=== PATIENT | female | born 1965 | race Caucasian/White ===

== ENCOUNTER → 2016-12-21 | Outpatient (CLI) | payer BC ==
[~2016-12-21] MED LIST: ACTE80IN IV; ALEV220C2 PO; APIDINJ SC; ARAV20TA PO; AZEL0.055; CAMRTAB PO; CENTTAB47 PO; CITR1CHW PO; ESTR25TA PO; IBUP600T26 PO; LEXA1TAB2 PO; LISI-538 PO; LORT5TAB PO; METF500T PO; MONT10TA2 PO; PRED10TA PO; SIMV20TA2 PO; SYNT150T PO; VALT500T PO; VERA27.5; [UNRECOGNIZED DRUG - OTHER] SQ
[2016-12-21 16:43] LABS: BASO # 0.1 K/mm3 (0.0-0.2); BASO % 1.5 % (0.0-1.0); EOS # 0.5 K/mm3 (0.0-0.50); EOS % 11.6 % (0.0-3.0); LARGE UNSTAINED CELL # 0.1 K/mm3 (0.0-0.4); LYMPH # 1.5 K/mm3 (1.5-4.5); LYMPH % 32.9 % (24.0-44.0); MEAN CORPUSCULAR HEMOGLOBIN 33.6 pg (27.0-33.0); MEAN CORPUSCULAR HGB CONC 32.5 g/dl (32.0-36.5); MEAN CORPUSCULAR VOLUME 103.5 fl (80.0-96.0); MONO # 0.4 K/mm3 (0.0-0.8); MONO % 8.2 % (0.0-5.0); NEUTROPHILS # 1.9 K/mm3 (1.8-7.7); NEUTROPHILS % 43.8 % (36.0-66.0); PLATELET COUNT, AUTOMATED 144 k/mm3 (150-450); RED CELL DISTRIBUTION WIDTH 13.1 % (11.5-14.5); WHITE BLOOD COUNT 4.3 K/mm3 (4.0-10.0)
[2016-12-21 17:01] LABS: ALBUMIN 3.4 GM/DL (3.2-5.2); CREATININE FOR GFR 1.17 MG/DL (0.55-1.02); GLOMERULAR FILTRATION RATE 52.1 (>51)
== END ==
LOC: M WUC 13:56
PROVIDERS: ATTEND Internal Medicine Rheumatology
DX: M05.79 Rheumatoid arthritis with rheumatoid factor of multiple sites without organ or systems involvement (principal); Z79.899 Other long term (current) drug therapy

== ENCOUNTER → 2017-01-18 | Outpatient (CLI) | payer BC ==
[2017-01-18 15:11] LABS: BASO % 0.9 % (0.0-1.0); EOS # 0.5 K/mm3 (0.0-0.50); EOS % 11.4 % (0.0-3.0); LARGE UNSTAINED CELL # 0.1 K/mm3 (0.0-0.4); LARGE UNSTAINED CELL % 1.8 % (0.0-4.0); LYMPH # 1.7 K/mm3 (1.5-4.5); MEAN CORPUSCULAR HEMOGLOBIN 34.5 pg (27.0-33.0); MEAN CORPUSCULAR HGB CONC 33.3 g/dl (32.0-36.5); MEAN CORPUSCULAR VOLUME 103.6 fl (80.0-96.0); MONO # 0.3 K/mm3 (0.0-0.8); MONO % 7.3 % (0.0-5.0); NEUTROPHILS # 1.9 K/mm3 (1.8-7.7); NEUTROPHILS % 42.7 % (36.0-66.0); PLATELET COUNT, AUTOMATED 187 k/mm3 (150-450); RED CELL DISTRIBUTION WIDTH 11.9 % (11.5-14.5); WHITE BLOOD COUNT 4.4 K/mm3 (4.0-10.0)
[2017-01-18 15:43] LABS: ALBUMIN 3.5 GM/DL (3.2-5.2); CREATININE FOR GFR 1.25 MG/DL (0.55-1.02); GLOMERULAR FILTRATION RATE 48.3 (>51)
== END ==
LOC: M WUC 13:37
PROVIDERS: ATTEND Internal Medicine Rheumatology
DX: M05.79 Rheumatoid arthritis with rheumatoid factor of multiple sites without organ or systems involvement (principal); Z79.899 Other long term (current) drug therapy

== ENCOUNTER → 2017-02-16 | Outpatient (CLI) | payer BC ==
[2017-02-16 16:37] LABS: BASO % 0.6 % (0.0-1.0); EOS # 0.3 K/mm3 (0.0-0.50); EOS % 5.1 % (0.0-3.0); LARGE UNSTAINED CELL # 0.1 K/mm3 (0.0-0.4); LARGE UNSTAINED CELL % 1.1 % (0.0-4.0); LYMPH # 1.4 K/mm3 (1.5-4.5); LYMPH % 24.7 % (24.0-44.0); MEAN CORPUSCULAR HEMOGLOBIN 33.2 pg (27.0-33.0); MEAN CORPUSCULAR HGB CONC 32.2 g/dl (32.0-36.5); MEAN CORPUSCULAR VOLUME 103.3 fl (80.0-96.0); MONO # 0.4 K/mm3 (0.0-0.8); MONO % 7.2 % (0.0-5.0); NEUTROPHILS # 3.3 K/mm3 (1.8-7.7); NEUTROPHILS % 61.3 % (36.0-66.0); PLATELET COUNT, AUTOMATED 209 k/mm3 (150-450); WHITE BLOOD COUNT 5.4 K/mm3 (4.0-10.0)
[2017-02-16 18:13] LABS: ALBUMIN 3.6 GM/DL (3.2-5.2); CREATININE FOR GFR 1.13 MG/DL (0.55-1.02); GLOMERULAR FILTRATION RATE 54.3 (>51)
== END ==
LOC: M WUC 15:04
PROVIDERS: ATTEND Internal Medicine Rheumatology
DX: M05.79 Rheumatoid arthritis with rheumatoid factor of multiple sites without organ or systems involvement (principal); Z79.899 Other long term (current) drug therapy

== ENCOUNTER → 2017-02-16 | Outpatient (CLI) | payer BC ==
[2017-02-16 18:54] LABS: FREE T4 0.96 NG/DL (0.76-1.46)
== END ==
LOC: M WUC 15:09
PROVIDERS: ATTEND Internal Medicine Endocrinology, Diabetes & Metabolism
DX: E03.9 Hypothyroidism, unspecified (principal)

== ENCOUNTER → 2017-03-18 | Outpatient (CLI) | payer BC ==
[2017-03-18 18:10] LABS: ALBUMIN 3.3 GM/DL (3.2-5.2); ALBUMIN/GLOBULIN RATIO 1.14 (1.00-1.93); ALKALINE PHOSPHATASE 112 U/L (45-117); ALT/SGPT 29 U/L (12-78); ANION GAP 6 MEQ/L (8-16); AST/SGOT 17 U/L (15-37); BILIRUBIN,TOTAL 0.2 MG/DL (0.2-1.0); BLOOD UREA NITROGEN 13 MG/DL (7-18); CALCIUM LEVEL 8.3 MG/DL (8.5-10.1); CARBON DIOXIDE LEVEL 30 MEQ/L (21-32); CHLORIDE LEVEL 99 MEQ/L (98-107); CHOLESTEROL LEVEL 218 MG/DL (<200); CREATININE FOR GFR 1.03 MG/DL (0.55-1.02); GLOMERULAR FILTRATION RATE > 60.0 (>51); GLUCOSE, FASTING 271 MG/DL (70-105); POTASSIUM SERUM 4.3 MEQ/L (3.5-5.1); SODIUM LEVEL 135 MEQ/L (136-145); TOTAL PROTEIN 6.2 GM/DL (6.4-8.2); TRIGLYCERIDES LEVEL 117 MG/DL (<150)
== END ==
LOC: M WUC 15:10
PROVIDERS: ATTEND Family Medicine
DX: E78.2 Mixed hyperlipidemia (principal)

== ENCOUNTER → 2017-03-18 | Outpatient (CLI) | payer BC ==
[2017-03-18 17:16] LABS: BASO % 0.5 % (0.0-1.0); EOS # 0.6 K/mm3 (0.0-0.50); EOS % 13.6 % (0.0-3.0); LARGE UNSTAINED CELL # 0.1 K/mm3 (0.0-0.4); LARGE UNSTAINED CELL % 2.4 % (0.0-4.0); LYMPH # 1.5 K/mm3 (1.5-4.5); MEAN CORPUSCULAR HEMOGLOBIN 33.8 pg (27.0-33.0); MEAN CORPUSCULAR HGB CONC 32.9 g/dl (32.0-36.5); MEAN CORPUSCULAR VOLUME 102.8 fl (80.0-96.0); MONO # 0.3 K/mm3 (0.0-0.8); MONO % 6.2 % (0.0-5.0); NEUTROPHILS % 43.3 % (36.0-66.0); PLATELET COUNT, AUTOMATED 156 k/mm3 (150-450); RED CELL DISTRIBUTION WIDTH 12.2 % (11.5-14.5); WHITE BLOOD COUNT 4.5 K/mm3 (4.0-10.0)
[2017-03-18 18:07] LABS: ALBUMIN 3.3 GM/DL (3.2-5.2); ALT/SGPT 31 U/L (12-78); BLOOD UREA NITROGEN 13 MG/DL (7-18); GLOMERULAR FILTRATION RATE > 60.0 (>51)
== END ==
LOC: M WUC 15:08
PROVIDERS: ATTEND Internal Medicine Rheumatology
DX: M05.79 Rheumatoid arthritis with rheumatoid factor of multiple sites without organ or systems involvement (principal); Z79.899 Other long term (current) drug therapy

== ENCOUNTER → 2017-04-14 | Outpatient (CLI) | payer BC ==
[2017-04-14 18:11] LABS: ALBUMIN 3.6 GM/DL (3.2-5.2); ALT/SGPT 35 U/L (12-78); BLOOD UREA NITROGEN 19 MG/DL (7-18); CREATININE FOR GFR 1.11 MG/DL (0.55-1.02); GLOMERULAR FILTRATION RATE 55.4 (>51)
[2017-04-14 18:22] LABS: VITAMIN B12 LEVEL > 2000 PG/ML (247-911)
[2017-04-14 18:33] LABS: BASO % 0.7 % (0.0-1.0); EOS # 0.6 K/mm3 (0.0-0.50); EOS % 12.4 % (0.0-3.0); LARGE UNSTAINED CELL # 0.1 K/mm3 (0.0-0.4); LARGE UNSTAINED CELL % 1.3 % (0.0-4.0); LYMPH # 1.5 K/mm3 (1.5-4.5); MEAN CORPUSCULAR HEMOGLOBIN 34.9 pg (27.0-33.0); MEAN CORPUSCULAR HGB CONC 33.3 g/dl (32.0-36.5); MEAN CORPUSCULAR VOLUME 104.9 fl (80.0-96.0); MONO # 0.4 K/mm3 (0.0-0.8); MONO % 6.7 % (0.0-5.0); NEUTROPHILS # 2.6 K/mm3 (1.8-7.7); NEUTROPHILS % 49.8 % (36.0-66.0); PLATELET COUNT, AUTOMATED 203 k/mm3 (150-450); RED CELL DISTRIBUTION WIDTH 12.1 % (11.5-14.5); RETIC HEMOGLOBIN CONTENT CHr 34.9 PG (24-36); RETICULOCYTE ABSOLUTE ADVIA212 61 x10(9)/L (17-77); WHITE BLOOD COUNT 5.2 K/mm3 (4.0-10.0)
== END ==
LOC: M WUC 14:04
PROVIDERS: ATTEND Internal Medicine Rheumatology
DX: M05.79 Rheumatoid arthritis with rheumatoid factor of multiple sites without organ or systems involvement (principal); Z79.899 Other long term (current) drug therapy; N18.3 Chronic kidney disease, stage 3 (moderate); D51.0 Vitamin B12 deficiency anemia due to intrinsic factor deficiency

== ENCOUNTER → 2017-05-12 | Outpatient (CLI) | payer BC ==
[2017-05-12 18:37] LABS: ALBUMIN 3.9 GM/DL (3.2-5.2); ALT/SGPT 39 U/L (12-78); BLOOD UREA NITROGEN 14 MG/DL (7-18); CREATININE FOR GFR 1.02 MG/DL (0.55-1.02); GLOMERULAR FILTRATION RATE > 60.0 (>51)
[2017-05-12 19:52] LABS: BASO # 0.1 K/mm3 (0.0-0.2); BASO % 1.6 % (0.0-1.0); EOS % 16.1 % (0.0-3.0); LARGE UNSTAINED CELL # 0.1 K/mm3 (0.0-0.4); LARGE UNSTAINED CELL % 1.2 % (0.0-4.0); LYMPH # 1.9 K/mm3 (1.5-4.5); LYMPH % 31.5 % (24.0-44.0); MEAN CORPUSCULAR HEMOGLOBIN 34.9 pg (27.0-33.0); MEAN CORPUSCULAR HGB CONC 33.7 g/dl (32.0-36.5); MEAN CORPUSCULAR VOLUME 103.6 fl (80.0-96.0); MONO # 0.4 K/mm3 (0.0-0.8); MONO % 5.9 % (0.0-5.0); NEUTROPHILS # 2.6 K/mm3 (1.8-7.7); NEUTROPHILS % 43.7 % (36.0-66.0); PLATELET COUNT, AUTOMATED 172 k/mm3 (150-450)
== END ==
LOC: M WUC 13:09
PROVIDERS: ATTEND Internal Medicine Rheumatology
DX: M05.79 Rheumatoid arthritis with rheumatoid factor of multiple sites without organ or systems involvement (principal); Z79.899 Other long term (current) drug therapy

== ENCOUNTER → 2017-05-25 | Outpatient (CLI) | payer BC ==
[2017-05-25 17:47] LABS: MEAN CORPUSCULAR HEMOGLOBIN 34.7 pg (27.0-33.0); MEAN CORPUSCULAR HGB CONC 33.8 g/dl (32.0-36.5); MEAN CORPUSCULAR VOLUME 102.7 fl (80.0-96.0); RED CELL DISTRIBUTION WIDTH 12.1 % (11.5-14.5); WHITE BLOOD COUNT 5.1 K/mm3 (4.0-10.0)
[2017-05-25 18:24] LABS: ALBUMIN 3.8 GM/DL (3.2-5.2); ALBUMIN/GLOBULIN RATIO 1.12 (1.00-1.93); ALKALINE PHOSPHATASE 94 U/L (45-117); ALT/SGPT 41 U/L (12-78); ANION GAP 4 MEQ/L (8-16); AST/SGOT 26 U/L (15-37); BILIRUBIN,TOTAL 0.5 MG/DL (0.2-1.0); BLOOD UREA NITROGEN 16 MG/DL (7-18); CALCIUM LEVEL 9.3 MG/DL (8.5-10.1); CARBON DIOXIDE LEVEL 32 MEQ/L (21-32); CHLORIDE LEVEL 101 MEQ/L (98-107); CREATININE FOR GFR 0.96 MG/DL (0.55-1.02); GLOMERULAR FILTRATION RATE > 60.0 (>51); GLUCOSE, FASTING 69 MG/DL (70-105); IMMUNOGLOBULIN G 1000 MG/DL (681-1648); POTASSIUM SERUM 4.3 MEQ/L (3.5-5.1); SODIUM LEVEL 137 MEQ/L (136-145); TOTAL PROTEIN 7.2 GM/DL (6.4-8.2)
[2017-05-25 21:24] LABS: BASOPHILS 1 % (0-4); EOSINOPHILS 12 % (0-5)
== END ==
LOC: M WUC 13:51
PROVIDERS: ATTEND Allergy & Immunology Allergy
DX: D83.9 Common variable immunodeficiency, unspecified (principal)

== ENCOUNTER → 2017-06-09 | Outpatient (CLI) | payer BC ==
[~2017-06-09] MED LIST changes: +IBUP-1022 PO; -IBUP600T26 PO; -METF500T PO; +METF500T13 PO
[2017-06-09 11:56] LABS: BASO % 0.9 % (0.0-1.0); EOS # 0.5 K/mm3 (0.0-0.50); EOS % 9.6 % (0.0-3.0); LARGE UNSTAINED CELL # 0.1 K/mm3 (0.0-0.4); LARGE UNSTAINED CELL % 1.4 % (0.0-4.0); LYMPH # 1.4 K/mm3 (1.5-4.5); LYMPH % 26.8 % (24.0-44.0); MEAN CORPUSCULAR HEMOGLOBIN 34.3 pg (27.0-33.0); MEAN CORPUSCULAR HGB CONC 34.1 g/dl (32.0-36.5); MEAN CORPUSCULAR VOLUME 100.5 fl (80.0-96.0); MONO # 0.3 K/mm3 (0.0-0.8); MONO % 6.6 % (0.0-5.0); NEUTROPHILS # 2.7 K/mm3 (1.8-7.7); NEUTROPHILS % 54.6 % (36.0-66.0); PLATELET COUNT, AUTOMATED 184 k/mm3 (150-450); RED CELL DISTRIBUTION WIDTH 12.3 % (11.5-14.5); WHITE BLOOD COUNT 4.8 K/mm3 (4.0-10.0)
[2017-06-09 12:29] LABS: ALBUMIN 3.8 GM/DL (3.2-5.2); ALT/SGPT 24 U/L (12-78); BLOOD UREA NITROGEN 22 MG/DL (7-18); GLOMERULAR FILTRATION RATE > 60.0 (>51)
== END ==
LOC: M WUC 10:33
PROVIDERS: ATTEND Internal Medicine Rheumatology
DX: M05.79 Rheumatoid arthritis with rheumatoid factor of multiple sites without organ or systems involvement (principal); Z79.899 Other long term (current) drug therapy

== ENCOUNTER → 2017-07-19 | Outpatient (CLI) | payer BC ==
[2017-07-19 18:32] LABS: BASO % 0.6 % (0.0-1.0); EOS # 0.4 K/mm3 (0.0-0.50); EOS % 6.1 % (0.0-3.0); LARGE UNSTAINED CELL # 0.1 K/mm3 (0.0-0.4); LARGE UNSTAINED CELL % 1.5 % (0.0-4.0); LYMPH # 1.8 K/mm3 (1.5-4.5); LYMPH % 27.4 % (24.0-44.0); MEAN CORPUSCULAR HEMOGLOBIN 34.6 pg (27.0-33.0); MEAN CORPUSCULAR HGB CONC 34.4 g/dl (32.0-36.5); MEAN CORPUSCULAR VOLUME 100.4 fl (80.0-96.0); MONO # 0.6 K/mm3 (0.0-0.8); MONO % 8.7 % (0.0-5.0); NEUTROPHILS # 3.7 K/mm3 (1.8-7.7); NEUTROPHILS % 55.7 % (36.0-66.0); PLATELET COUNT, AUTOMATED 245 k/mm3 (150-450); RED CELL DISTRIBUTION WIDTH 12.1 % (11.5-14.5); WHITE BLOOD COUNT 6.7 K/mm3 (4.0-10.0)
[2017-07-19 20:10] LABS: ALBUMIN 3.6 GM/DL (3.2-5.2); ALT/SGPT 19 U/L (12-78); BLOOD UREA NITROGEN 13 MG/DL (7-18); CREATININE FOR GFR 0.93 MG/DL (0.55-1.02); GLOMERULAR FILTRATION RATE > 60.0 (>51)
== END ==
LOC: M WUC 12:29
PROVIDERS: ATTEND Internal Medicine Rheumatology
DX: M05.79 Rheumatoid arthritis with rheumatoid factor of multiple sites without organ or systems involvement (principal); Z79.899 Other long term (current) drug therapy

== ENCOUNTER → 2017-07-19 | Outpatient (CLI) | payer BC ==
--- NOTE | 2017-07-19 15:13 | REP ---
LEFT RIB SERIES: Five views including PA chest. HISTORY: Contusion. Comparison chest x-ray January 17, 2014. FINDINGS: PA chest radiograph demonstrates a zone of plate-like atelectasis in the left lower lobe. No visible pneumothorax. Minimal plate-like atelectasis is seen in the right base. Mediastinum is not widened. Multiple views of the left rib cage demonstrate minimally displaced left 7th and 8th rib fractures and nondisplaced left 6th rib fracture posterolaterally. IMPRESSION: Fractures of the left 6th, 7th, and 8th ribs. Bibasilar discoid atelectasis. No pneumothorax seen. Signed by Angel Caballero MD 07/19/2017 03:36 P
== END ==
LOC: M WUC 13:36
PROVIDERS: ATTEND Physician Assistant
DX: S20.222A Contusion of left back wall of thorax, initial encounter (principal); X58.XXXA Exposure to other specified factors, initial encounter; Y92.89 Other specified places as the place of occurrence of the external cause; Y99.9 Unspecified external cause status

== ENCOUNTER → 2017-08-12 | Outpatient (CLI) | payer BC ==
[2017-08-12 19:34] LABS: BASO % 0.6 % (0.0-1.0); EOS # 0.3 K/mm3 (0.0-0.50); LARGE UNSTAINED CELL # 0.1 K/mm3 (0.0-0.4); LARGE UNSTAINED CELL % 2.1 % (0.0-4.0); LYMPH # 1.7 K/mm3 (1.5-4.5); LYMPH % 35.8 % (24.0-44.0); MEAN CORPUSCULAR HEMOGLOBIN 34.4 pg (27.0-33.0); MEAN CORPUSCULAR HGB CONC 33.8 g/dl (32.0-36.5); MEAN CORPUSCULAR VOLUME 101.8 fl (80.0-96.0); MONO # 0.4 K/mm3 (0.0-0.8); MONO % 8.8 % (0.0-5.0); NEUTROPHILS # 2.2 K/mm3 (1.8-7.7); NEUTROPHILS % 46.8 % (36.0-66.0); PLATELET COUNT, AUTOMATED 212 k/mm3 (150-450); WHITE BLOOD COUNT 4.6 K/mm3 (4.0-10.0)
[2017-08-12 19:50] LABS: ALBUMIN 3.5 GM/DL (3.2-5.2); CREATININE FOR GFR 1.04 MG/DL (0.55-1.02); GLOMERULAR FILTRATION RATE 59.7 (>51)
== END ==
LOC: M WUC 14:07
PROVIDERS: ATTEND Internal Medicine Rheumatology
DX: M05.79 Rheumatoid arthritis with rheumatoid factor of multiple sites without organ or systems involvement (principal); Z79.899 Other long term (current) drug therapy

== ENCOUNTER → 2017-09-08 | Outpatient (CLI) | payer BC ==
[2017-09-08 19:56] LABS: BASO % 0.6 % (0.0-1.0); EOS # 0.3 10^3/uL (0.0-0.50); IMMATURE GRANULOCYTE % 0.2 % (0-0); LYMPH # 1.9 10^3/uL (1.5-4.5); LYMPH % 36.8 % (24.0-44.0); MEAN CORPUSCULAR HEMOGLOBIN 34.1 pg (27.0-33.0); MEAN CORPUSCULAR HGB CONC 33.9 g/dl (32.0-36.5); MEAN CORPUSCULAR VOLUME 100.5 fl (80.0-96.0); MONO # 0.6 10^3/uL (0.0-0.8); MONO % 10.7 % (0.0-5.0); NEUTROPHILS # 2.4 10^3/uL (1.8-7.7); NEUTROPHILS % 46.7 % (36.0-66.0); PLATELET COUNT, AUTOMATED 211 10^3/uL (150-450); RED CELL DISTRIBUTION WIDTH 11.9 % (11.5-14.5); WHITE BLOOD COUNT 5.2 10^3/uL (4.0-10.0)
[2017-09-08 19:58] LABS: ALBUMIN 3.7 GM/DL (3.2-5.2); CREATININE FOR GFR 1.1 MG/DL (0.55-1.02)
== END ==
LOC: M WUC 14:21
PROVIDERS: ATTEND Internal Medicine Rheumatology
DX: M05.79 Rheumatoid arthritis with rheumatoid factor of multiple sites without organ or systems involvement (principal); Z79.899 Other long term (current) drug therapy

== ENCOUNTER → 2017-10-27 | Outpatient (CLI) | payer BC ==
[2017-10-27 19:21] LABS: VITAMIN B12 LEVEL > 2000 PG/ML (247-911)
[2017-10-27 19:33] LABS: BASO # 0.1 10^3/uL (0.0-0.2); BASO % 1.1 % (0.0-1.0); EOS # 0.3 10^3/uL (0.0-0.50); EOS % 5.9 % (0.0-3.0); IMMATURE GRANULOCYTE % 0.2 % (0-0); LYMPH # 1.7 10^3/uL (1.5-4.5); LYMPH % 32.8 % (24.0-44.0); MEAN CORPUSCULAR HEMOGLOBIN 34.7 pg (27.0-33.0); MONO # 0.5 10^3/uL (0.0-0.8); NEUTROPHILS # 2.7 10^3/uL (1.8-7.7); PLATELET COUNT, AUTOMATED 211 10^3/uL (150-450); RED CELL DISTRIBUTION WIDTH 11.7 % (11.5-14.5); WHITE BLOOD COUNT 5.3 10^3/uL (4.0-10.0)
[2017-10-27 20:03] LABS: ALBUMIN 3.7 GM/DL (3.2-5.2); ALBUMIN/GLOBULIN RATIO 1.12 (1.00-1.93); ALKALINE PHOSPHATASE 99 U/L (45-117); ALT/SGPT 28 U/L (12-78); ANION GAP 5 MEQ/L (8-16); AST/SGOT 15 U/L (7-37); BILIRUBIN,TOTAL 0.4 MG/DL (0.2-1.0); BLOOD UREA NITROGEN 19 MG/DL (7-18); CALCIUM LEVEL 9.1 MG/DL (8.5-10.1); CARBON DIOXIDE LEVEL 33 MEQ/L (21-32); CHLORIDE LEVEL 103 MEQ/L (98-107); CHOLESTEROL LEVEL 256 MG/DL (<200); CREATININE FOR GFR 1.01 MG/DL (0.55-1.02); FREE T4 0.94 NG/DL (0.76-1.46); GLOMERULAR FILTRATION RATE > 60.0 (>51); GLUCOSE, FASTING 228 MG/DL (70-105); POTASSIUM SERUM 4.2 MEQ/L (3.5-5.1); SODIUM LEVEL 141 MEQ/L (136-145); TRIGLYCERIDES LEVEL 150 MG/DL (<150)
== END ==
LOC: M WUC 11:57
PROVIDERS: ATTEND Internal Medicine Endocrinology, Diabetes & Metabolism
DX: E10.65 Type 1 diabetes mellitus with hyperglycemia (principal)

== ENCOUNTER → 2017-10-27 | Outpatient (CLI) | payer BC ==
[2017-10-27 19:33] LABS: BASO # 0.1 10^3/uL (0.0-0.2); BASO % 1.1 % (0.0-1.0); EOS # 0.3 10^3/uL (0.0-0.50); EOS % 5.9 % (0.0-3.0); IMMATURE GRANULOCYTE % 0.2 % (0-0); LYMPH # 1.9 10^3/uL (1.5-4.5); LYMPH % 34.2 % (24.0-44.0); MEAN CORPUSCULAR HEMOGLOBIN 33.7 pg (27.0-33.0); MEAN CORPUSCULAR HGB CONC 34.4 g/dl (32.0-36.5); MEAN CORPUSCULAR VOLUME 98.1 fl (80.0-96.0); MONO # 0.5 10^3/uL (0.0-0.8); MONO % 8.6 % (0.0-5.0); NEUTROPHILS # 2.7 10^3/uL (1.8-7.7); PLATELET COUNT, AUTOMATED 208 10^3/uL (150-450); RED CELL DISTRIBUTION WIDTH 11.7 % (11.5-14.5); WHITE BLOOD COUNT 5.5 10^3/uL (4.0-10.0)
[2017-10-27 20:01] LABS: ALBUMIN 3.7 GM/DL (3.2-5.2); ALT/SGPT 33 U/L (12-78); BLOOD UREA NITROGEN 18 MG/DL (7-18); CREATININE FOR GFR 0.98 MG/DL (0.55-1.02); GLOMERULAR FILTRATION RATE > 60.0 (>51)
== END ==
LOC: M WUC 11:52
PROVIDERS: ATTEND Internal Medicine Rheumatology
DX: M05.79 Rheumatoid arthritis with rheumatoid factor of multiple sites without organ or systems involvement (principal); Z79.899 Other long term (current) drug therapy

== ENCOUNTER → 2017-11-30 | Outpatient (CLI) | payer BC ==
[2017-11-30 16:43] LABS: BASO % 0.5 % (0.0-1.0); EOS # 0.3 10^3/uL (0.0-0.50); EOS % 3.5 % (0.0-3.0); HEMATOCRIT 39.2 % (36.0-47.0); HEMOGLOBIN 13.4 g/dl (12.0-16.0); IMMATURE GRANULOCYTE % 0.3 % (0-0); LYMPH # 1.4 10^3/uL (1.5-4.5); LYMPH % 18.7 % (24.0-44.0); MEAN CORPUSCULAR HEMOGLOBIN 33.8 pg (27.0-33.0); MEAN CORPUSCULAR HGB CONC 34.2 g/dl (32.0-36.5); MEAN CORPUSCULAR VOLUME 98.7 fl (80.0-96.0); MONO # 0.6 10^3/uL (0.0-0.8); MONO % 8.2 % (0.0-5.0); NEUTROPHILS # 5.2 10^3/uL (1.8-7.7); NEUTROPHILS % 68.8 % (36.0-66.0); PLATELET COUNT, AUTOMATED 215 10^3/uL (150-450); RED BLOOD COUNT 3.97 10^6/uL (4.00-5.40); RED CELL DISTRIBUTION WIDTH 11.8 % (11.5-14.5); WHITE BLOOD COUNT 7.5 10^3/uL (4.0-10.0)
[2017-11-30 17:18] LABS: BLOOD UREA NITROGEN 13 MG/DL (7-18)
[2017-11-30 17:18] LABS: ALBUMIN 3.8 GM/DL (3.2-5.2); ALT/SGPT 30 U/L (12-78); CREATININE FOR GFR 1.23 MG/DL (0.55-1.02)
== END ==
LOC: M WUC 13:30
DX: M05.79 Rheumatoid arthritis with rheumatoid factor of multiple sites without organ or systems involvement (principal); Z51.81 Encounter for therapeutic drug level monitoring; Z79.899 Other long term (current) drug therapy
CPT/HCPCS: 85025

== ENCOUNTER → 2017-11-30 | Outpatient (CLI) | payer BC ==
[2017-11-30 16:42] LABS: BASO # 0.1 10^3/uL (0.0-0.2); BASO % 0.7 % (0.0-1.0); EOS # 0.2 10^3/uL (0.0-0.50); EOS % 3.2 % (0.0-3.0); HEMATOCRIT 39.8 % (36.0-47.0); HEMOGLOBIN 13.4 g/dl (12.0-16.0); IMMATURE GRANULOCYTE % 0.3 % (0-0); LYMPH # 1.5 10^3/uL (1.5-4.5); LYMPH % 19.5 % (24.0-44.0); MEAN CORPUSCULAR HEMOGLOBIN 33.1 pg (27.0-33.0); MEAN CORPUSCULAR HGB CONC 33.7 g/dl (32.0-36.5); MEAN CORPUSCULAR VOLUME 98.3 fl (80.0-96.0); MONO # 0.6 10^3/uL (0.0-0.8); MONO % 8.4 % (0.0-5.0); NEUTROPHILS # 5.2 10^3/uL (1.8-7.7); NEUTROPHILS % 67.9 % (36.0-66.0); PLATELET COUNT, AUTOMATED 217 10^3/uL (150-450); RED BLOOD COUNT 4.05 10^6/uL (4.00-5.40); RED CELL DISTRIBUTION WIDTH 11.8 % (11.5-14.5); WHITE BLOOD COUNT 7.6 10^3/uL (4.0-10.0)
[2017-11-30 17:21] LABS: ALBUMIN 3.7 GM/DL (3.2-5.2); ALBUMIN/GLOBULIN RATIO 1.23 (1.00-1.93); ALKALINE PHOSPHATASE 104 U/L (45-117); ALT/SGPT 31 U/L (12-78); ANION GAP 9 MEQ/L (8-16); AST/SGOT 23 U/L (7-37); BILIRUBIN,TOTAL 0.4 MG/DL (0.2-1.0); BLOOD UREA NITROGEN 13 MG/DL (7-18); CALCIUM LEVEL 8.6 MG/DL (8.5-10.1); CARBON DIOXIDE LEVEL 30 MEQ/L (21-32); CHLORIDE LEVEL 95 MEQ/L (98-107); CREATININE FOR GFR 1.18 MG/DL (0.55-1.02); GLOMERULAR FILTRATION RATE 51.4 (>51); GLUCOSE, FASTING 393 MG/DL (70-105); IMMUNOGLOBULIN G 941 MG/DL (681-1648); POTASSIUM SERUM 4.4 MEQ/L (3.5-5.1); SODIUM LEVEL 134 MEQ/L (136-145); TOTAL PROTEIN 6.7 GM/DL (6.4-8.2)
== END ==
LOC: M WUC 13:36
DX: D83.9 Common variable immunodeficiency, unspecified (principal)
CPT/HCPCS: 80053

== ENCOUNTER → 2017-12-30 | Outpatient (CLI) | payer BC ==
[2017-12-30 17:39] LABS: BASO % 0.6 % (0.0-1.0); EOS # 0.5 10^3/uL (0.0-0.50); EOS % 8.5 % (0.0-3.0); HEMATOCRIT 38.8 % (36.0-47.0); IMMATURE GRANULOCYTE % 0.2 % (0-0); LYMPH # 1.6 10^3/uL (1.5-4.5); LYMPH % 29.3 % (24.0-44.0); MEAN CORPUSCULAR HEMOGLOBIN 33.2 pg (27.0-33.0); MEAN CORPUSCULAR HGB CONC 33.5 g/dl (32.0-36.5); MONO # 0.5 10^3/uL (0.0-0.8); MONO % 9.6 % (0.0-5.0); NEUTROPHILS # 2.7 10^3/uL (1.8-7.7); NEUTROPHILS % 51.8 % (36.0-66.0); PLATELET COUNT, AUTOMATED 192 10^3/uL (150-450); RED BLOOD COUNT 3.92 10^6/uL (4.00-5.40); RED CELL DISTRIBUTION WIDTH 11.7 % (11.5-14.5); WHITE BLOOD COUNT 5.3 10^3/uL (4.0-10.0)
[2017-12-30 17:46] LABS: ALBUMIN 3.5 GM/DL (3.2-5.2); ALT/SGPT 28 U/L (12-78); CREATININE FOR GFR 1.05 MG/DL (0.55-1.30); GLOMERULAR FILTRATION RATE 58.8 (>51)
== END ==
LOC: M WUC 14:04
DX: M05.79 Rheumatoid arthritis with rheumatoid factor of multiple sites without organ or systems involvement (principal); Z79.899 Other long term (current) drug therapy
CPT/HCPCS: 84460

== ENCOUNTER → 2018-04-13 | Outpatient (CLI) | payer BC | LOC: M WHC 08:25 | DX: Z12.31 Encounter for screening mammogram for malignant neoplasm of breast (principal); Z78.0 Asymptomatic menopausal state | CPT/HCPCS: 77067 ==

== ENCOUNTER → 2018-05-24 | Outpatient (CLI) | payer BC ==
[2018-05-24 18:25] LABS: BASO % 0.9 % (0.0-1.0); EOS # 0.3 10^3/uL (0.0-0.50); EOS % 5.8 % (0.0-3.0); HEMATOCRIT 39.7 % (36.0-47.0); HEMOGLOBIN 13.6 g/dl (12.0-15.5); IMMATURE GRANULOCYTE % 0.2 % (0-3.0); LYMPH # 1.8 10^3/uL (1.5-4.5); LYMPH % 39.6 % (24.0-44.0); MEAN CORPUSCULAR HEMOGLOBIN 33.9 pg (27.0-33.0); MEAN CORPUSCULAR HGB CONC 34.3 g/dl (32.0-36.5); MONO # 0.5 10^3/uL (0.0-0.8); MONO % 11.5 % (0.0-5.0); NEUTROPHILS # 1.9 10^3/uL (1.8-7.7); PLATELET COUNT, AUTOMATED 220 10^3/uL (150-450); RED BLOOD COUNT 4.01 10^6/uL (4.00-5.40); RED CELL DISTRIBUTION WIDTH 12.4 % (11.5-14.5); WHITE BLOOD COUNT 4.5 10^3/uL (4.0-10.0)
[2018-05-24 18:54] LABS: ALBUMIN 3.6 GM/DL (3.2-5.2); ALBUMIN/GLOBULIN RATIO 1.09 (1.00-1.93); ALKALINE PHOSPHATASE 100 U/L (45-117); ALT/SGPT 35 U/L (12-78); ANION GAP 8 MEQ/L (8-16); AST/SGOT 21 U/L (7-37); BILIRUBIN,TOTAL 0.3 MG/DL (0.2-1.0); BLOOD UREA NITROGEN 16 MG/DL (7-18); CALCIUM LEVEL 8.5 MG/DL (8.5-10.1); CARBON DIOXIDE LEVEL 30 MEQ/L (21-32); CHLORIDE LEVEL 103 MEQ/L (98-107); GLOMERULAR FILTRATION RATE > 60.0 (>51); GLUCOSE, FASTING 110 MG/DL (70-100); IMMUNOGLOBULIN G 912 MG/DL (681-1648); POTASSIUM SERUM 4.3 MEQ/L (3.5-5.1); SODIUM LEVEL 141 MEQ/L (136-145); TOTAL PROTEIN 6.9 GM/DL (6.4-8.2)
== END ==
LOC: M WUC 13:57
DX: D83.9 Common variable immunodeficiency, unspecified (principal)
CPT/HCPCS: 80053

== ENCOUNTER → 2018-12-05 | Outpatient (CLI) | payer BC ==
--- NOTE | 2018-12-06 02:57 | REP ---
Clinical: Arthritis. Technique: AP, lateral, bilateral oblique views of the right and left hand. Findings: Symmetric age-related changes are appreciated and findings include very minimal subchondral sclerosis and joint space narrowing involving the interphalangeal joints as well as the bilateral first metacarpophalangeal joints and radiocarpal joints. No periarticular erosive changes, osteophytes, or significant swelling noted. Impression: Mild age-related changes noted bilaterally.
== END ==
LOC: M CLY 14:53
PROVIDERS: ATTEND Internal Medicine Rheumatology
DX: M19.90 Unspecified osteoarthritis, unspecified site (principal)

== ENCOUNTER → 2018-12-05 | Outpatient (REF) | payer BC | LOC: M SFHCCLAY 14:42 | PROVIDERS: ATTEND Nurse Practitioner Family | DX: Z53.9 Procedure and treatment not carried out, unspecified reason (principal); M06.9 Rheumatoid arthritis, unspecified; E78.2 Mixed hyperlipidemia ==

== ENCOUNTER → 2018-12-07 | Outpatient (REF) | payer BC ==
[2018-12-07 15:50] LABS: BASO % 0.6 % (0.0-1.0); EOS # 0.5 10^3/uL (0.0-0.50); EOS % 7.3 % (0.0-3.0); HEMOGLOBIN 13.5 g/dl (12.0-15.5); LYMPH # 1.5 10^3/uL (1.5-4.5); LYMPH % 24.5 % (24.0-44.0); MEAN CORPUSCULAR HEMOGLOBIN 33.2 pg (27.0-33.0); MEAN CORPUSCULAR HGB CONC 33.8 g/dl (32.0-36.5); MEAN CORPUSCULAR VOLUME 98.3 fl (80.0-96.0); MONO # 0.6 10^3/uL (0.0-0.8); MONO % 10.3 % (0.0-5.0); NEUTROPHILS # 3.5 10^3/uL (1.8-7.7); NEUTROPHILS % 57.1 % (36.0-66.0); PLATELET COUNT, AUTOMATED 201 10^3/uL (150-450); RED BLOOD COUNT 4.07 10^6/uL (4.00-5.40); WHITE BLOOD COUNT 6.2 10^3/uL (4.0-10.0)
[2018-12-07 15:58] LABS: ALBUMIN 3.7 GM/DL (3.2-5.2); ALT/SGPT 21 U/L (12-78); BILIRUBIN,TOTAL 0.3 MG/DL (0.2-1.0); BLOOD UREA NITROGEN 20 MG/DL (7-18); CALCIUM LEVEL 9.3 MG/DL (8.5-10.1); CARBON DIOXIDE LEVEL 32 MEQ/L (21-32); CHLORIDE LEVEL 104 MEQ/L (98-107); CREATININE FOR GFR 1.08 MG/DL (0.55-1.30); GLOMERULAR FILTRATION RATE 56.7 (>51); GLUCOSE, FASTING 72 MG/DL (70-100); POTASSIUM SERUM 4.6 MEQ/L (3.5-5.1); SODIUM LEVEL 141 MEQ/L (136-145)
[2018-12-07 16:05] LABS: HEPATITIS B SURFACE ANTIBODY POSITIVE (POSITIVE)
[2018-12-07 16:16] LABS: HEPATITIS B SURFACE ANTIGEN NEGATIVE (NEGATIVE)
[2018-12-07 16:44] LABS: HEPATITIS C VIRUS ABY INDEX 0.1 INDEX (<0.8)
== END ==
LOC: M LABDRAWP 13:44
PROVIDERS: ATTEND Internal Medicine Rheumatology
DX: M06.9 Rheumatoid arthritis, unspecified (principal)

== ENCOUNTER → 2018-12-23 | Outpatient (REF) | payer BC ==
[2018-12-26 00:06] LABS: HBV HBV DNA not detected IU/mL (.); HEPATITIS A IgG TOTAL Positive (Negative); HEPATITIS B CORE ANTIBODY IGG Positive (Negative); HEPATITIS BE ANTIBODY Negative (Negative); HEPATITIS BE ANTIGEN Negative (Negative)
== END ==
LOC: M SFHCPLAZ 09:43
PROVIDERS: ATTEND Internal Medicine Rheumatology
DX: R76.8 Other specified abnormal immunological findings in serum (principal)

== ENCOUNTER → 2018-12-29 | Outpatient (RCR) | payer BC | LOC: M OT 12-13 08:15 | PROVIDERS: ATTEND Physician Assistant Surgical | DX: Z51.89 Encounter for other specified aftercare (principal); S62.102D Fracture of unspecified carpal bone, left wrist, subsequent encounter for fracture with routine healing ==

== ENCOUNTER 2019-01-05 11:34 | Outpatient (CLI) | payer BC ==
[~2019-01-05] VITALS: Ht 165.7 cm; Wt 90.0 kg
[2019-01-05] MEDS ORDERED: ACETAMINOPHEN TAB 650MG DOSE (2X325MG) PO ONE (11:45)
[2019-01-05 11:50] VITALS: BP 135/73
[2019-01-05] MEDS ORDERED: TOCILIZUMAB IV ONE (12:00)
[2019-01-05] MEDS ORDERED: NS IV ONE (12:00)
[2019-01-05] MEDS ORDERED: [UNRECOGNIZED DRUG - CODE] SC (12:29)
[2019-01-05 13:06] VITALS: BP 106/61
[2019-01-05 13:56] VITALS: BP 105/69
== END 2019-01-05 14:30 | disposition home or self-care (01) ==
LOC: M INFU 11:34
PROVIDERS: ATTEND Internal Medicine Rheumatology
DX: M06.9 Rheumatoid arthritis, unspecified (principal)
CPT/HCPCS: 96365; J3262

== ENCOUNTER → 2019-01-26 | Outpatient (RCR) | payer BC ==
[~2019-01-26] MED LIST changes: +[UNRECOGNIZED DRUG - CODE] SC
== END ==
LOC: M OT 01-04 08:00
PROVIDERS: ATTEND Physician Assistant Surgical
DX: Z51.89 Encounter for other specified aftercare (principal); S62.102D Fracture of unspecified carpal bone, left wrist, subsequent encounter for fracture with routine healing

== ENCOUNTER 2019-02-02 07:44 | Outpatient (CLI) | payer BC ==
[~2019-02-02] VITALS: Ht 165.7 cm; Wt 90.0 kg
[2019-02-02 08:00] VITALS: BP 152/77
[2019-02-02] MEDS ORDERED: NS 1,000 ML IV SCH (08:15)
[2019-02-02] MEDS ORDERED: EPINEPHrine INJ 1 MG/ML 1ML AMP IM PRN (08:30)
[2019-02-02] MEDS ORDERED: methylPREDNISolone INJ 125 MG/2 ML VIAL (J2930) IV PRN (08:30)
[2019-02-02] MEDS ORDERED: ACETAMINOPHEN TAB 650MG DOSE (2X325MG) PO ONE (08:30)
[2019-02-02] MEDS ORDERED: diphenhydrAMINE INJ 50MG/ML VIAL (J1200) IV PRN (08:30)
[2019-02-02] MEDS ORDERED: ALBUTEROL SULFATE 2.5 MG/0.5 ML INH NEB SOLN INH PRN (08:30)
[2019-02-02] MEDS ORDERED: NS IV ONE (09:00)
[2019-02-02] MEDS ORDERED: TOCILIZUMAB IV ONE (09:00)
[2019-02-02 09:50] VITALS: BP 123/78
== END 2019-02-02 09:50 ==
LOC: M INFU 07:44
PROVIDERS: ATTEND Internal Medicine Rheumatology
DX: M06.9 Rheumatoid arthritis, unspecified (principal)
CPT/HCPCS: 96365; J3262

== ENCOUNTER → 2019-02-15 | Outpatient (CLI) | payer BC ==
[2019-02-15 17:30] LABS: ALBUMIN 3.5 GM/DL (3.2-5.2); ALT/SGPT 27 U/L (12-78); BILIRUBIN,TOTAL 0.3 MG/DL (0.2-1.0); BLOOD UREA NITROGEN 14 MG/DL (7-18); C REACTIVE PROTEIN QUANTITATIV < 0.30 MG/DL (0.00-0.30); CARBON DIOXIDE LEVEL 31 MEQ/L (21-32); CHLORIDE LEVEL 99 MEQ/L (98-107); CREATININE FOR GFR 0.88 MG/DL (0.55-1.30); GLOMERULAR FILTRATION RATE > 60.0 (>51); GLUCOSE, FASTING 304 MG/DL (70-100); POTASSIUM SERUM 4.4 MEQ/L (3.5-5.1); SODIUM LEVEL 136 MEQ/L (136-145); TOTAL PROTEIN 6.3 GM/DL (6.4-8.2)
[2019-02-15 17:36] LABS: BASO # 0.1 10^3/uL (0.0-0.2); BASO % 1.2 % (0.0-1.0); EOS # 0.3 10^3/uL (0.0-0.50); EOS % 8.1 % (0.0-3.0); HEMATOCRIT 39.7 % (36.0-47.0); HEMOGLOBIN 13.2 g/dl (12.0-15.5); LYMPH # 1.5 10^3/uL (1.5-4.5); LYMPH % 35.1 % (24.0-44.0); MEAN CORPUSCULAR HEMOGLOBIN 33.4 pg (27.0-33.0); MEAN CORPUSCULAR HGB CONC 33.2 g/dl (32.0-36.5); MEAN CORPUSCULAR VOLUME 100.5 fl (80.0-96.0); MONO # 0.5 10^3/uL (0.0-0.8); MONO % 12.9 % (0.0-5.0); NEUTROPHILS # 1.8 10^3/uL (1.8-7.7); NEUTROPHILS % 42.5 % (36.0-66.0); PLATELET COUNT, AUTOMATED 198 10^3/uL (150-450); RED BLOOD COUNT 3.95 10^6/uL (4.00-5.40); WHITE BLOOD COUNT 4.2 10^3/uL (4.0-10.0)
[2019-02-15 18:07] LABS: ERYTHROCYTE SEDIMENTATION RATE 4 mm/hr (0-30)
== END ==
LOC: M WUC 13:34
PROVIDERS: ATTEND Internal Medicine Rheumatology
DX: M06.9 Rheumatoid arthritis, unspecified (principal)

== ENCOUNTER 2019-02-16 07:54 | Outpatient (RCR) | payer BC | END 2019-02-26 | LOC: M OT 07:54 | PROVIDERS: ATTEND Physician Assistant Surgical | DX: Z51.89 Encounter for other specified aftercare (principal); S62.102D Fracture of unspecified carpal bone, left wrist, subsequent encounter for fracture with routine healing ==

== ENCOUNTER → 2019-02-21 | Outpatient (REF) | payer BC ==
[2019-02-21 12:22] LABS: CRYSTALS, BODY FLUID NONE SEEN (NONE SEEN); SOURCE, BODY FLUID CRYSTALS LFT KNEE
[2019-02-21 12:27] LABS: SOURCE, BODY FLUID LFT KNEE; SYNOVIAL FLUID COLOR PINK (YELLOW)
== END ==
LOC: M SFHCPLAZ 11:41
PROVIDERS: ATTEND Internal Medicine Rheumatology
DX: M25.462 Effusion, left knee (principal)

== ENCOUNTER 2019-03-02 07:48 | Outpatient (CLI) | payer BC ==
[~2019-03-02] VITALS: Ht 162.6 cm; Wt 90.0 kg
[~2019-03-02 07:48] MED LIST changes: +PRED-351 PO; -PRED10TA PO
[2019-03-02 07:55] VITALS: BP 154/73
[2019-03-02] MEDS ORDERED: methylPREDNISolone INJ 125 MG/2 ML VIAL (J2930) IV PRN (08:00)
[2019-03-02] MEDS ORDERED: diphenhydrAMINE INJ 50MG/ML VIAL (J1200) IV PRN (08:00)
[2019-03-02] MEDS ORDERED: EPINEPHrine INJ 1 MG/ML 1ML AMP IM PRN (08:00)
[2019-03-02] MEDS ORDERED: ALBUTEROL SULFATE 2.5 MG/0.5 ML INH NEB SOLN INH PRN (08:00)
[2019-03-02] MEDS ORDERED: ACETAMINOPHEN TAB 650MG DOSE (2X325MG) PO ONE (08:00)
[2019-03-02] MEDS ORDERED: NS 1,000 ML IV SCH (08:00)
[2019-03-02] MEDS ORDERED: [UNRECOGNIZED DRUG - OTHER] IV ONE (09:00)
[2019-03-02 10:00] VITALS: BP 121/73
== END 2019-03-02 10:15 | disposition home or self-care (01) ==
LOC: M INFU 07:48
PROVIDERS: ATTEND Internal Medicine Rheumatology
DX: M06.9 Rheumatoid arthritis, unspecified (principal)
CPT/HCPCS: 96365; J3262

== ENCOUNTER 2019-03-30 07:53 | Outpatient (CLI) | payer BC ==
[~2019-03-30] VITALS: Ht 165.1 cm; Wt 90.0 kg
[2019-03-30 08:00] VITALS: BP 148/70
[2019-03-30] MEDS ORDERED: methylPREDNISolone INJ 125 MG/2 ML VIAL (J2930) IV PRN (08:15)
[2019-03-30] MEDS ORDERED: ALBUTEROL SULFATE 2.5 MG/0.5 ML INH NEB SOLN INH PRN (08:15)
[2019-03-30] MEDS ORDERED: diphenhydrAMINE INJ 50MG/ML VIAL (J1200) IV PRN (08:15)
[2019-03-30] MEDS ORDERED: EPINEPHrine INJ 1 MG/ML 1ML AMP IM PRN (08:15)
[2019-03-30] MEDS ORDERED: NS 1,000 ML IV SCH (08:15)
[2019-03-30] MEDS ORDERED: ACETAMINOPHEN TAB 650MG DOSE (2X325MG) PO ONE (08:15)
[2019-03-30] MEDS ORDERED: [UNRECOGNIZED DRUG - OTHER] IV ONE (08:15)
[2019-03-30 09:55] VITALS: BP 111/73
[2019-03-30 10:30] VITALS: BP 138/69
== END 2019-03-30 10:05 | disposition home or self-care (01) ==
LOC: M INFU 07:53
PROVIDERS: ATTEND Internal Medicine Rheumatology
DX: M06.9 Rheumatoid arthritis, unspecified (principal)
CPT/HCPCS: 96365; J3262

== ENCOUNTER → 2019-04-14 | Outpatient (CLI) | payer BC ==
--- NOTE | 2019-04-14 14:24 | REPMRS ---
Patient History The patient states she had a clinical breast exam in 03/2019. No known family history of cancer. Took hormonal contraceptives for 7 years. Digital Woman Screen Mammo: April 14, 2019 - Exam #: [id number] Bilateral CC and MLO view(s) were taken. Technologist: Jessi Odell, Technologist Prior study comparison: April 13, 2018, digital woman screen mammo performed at [facility]. June 12, 2015, digital mammo diagnostic bilateral, performed at [facility]. December 21, 2013, digital woman screen mammo performed at [facility]. FINDINGS: The breast tissue is heterogeneously dense. This may lower the sensitivity of mammography. There is a moderate amount of heterogeneously dense fibroglandular tissue which is fairly symmetric. There is no interval development of dominant mass, architectural distortion, or clustered microcalcification typical of malignancy. There has been no change in the appearance of the mammogram from the prior studies. 3-D tomosynthesis shows no additional findings. Assessment: BI-RADS/ACR category 1 mammogram. Negative Mammogram. Recommendation Routine screening mammogram of both breasts in 1 year (for women over age 40). This patient's Lifetime Breast Cancer RIsk is estimated at 12.1 %. This mammogram was interpreted with the aid of an FDA-approved computer-aided dectection system. Electronically Signed By: Mario Caballero MD 04/14/19 [id number]
== END ==
LOC: M WHC 08:22
PROVIDERS: ATTEND Nurse Practitioner Women's Health
DX: Z12.31 Encounter for screening mammogram for malignant neoplasm of breast (principal); Z92.0 Personal history of contraception

== ENCOUNTER 2019-04-27 08:02 | Outpatient (CLI) | payer BC ==
[~2019-04-27] VITALS: Ht 165.1 cm; Wt 90.0 kg
[2019-04-27 08:12] VITALS: BP 138/82
[2019-04-27] MEDS ORDERED: diphenhydrAMINE INJ 50MG/ML VIAL (J1200) IV PRN (08:15)
[2019-04-27] MEDS ORDERED: ACETAMINOPHEN TAB 650MG DOSE (2X325MG) PO ONE (09:00)
[2019-04-27] MEDS ORDERED: NS IV ONE (09:00)
[2019-04-27] MEDS ORDERED: ALBUTEROL SULFATE 2.5 MG/0.5 ML INH NEB SOLN INH PRN (09:00)
[2019-04-27] MEDS ORDERED: EPINEPHrine INJ 1 MG/ML 1ML AMP IM PRN (09:00)
[2019-04-27] MEDS ORDERED: TOCILIZUMAB IV ONE (09:00)
[2019-04-27] MEDS ORDERED: NS 1,000 ML IV SCH (09:00)
[2019-04-27] MEDS ORDERED: methylPREDNISolone INJ 125 MG/2 ML VIAL (J2930) IV PRN (09:00)
[2019-04-27 09:45] VITALS: BP 124/68
== END 2019-04-27 10:00 | disposition home or self-care (01) ==
LOC: M INFU 08:02
PROVIDERS: ATTEND Internal Medicine Rheumatology
DX: M06.9 Rheumatoid arthritis, unspecified (principal)
CPT/HCPCS: 96365; J3262

== ENCOUNTER → 2019-05-12 | Outpatient (CLI) | payer BC ==
[2019-05-12 17:15] LABS: ALBUMIN 3.7 GM/DL (3.2-5.2); ALT/SGPT 30 U/L (12-78); BILIRUBIN,DIRECT 0.1 MG/DL (0.0-0.2); BILIRUBIN,TOTAL 0.3 MG/DL (0.2-1.0); TOTAL PROTEIN 6.5 GM/DL (6.4-8.2)
[2019-05-15 08:35] LABS: HEPATITIS B SURFACE ANTIBODY POSITIVE (POSITIVE)
[2019-05-15 08:46] LABS: HEPATITIS B SURFACE ANTIGEN NEGATIVE (NEGATIVE)
[2019-05-16 00:06] LABS: HBV HBV DNA not detected IU/mL (.); HEPATITIS B CORE ANTIBODY IGG Negative (Negative); HEPATITIS BE ANTIBODY Negative (Negative); HEPATITIS BE ANTIGEN Negative (Negative)
== END ==
LOC: M WUC 13:52
PROVIDERS: ATTEND Internal Medicine Gastroenterology
DX: B19.10 Unspecified viral hepatitis B without hepatic coma (principal)

== ENCOUNTER → 2019-05-12 | Outpatient (CLI) | payer BC ==
[2019-05-12 17:10] LABS: BASO % 0.9 % (0.0-1.0); EOS # 0.6 10^3/uL (0.0-0.50); EOS % 14.1 % (0.0-3.0); HEMOGLOBIN 12.8 g/dl (12.0-15.5); LYMPH # 1.4 10^3/uL (1.5-4.5); LYMPH % 32.2 % (24.0-44.0); MEAN CORPUSCULAR HEMOGLOBIN 33.3 pg (27.0-33.0); MEAN CORPUSCULAR HGB CONC 33.7 g/dl (32.0-36.5); MONO # 0.5 10^3/uL (0.0-0.8); MONO % 11.1 % (0.0-5.0); NEUTROPHILS # 1.8 10^3/uL (1.8-7.7); NEUTROPHILS % 41.5 % (36.0-66.0); PLATELET COUNT, AUTOMATED 183 10^3/uL (150-450); RED BLOOD COUNT 3.84 10^6/uL (4.00-5.40); WHITE BLOOD COUNT 4.4 10^3/uL (4.0-10.0)
[2019-05-12 17:16] LABS: ALBUMIN 3.4 GM/DL (3.2-5.2); BILIRUBIN,TOTAL 0.3 MG/DL (0.2-1.0); C REACTIVE PROTEIN QUANTITATIV 0.3 MG/DL (0.00-0.30); CALCIUM LEVEL 8.8 MG/DL (8.5-10.1); CREATININE FOR GFR 1.03 MG/DL (0.55-1.30); GLOMERULAR FILTRATION RATE 59.9 (>51); POTASSIUM SERUM 4.2 MEQ/L (3.5-5.1); TOTAL PROTEIN 6.4 GM/DL (6.4-8.2); URIC ACID 2.2 MG/DL (2.6-6.0)
[2019-05-12 18:56] LABS: ERYTHROCYTE SEDIMENTATION RATE 9 mm/hr (0-30)
== END ==
LOC: M WUC 13:55
PROVIDERS: ATTEND Internal Medicine Rheumatology
DX: M25.462 Effusion, left knee (principal); M06.9 Rheumatoid arthritis, unspecified

== ENCOUNTER 2019-05-25 07:57 | Outpatient (CLI) | payer BC ==
[~2019-05-25] VITALS: Ht 165.1 cm; Wt 90.0 kg
[~2019-05-25 07:57] MED LIST changes: -SIMV20TA2 PO; +SIMV20TA22 PO
[2019-05-25 08:08] VITALS: BP 162/72
[2019-05-25] MEDS ORDERED: ACETAMINOPHEN TAB 650MG DOSE (2X325MG) PO ONE (08:30)
[2019-05-25] MEDS ORDERED: NS 1,000 ML IV SCH (08:30)
[2019-05-25] MEDS ORDERED: ALBUTEROL SULFATE 2.5 MG/0.5 ML INH NEB SOLN INH PRN (08:30)
[2019-05-25] MEDS ORDERED: methylPREDNISolone INJ 125 MG/2 ML VIAL (J2930) IV PRN (08:30)
[2019-05-25] MEDS ORDERED: EPINEPHrine INJ 1 MG/ML 1ML VIAL IM PRN (08:30)
[2019-05-25] MEDS ORDERED: diphenhydrAMINE INJ 50MG/ML VIAL (J1200) IV PRN (08:30)
[2019-05-25] MEDS ORDERED: TOCILIZUMAB IV ONE (09:00)
[2019-05-25] MEDS ORDERED: NS IV ONE (09:00)
[2019-05-25 10:19] VITALS: BP 140/67
== END 2019-05-25 10:20 | disposition home or self-care (01) ==
LOC: M INFU 07:57
PROVIDERS: ATTEND Internal Medicine Rheumatology
DX: M06.9 Rheumatoid arthritis, unspecified (principal)
CPT/HCPCS: 96365; J3262

== ENCOUNTER 2019-06-22 07:56 | Outpatient (CLI) | payer BC ==
[~2019-06-22] VITALS: Ht 165.1 cm; Wt 93.0 kg
[~2019-06-22 07:56] MED LIST changes: +SIMV20TA2 PO; -SIMV20TA22 PO
[2019-06-22 08:00] VITALS: BP 153/68
[2019-06-22] MEDS ORDERED: ALBUTEROL SULFATE 2.5 MG/0.5 ML INH NEB SOLN INH PRN (09:00)
[2019-06-22] MEDS ORDERED: ACETAMINOPHEN 650MG ER TAB (TYLENOL ARTHRITIS) PO ONE (09:00)
[2019-06-22] MEDS ORDERED: methylPREDNISolone INJ 125 MG/2 ML VIAL (J2930) IV PRN (09:00)
[2019-06-22] MEDS ORDERED: TOCILIZUMAB IV ONE (09:00)
[2019-06-22] MEDS ORDERED: EPINEPHrine INJ 1 MG/ML 1ML AMP IM PRN (09:00)
[2019-06-22] MEDS ORDERED: NS IV ONE (09:00)
[2019-06-22] MEDS ORDERED: diphenhydrAMINE INJ 50MG/ML VIAL (J1200) IV PRN (09:00)
[2019-06-22] MEDS ORDERED: NS 1,000 ML IV SCH (09:00)
[2019-06-22 10:00] VITALS: BP 114/71
== END 2019-06-22 10:00 | disposition home or self-care (01) ==
LOC: M INFU 07:56
PROVIDERS: ATTEND Internal Medicine Rheumatology
DX: M06.9 Rheumatoid arthritis, unspecified (principal); Z88.0 Allergy status to penicillin; Z88.8 Allergy status to other drugs, medicaments and biological substances
CPT/HCPCS: 96365; J3262

== ENCOUNTER 2019-07-20 09:52 | Outpatient (CLI) | payer BC ==
[~2019-07-20] VITALS: Ht 165.1 cm; Wt 93.0 kg
[2019-07-20 09:55] VITALS: BP 143/81
[2019-07-20] MEDS ORDERED: ACETAMINOPHEN 650MG ER TAB (TYLENOL ARTHRITIS) PO ONE (10:30)
[2019-07-20] MEDS ORDERED: NS 1,000 ML IV SCH (10:30)
[2019-07-20] MEDS ORDERED: EPINEPHrine INJ 1 MG/ML 1ML AMP IM PRN (10:45)
[2019-07-20] MEDS ORDERED: diphenhydrAMINE INJ 50MG/ML VIAL (J1200) IV PRN (10:45)
[2019-07-20] MEDS ORDERED: methylPREDNISolone INJ 125 MG/2 ML VIAL (J2930) IV PRN (10:45)
[2019-07-20] MEDS ORDERED: NS IV ONE (11:00)
[2019-07-20] MEDS ORDERED: TOCILIZUMAB IV ONE (11:00)
[2019-07-20] MEDS ORDERED: ALBUTEROL SULFATE 2.5 MG/0.5 ML INH NEB SOLN INH PRN (11:10)
[2019-07-20 12:10] VITALS: BP 142/76
== END 2019-07-20 12:15 | disposition home or self-care (01) ==
LOC: M INFU 09:52
PROVIDERS: ATTEND Internal Medicine Rheumatology
DX: M06.9 Rheumatoid arthritis, unspecified (principal); Z88.0 Allergy status to penicillin; Z88.8 Allergy status to other drugs, medicaments and biological substances
CPT/HCPCS: 96365; J3262

== ENCOUNTER 2019-08-17 07:55 | Outpatient (CLI) | payer BC ==
[~2019-08-17] VITALS: Ht 165.1 cm; Wt 93.0 kg
[~2019-08-17 07:55] MED LIST changes: -SIMV20TA2 PO; +SIMV20TA22 PO
[2019-08-17 08:00] VITALS: BP 167/83
[2019-08-17] MEDS ORDERED: ALBUTEROL SULFATE 2.5 MG/0.5 ML INH NEB SOLN INH PRN (09:00)
[2019-08-17] MEDS ORDERED: [UNRECOGNIZED DRUG - OTHER] IV ONE (09:00)
[2019-08-17] MEDS ORDERED: diphenhydrAMINE INJ 50MG/ML VIAL (J1200) IV PRN (09:00)
[2019-08-17] MEDS ORDERED: methylPREDNISolone INJ 125 MG/2 ML VIAL (J2930) IV PRN (09:00)
[2019-08-17] MEDS ORDERED: EPINEPHrine INJ 1 MG/ML 1ML VIAL IM PRN (09:00)
[2019-08-17] MEDS ORDERED: ACETAMINOPHEN 650MG ER TAB (TYLENOL ARTHRITIS) PO ONE (09:00)
[2019-08-17] MEDS ORDERED: NS 1,000 ML IV SCH (09:00)
[2019-08-17 10:10] VITALS: BP 123/59
== END 2019-08-17 10:10 | disposition home or self-care (01) ==
LOC: M INFU 07:55
PROVIDERS: ATTEND Internal Medicine Rheumatology
DX: M06.9 Rheumatoid arthritis, unspecified (principal)
CPT/HCPCS: 96365; J3262

== ENCOUNTER → 2019-08-23 | Outpatient (CLI) | payer BC ==
[~2019-08-23] MED LIST changes: +SIMV20TA2 PO; -SIMV20TA22 PO
[2019-08-23 09:46] LABS: BASO # 0.1 10^3/uL (0.0-0.2); BASO % 1.5 % (0.0-1.0); EOS # 0.7 10^3/uL (0.0-0.5); EOS % 17.1 % (0.0-3.0); HEMATOCRIT 40.3 % (36.0-47.0); HEMOGLOBIN 13.3 g/dl (12.0-15.5); LYMPH # 1.3 10^3/uL (1.5-5.0); LYMPH % 31.9 % (24.0-44.0); MEAN CORPUSCULAR VOLUME 103.1 fl (80.0-96.0); MONO # 0.5 10^3/uL (0.0-0.8); MONO % 11.5 % (0.0-5.0); NEUTROPHILS # 1.5 10^3/uL (1.5-8.5); NEUTROPHILS % 37.7 % (36.0-66.0); PLATELET COUNT, AUTOMATED 191 10^3/uL (150-450); RED BLOOD COUNT 3.91 10^6/uL (4.00-5.40); WHITE BLOOD COUNT 3.9 10^3/uL (4.0-10.0)
[2019-08-23 10:08] LABS: ERYTHROCYTE SEDIMENTATION RATE 5 mm/hr (0-30)
[2019-08-23 10:19] LABS: ALBUMIN 3.5 GM/DL (3.2-5.2); ALT/SGPT 27 U/L (12-78); BILIRUBIN,TOTAL 0.3 MG/DL (0.2-1.0); BLOOD UREA NITROGEN 22 MG/DL (7-18); C REACTIVE PROTEIN QUANTITATIV < 0.30 MG/DL (0.00-0.30); CALCIUM LEVEL 9.2 MG/DL (8.5-10.1); CARBON DIOXIDE LEVEL 31 MEQ/L (21-32); CHLORIDE LEVEL 101 MEQ/L (98-107); CREATININE FOR GFR 0.97 MG/DL (0.55-1.30); GLOMERULAR FILTRATION RATE > 60.0 (>51); GLUCOSE, FASTING 101 MG/DL (70-100); POTASSIUM SERUM 4.7 MEQ/L (3.5-5.1); SODIUM LEVEL 138 MEQ/L (136-145); TOTAL PROTEIN 6.6 GM/DL (6.4-8.2)
== END ==
LOC: M LAB 08:37
PROVIDERS: ATTEND Internal Medicine Rheumatology
DX: M06.9 Rheumatoid arthritis, unspecified (principal)

== ENCOUNTER → 2019-09-05 | Outpatient (CLI) | payer BC ==
[2019-09-05 20:59] LABS: BASO # 0.1 10^3/uL (0.0-0.2); BASO % 0.9 % (0.0-1.0); EOS % 17.1 % (0.0-3.0); HEMATOCRIT 39.7 % (36.0-47.0); HEMOGLOBIN 13.3 g/dl (12.0-15.5); LYMPH # 1.9 10^3/uL (1.5-5.0); LYMPH % 34.7 % (24.0-44.0); MEAN CORPUSCULAR HEMOGLOBIN 34.3 pg (27.0-33.0); MEAN CORPUSCULAR HGB CONC 33.5 g/dl (32.0-36.5); MEAN CORPUSCULAR VOLUME 102.3 fl (80.0-96.0); MONO # 0.6 10^3/uL (0.0-0.8); MONO % 11.3 % (0.0-5.0); NEUTROPHILS % 35.8 % (36.0-66.0); PLATELET COUNT, AUTOMATED 198 10^3/uL (150-450); RED BLOOD COUNT 3.88 10^6/uL (4.00-5.40); WHITE BLOOD COUNT 5.6 10^3/uL (4.0-10.0)
[2019-09-05 21:49] LABS: ALBUMIN 3.6 GM/DL (3.2-5.2); BILIRUBIN,TOTAL 0.4 MG/DL (0.2-1.0); CALCIUM LEVEL 9.5 MG/DL (8.5-10.1); CREATININE FOR GFR 1.1 MG/DL (0.55-1.30); GLOMERULAR FILTRATION RATE 55.5 (>51); POTASSIUM SERUM 3.7 MEQ/L (3.5-5.1); TOTAL PROTEIN 6.6 GM/DL (6.4-8.2)
== END ==
LOC: M WUC 15:28
PROVIDERS: ATTEND Nurse Practitioner Family
DX: D83.9 Common variable immunodeficiency, unspecified (principal)

== ENCOUNTER 2019-09-14 07:47 | Outpatient (CLI) | payer BC ==
[~2019-09-14] VITALS: Ht 165.1 cm; Wt 93.0 kg
[2019-09-14 08:06] VITALS: BP 146/80
[2019-09-14] MEDS ORDERED: diphenhydrAMINE INJ 50MG/ML VIAL (J1200) IV PRN (08:15)
[2019-09-14] MEDS ORDERED: ALBUTEROL SULFATE 2.5 MG/0.5 ML INH NEB SOLN INH PRN (08:15)
[2019-09-14] MEDS ORDERED: NS 1,000 ML IV SCH (08:15)
[2019-09-14] MEDS ORDERED: methylPREDNISolone INJ 125 MG/2 ML VIAL (J2930) IV PRN (08:15)
[2019-09-14] MEDS ORDERED: EPINEPHrine INJ 1 MG/ML 1ML AMP IM PRN (08:15)
[2019-09-14] MEDS ORDERED: ACETAMINOPHEN 650MG ER TAB (TYLENOL ARTHRITIS) PO ONE (08:30)
[2019-09-14] MEDS ORDERED: NS IV ONE (09:00)
[2019-09-14] MEDS ORDERED: TOCILIZUMAB IV ONE (09:00)
[2019-09-14 10:30] VITALS: BP 122/63
== END 2019-09-14 10:30 | disposition home or self-care (01) ==
LOC: M INFU 07:47
PROVIDERS: ATTEND Internal Medicine Rheumatology
DX: M06.9 Rheumatoid arthritis, unspecified (principal); E11.9 Type 2 diabetes mellitus without complications; E03.9 Hypothyroidism, unspecified; E87.5 Hyperkalemia; Z88.0 Allergy status to penicillin; Z88.8 Allergy status to other drugs, medicaments and biological substances
CPT/HCPCS: 96365; J3262

== ENCOUNTER 2019-10-12 08:24 | Outpatient (CLI) | payer BC ==
[~2019-10-12] VITALS: Ht 167.6 cm; Wt 93.0 kg
[2019-10-12 08:38] VITALS: BP 119/69
[2019-10-12] MEDS ORDERED: diphenhydrAMINE INJ 50MG/ML VIAL (J1200) IV PRN (08:45)
[2019-10-12] MEDS ORDERED: NS 1,000 ML IV SCH (08:45)
[2019-10-12] MEDS ORDERED: ALBUTEROL SULFATE 2.5 MG/0.5 ML INH NEB SOLN INH PRN (08:45)
[2019-10-12] MEDS ORDERED: methylPREDNISolone INJ 125 MG/2 ML VIAL (J2930) IV PRN (08:45)
[2019-10-12] MEDS ORDERED: EPINEPHrine INJ 1 MG/ML 1ML AMP IM PRN (08:45)
[2019-10-12] MEDS ORDERED: ACETAMINOPHEN 650MG ER TAB (TYLENOL ARTHRITIS) PO ONE (08:45)
[2019-10-12] MEDS ORDERED: NS IV ONE (09:00)
[2019-10-12] MEDS ORDERED: TOCILIZUMAB IV ONE (09:00)
[2019-10-12 10:15] VITALS: BP 109/60
== END 2019-10-12 10:15 | disposition home or self-care (01) ==
LOC: M INFU 08:24
PROVIDERS: ATTEND Internal Medicine Rheumatology
DX: M06.9 Rheumatoid arthritis, unspecified (principal); Z88.0 Allergy status to penicillin; Z88.8 Allergy status to other drugs, medicaments and biological substances
CPT/HCPCS: 96365; J3262

== ENCOUNTER 2019-11-09 08:16 | Outpatient (CLI) | payer BC ==
[~2019-11-09] VITALS: Ht 165.1 cm; Wt 93.0 kg
[~2019-11-09 08:16] MED LIST changes: -SIMV20TA2 PO; +SIMV20TA22 PO
[2019-11-09 08:20] VITALS: BP 129/76
[2019-11-09] MEDS ORDERED: NS 1,000 ML IV SCH (09:00)
[2019-11-09] MEDS ORDERED: ALBUTEROL SULFATE 2.5 MG/0.5 ML INH NEB SOLN INH PRN (09:00)
[2019-11-09] MEDS ORDERED: EPINEPHrine INJ 1 MG/ML 1ML VIAL IM PRN (09:00)
[2019-11-09] MEDS ORDERED: NS IV ONE (09:00)
[2019-11-09] MEDS ORDERED: diphenhydrAMINE INJ 50MG/ML VIAL (J1200) IV PRN (09:00)
[2019-11-09] MEDS ORDERED: TOCILIZUMAB IV ONE (09:00)
[2019-11-09] MEDS ORDERED: ACETAMINOPHEN 650MG ER TAB (TYLENOL ARTHRITIS) PO ONE (09:00)
[2019-11-09] MEDS ORDERED: methylPREDNISolone INJ 125 MG/2 ML VIAL (J2930) IV PRN (09:00)
[2019-11-09 10:00] VITALS: BP 130/68
== END 2019-11-09 10:00 | disposition home or self-care (01) ==
LOC: M INFU 08:16
PROVIDERS: ATTEND Internal Medicine Rheumatology
DX: M06.9 Rheumatoid arthritis, unspecified (principal); E10.9 Type 1 diabetes mellitus without complications; F41.9 Anxiety disorder, unspecified; Z88.0 Allergy status to penicillin; Z88.3 Allergy status to other anti-infective agents

== ENCOUNTER 2019-12-07 08:24 | Outpatient (CLI) | payer BC ==
[~2019-12-07] VITALS: Ht 165.1 cm; Wt 93.0 kg
[2019-12-07 08:25] VITALS: BP 148/73
[2019-12-07] MEDS ORDERED: diphenhydrAMINE INJ 50MG/ML VIAL (J1200) IV PRN (09:00)
[2019-12-07] MEDS ORDERED: ALBUTEROL SULFATE 2.5 MG/0.5 ML INH NEB SOLN INH PRN (09:00)
[2019-12-07] MEDS ORDERED: NS 1,000 ML IV SCH (09:00)
[2019-12-07] MEDS ORDERED: EPINEPHrine INJ 1 MG/ML 1ML VIAL IM PRN (09:00)
[2019-12-07] MEDS ORDERED: methylPREDNISolone INJ 125 MG/2 ML VIAL (J2930) IV PRN (09:00)
[2019-12-07] MEDS ORDERED: ACETAMINOPHEN 650MG ER TAB (TYLENOL ARTHRITIS) PO ONE (09:30)
[2019-12-07] MEDS ORDERED: TOCILIZUMAB IV ONE (10:00)
[2019-12-07] MEDS ORDERED: NS IV ONE (10:00)
[2019-12-07 11:25] VITALS: BP 106/66
== END 2019-12-07 11:25 | disposition home or self-care (01) ==
LOC: M INFU 08:24
PROVIDERS: ATTEND Internal Medicine Rheumatology
DX: R06.9 Unspecified abnormalities of breathing (principal); Z88.0 Allergy status to penicillin; Z88.8 Allergy status to other drugs, medicaments and biological substances

== ENCOUNTER → 2019-12-08 | Outpatient (REF) | payer BC ==
[2019-12-08 13:55] LABS: BASO # 0.1 10^3/uL (0.0-0.2); BASO % 1.2 % (0.0-1.0); EOS # 0.3 10^3/uL (0.0-0.5); EOS % 6.8 % (0.0-3.0); HEMATOCRIT 39.1 % (36.0-47.0); HEMOGLOBIN 13.3 g/dl (12.0-15.5); LYMPH # 0.9 10^3/uL (1.5-5.0); LYMPH % 21.8 % (24.0-44.0); MEAN CORPUSCULAR HEMOGLOBIN 33.3 pg (27.0-33.0); MONO # 0.5 10^3/uL (0.0-0.8); MONO % 12.8 % (0.0-5.0); NEUTROPHILS # 2.4 10^3/uL (1.5-8.5); NEUTROPHILS % 57.2 % (36.0-66.0); PLATELET COUNT, AUTOMATED 170 10^3/uL (150-450); RED BLOOD COUNT 3.99 10^6/uL (4.00-5.40); WHITE BLOOD COUNT 4.1 10^3/uL (4.0-10.0)
[2019-12-08 14:11] LABS: ALBUMIN 3.8 GM/DL (3.2-5.2); ALT/SGPT 24 U/L (12-78); BILIRUBIN,TOTAL 0.3 MG/DL (0.2-1.0); BLOOD UREA NITROGEN 18 MG/DL (7-18); CALCIUM LEVEL 9.3 MG/DL (8.5-10.1); CARBON DIOXIDE LEVEL 23 MEQ/L (21-32); CHLORIDE LEVEL 101 MEQ/L (98-107); CREATININE FOR GFR 1.04 MG/DL (0.55-1.30); GLUCOSE, FASTING 371 MG/DL (70-100); POTASSIUM SERUM 4.5 MEQ/L (3.5-5.1); RHEUMATOID FACTOR QUANT < 10.0 IU/ML (<15.0); SODIUM LEVEL 135 MEQ/L (136-145)
[2019-12-08 14:19] LABS: ERYTHROCYTE SEDIMENTATION RATE 8 mm/hr (0-30)
[2019-12-11 14:07] LABS: CYCLIC CITRULLINATED PEPTIDE 57 units (0-19); HBV HBV DNA not detected IU/mL (.)
== END ==
LOC: M SFHCRHEU 09:10
PROVIDERS: ATTEND Internal Medicine
DX: M06.09 Rheumatoid arthritis without rheumatoid factor, multiple sites (principal); Z79.899 Other long term (current) drug therapy; R76.8 Other specified abnormal immunological findings in serum

== ENCOUNTER 2020-01-04 08:18 | Outpatient (CLI) | payer BC ==
[~2020-01-04] VITALS: Ht 165.1 cm; Wt 91.1 kg
[~2020-01-04 08:18] MED LIST changes: -MONT10TA2 PO; +MONT10TA4 PO
[2020-01-04 08:20] VITALS: BP 168/82
[2020-01-04] MEDS ORDERED: SULF500T2 PO (08:39)
[2020-01-04] MEDS ORDERED: diphenhydrAMINE INJ 50MG/ML VIAL (J1200) IV PRN (09:00)
[2020-01-04] MEDS ORDERED: methylPREDNISolone INJ 125 MG/2 ML VIAL (J2930) IV PRN (09:00)
[2020-01-04] MEDS ORDERED: ALBUTEROL SULFATE 2.5 MG/0.5 ML INH NEB SOLN INH PRN (09:00)
[2020-01-04] MEDS ORDERED: EPINEPHrine INJ 1 MG/ML 1ML VIAL IM PRN (09:00)
[2020-01-04] MEDS ORDERED: NS 1,000 ML IV SCH (09:00)
[2020-01-04] MEDS ORDERED: ACETAMINOPHEN 650MG ER TAB (TYLENOL ARTHRITIS) PO ONE (09:00)
[2020-01-04] MEDS ORDERED: TOCILIZUMAB IV ONE (09:30)
[2020-01-04] MEDS ORDERED: NS IV ONE (09:30)
[2020-01-04 10:50] VITALS: BP 113/55
== END 2020-01-04 10:50 | disposition home or self-care (01) ==
LOC: M INFU 08:18
PROVIDERS: ATTEND Internal Medicine
DX: M06.9 Rheumatoid arthritis, unspecified (principal); Z88.0 Allergy status to penicillin

== ENCOUNTER → 2020-01-23 | Outpatient (CLI) | payer BC ==
[~2020-01-23] MED LIST changes: +SULF500T2 PO
[2020-01-23 17:10] LABS: BASO # 0.1 10^3/uL (0.0-0.2); BASO % 1.6 % (0.0-1.0); EOS # 0.6 10^3/uL (0.0-0.5); EOS % 13.2 % (0.0-3.0); HEMATOCRIT 37.5 % (36.0-47.0); HEMOGLOBIN 12.4 g/dl (12.0-15.5); LYMPH # 1.5 10^3/uL (1.5-5.0); LYMPH % 32.6 % (24.0-44.0); MEAN CORPUSCULAR HEMOGLOBIN 34.6 pg (27.0-33.0); MEAN CORPUSCULAR HGB CONC 33.1 g/dl (32.0-36.5); MEAN CORPUSCULAR VOLUME 104.7 fl (80.0-96.0); MONO # 0.6 10^3/uL (0.0-0.8); MONO % 13.2 % (0.0-5.0); NEUTROPHILS # 1.8 10^3/uL (1.5-8.5); NEUTROPHILS % 39.2 % (36.0-66.0); PLATELET COUNT, AUTOMATED 174 10^3/uL (150-450); RED BLOOD COUNT 3.58 10^6/uL (4.00-5.40); WHITE BLOOD COUNT 4.5 10^3/uL (4.0-10.0)
[2020-01-23 17:18] LABS: ALBUMIN 3.5 GM/DL (3.2-5.2); ALT/SGPT 33 U/L (12-78); BILIRUBIN,TOTAL 0.3 MG/DL (0.2-1.0); BLOOD UREA NITROGEN 14 MG/DL (7-18); CALCIUM LEVEL 8.4 MG/DL (8.5-10.1); CARBON DIOXIDE LEVEL 30 MEQ/L (21-32); CHLORIDE LEVEL 101 MEQ/L (98-107); CREATININE FOR GFR 0.86 MG/DL (0.55-1.30); GLOMERULAR FILTRATION RATE > 60.0 (>51); GLUCOSE, FASTING 321 MG/DL (70-100); POTASSIUM SERUM 4.4 MEQ/L (3.5-5.1); SODIUM LEVEL 136 MEQ/L (136-145); TOTAL PROTEIN 6.5 GM/DL (6.4-8.2)
== END ==
LOC: M WUC 14:06
PROVIDERS: ATTEND Internal Medicine
DX: M06.09 Rheumatoid arthritis without rheumatoid factor, multiple sites (principal); Z79.899 Other long term (current) drug therapy

== ENCOUNTER → 2020-01-23 | Outpatient (CLI) | payer BC ==
[2020-01-23 17:15] LABS: APPEARANCE, URINE CLEAR (CLEAR); BACTERIA, URINE AUTO NEGATIVE (NEGATIVE); BILIRUBIN, URINE AUTO NEGATIVE (NEGATIVE); BLOOD, URINE BLOOD NEGATIVE (NEGATIVE); COLOR, URINE YELLOW (YELLOW); GLUCOSE, URINE (UA) AUTO 3+ mg/dL (NEGATIVE); KETONE, URINE AUTO NEGATIVE (NEGATIVE); LEUKOCYTE ESTERASE, URINE AUTO NEGATIVE (NEGATIVE); NITRITE, URINE AUTO NEGATIVE (NEGATIVE); PROTEIN, URINE AUTO NEGATIVE (NEGATIVE); RBC, URINE AUTO 0 /HPF (0-3); SPECIFIC GRAVITY URINE AUTO 1.024 (1.002-1.035); SQUAMOUS EPITHELIAL CELL UR AU 0 /HPF (0-6); UROBILINOGEN, URINE AUTO 0.2 mg/dL (0.0-2.0); WBC, URINE AUTO 0 /HPF (0-3)
[2020-01-23 17:32] LABS: CHOLESTEROL RISK RATIO 2.211 (<5); FREE T4 1.4 NG/DL (0.76-1.46); THYROID STIMULATING HORMONE 0.93 uIU/ML (0.358-3.740)
== END ==
LOC: M WUC 14:10
PROVIDERS: ATTEND Internal Medicine Endocrinology, Diabetes & Metabolism
DX: M85.851 Other specified disorders of bone density and structure, right thigh (principal); E10.65 Type 1 diabetes mellitus with hyperglycemia; E03.8 Other specified hypothyroidism; E06.3 Autoimmune thyroiditis; E78.5 Hyperlipidemia, unspecified; Z96.41 Presence of insulin pump (external) (internal); Z79.4 Long term (current) use of insulin

== ENCOUNTER → 2020-01-23 | Outpatient (CLI) | payer BC | LOC: M WUC 14:01 | PROVIDERS: ATTEND Nurse Practitioner Family | DX: D83.9 Common variable immunodeficiency, unspecified (principal) ==

== ENCOUNTER 2020-02-01 07:49 | Outpatient (CLI) | payer BC ==
[~2020-02-01] VITALS: Ht 165.1 cm; Wt 91.1 kg
[2020-02-01] MEDS ORDERED: ALBUTEROL SULFATE 2.5 MG/0.5 ML INH NEB SOLN INH PRN (08:00)
[2020-02-01] MEDS ORDERED: diphenhydrAMINE INJ 50MG/ML VIAL (J1200) IV PRN (08:00)
[2020-02-01] MEDS ORDERED: ACETAMINOPHEN TAB 650MG DOSE (2X325MG) PO ONE (08:00)
[2020-02-01] MEDS ORDERED: methylPREDNISolone INJ 125 MG/2 ML VIAL (J2930) IV PRN (08:00)
[2020-02-01] MEDS ORDERED: NS 1,000 ML IV SCH (08:00)
[2020-02-01] MEDS ORDERED: EPINEPHrine INJ 1 MG/ML 1ML VIAL IM PRN (08:00)
[2020-02-01] MEDS ORDERED: TOCILIZUMAB IV ONE (08:30)
[2020-02-01] MEDS ORDERED: NS IV ONE (08:30)
[2020-02-01 08:35] VITALS: BP 115/69
[2020-02-01 09:45] VITALS: BP 105/56
== END 2020-02-05 09:45 | disposition home or self-care (01) ==
LOC: M INFU 07:49
PROVIDERS: ATTEND Internal Medicine
DX: M06.9 Rheumatoid arthritis, unspecified (principal); Z88.0 Allergy status to penicillin; Z88.8 Allergy status to other drugs, medicaments and biological substances

== ENCOUNTER → 2020-02-12 | Outpatient (CLI) | payer BC ==
[2020-02-12 16:20] LABS: BASO # 0.1 10^3/uL (0.0-0.2); BASO % 1.5 % (0.0-1.0); EOS # 0.7 10^3/uL (0.0-0.5); HEMATOCRIT 37.9 % (36.0-47.0); HEMOGLOBIN 12.8 g/dl (12.0-15.5); LYMPH # 1.6 10^3/uL (1.5-5.0); LYMPH % 40.3 % (24.0-44.0); MEAN CORPUSCULAR HEMOGLOBIN 35.4 pg (27.0-33.0); MEAN CORPUSCULAR HGB CONC 33.8 g/dl (32.0-36.5); MEAN CORPUSCULAR VOLUME 104.7 fl (80.0-96.0); MONO # 0.5 10^3/uL (0.0-0.8); MONO % 13.3 % (0.0-5.0); NEUTROPHILS # 1.1 10^3/uL (1.5-8.5); NEUTROPHILS % 27.9 % (36.0-66.0); PLATELET COUNT, AUTOMATED 203 10^3/uL (150-450); RED BLOOD COUNT 3.62 10^6/uL (4.00-5.40); WHITE BLOOD COUNT 4.1 10^3/uL (4.0-10.0)
[2020-02-12 16:30] LABS: ALBUMIN 3.7 GM/DL (3.2-5.2); ALT/SGPT 23 U/L (12-78); BILIRUBIN,TOTAL 0.3 MG/DL (0.2-1.0); BLOOD UREA NITROGEN 19 MG/DL (7-18); C REACTIVE PROTEIN QUANTITATIV < 0.30 MG/DL (0.00-0.30); CALCIUM LEVEL 9.3 MG/DL (8.5-10.1); CARBON DIOXIDE LEVEL 31 MEQ/L (21-32); CHLORIDE LEVEL 103 MEQ/L (98-107); CREATININE FOR GFR 0.95 MG/DL (0.55-1.30); GLOMERULAR FILTRATION RATE > 60.0 (>51); GLUCOSE, FASTING 60 MG/DL (70-100); POTASSIUM SERUM 4.1 MEQ/L (3.5-5.1); SODIUM LEVEL 139 MEQ/L (136-145); TOTAL PROTEIN 6.9 GM/DL (6.4-8.2)
[2020-02-12 16:56] LABS: ERYTHROCYTE SEDIMENTATION RATE 5 mm/hr (0-30)
== END ==
LOC: M WUC 14:40
PROVIDERS: ATTEND Internal Medicine
DX: M06.09 Rheumatoid arthritis without rheumatoid factor, multiple sites (principal); Z79.899 Other long term (current) drug therapy

== ENCOUNTER 2020-02-29 07:47 | Outpatient (CLI) | payer BC ==
[~2020-02-29] VITALS: Ht 165.1 cm; Wt 91.1 kg
[2020-02-29] MEDS ORDERED: ACETAMINOPHEN 650MG ER TAB (TYLENOL ARTHRITIS) PO ONE (08:00)
[2020-02-29 08:08] VITALS: BP 144/64
[2020-02-29] MEDS ORDERED: [UNRECOGNIZED DRUG - OTHER] IV ONE (09:00)
[2020-02-29] MEDS ORDERED: NS 1,000 ML IV SCH (09:00)
[2020-02-29] MEDS ORDERED: diphenhydrAMINE INJ 50MG/ML VIAL (J1200) IV PRN (09:00)
[2020-02-29] MEDS ORDERED: ALBUTEROL SULFATE 2.5 MG/0.5 ML INH NEB SOLN INH PRN (09:00)
[2020-02-29] MEDS ORDERED: EPINEPHrine INJ 1 MG/ML 1ML VIAL IM PRN (09:00)
[2020-02-29] MEDS ORDERED: methylPREDNISolone INJ 125 MG/2 ML VIAL (J2930) IV PRN (09:00)
[2020-02-29 09:30] VITALS: BP 109/69
== END 2020-02-29 11:50 | disposition home or self-care (01) ==
LOC: M INFU 07:47
PROVIDERS: ATTEND Internal Medicine
DX: M06.9 Rheumatoid arthritis, unspecified (principal); Z88.0 Allergy status to penicillin

== ENCOUNTER 2020-03-28 07:55 | Outpatient (CLI) | payer BC ==
[~2020-03-28] VITALS: Ht 165.7 cm; Wt 91.1 kg
[2020-03-28 08:00] VITALS: BP 144/73
[2020-03-28] MEDS ORDERED: ACETAMINOPHEN 650MG ER TAB (TYLENOL ARTHRITIS) PO ONE (08:15)
[2020-03-28] MEDS ORDERED: NS 1,000 ML IV SCH (08:30)
[2020-03-28] MEDS ORDERED: methylPREDNISolone INJ 125 MG/2 ML VIAL (J2930) IV PRN (08:30)
[2020-03-28] MEDS ORDERED: diphenhydrAMINE 50MG/ML VIAL (J1200) IV PRN (08:30)
[2020-03-28] MEDS ORDERED: TOCILIZUMAB IV ONE (08:30)
[2020-03-28] MEDS ORDERED: EPINEPHrine INJ 1 MG/ML 1ML AMP IM PRN (08:30)
[2020-03-28] MEDS ORDERED: NS IV ONE (08:30)
[2020-03-28] MEDS ORDERED: ALBUTEROL SULFATE 2.5 MG/0.5 ML INH NEB SOLN INH PRN (08:30)
[2020-03-28 09:30] VITALS: BP_SYST 123; BP_SYST 144; BP_DIAS 61; BP_DIAS 73
== END 2020-03-28 09:30 | disposition home or self-care (01) ==
LOC: M INFU 07:55
PROVIDERS: ATTEND Internal Medicine
DX: M06.9 Rheumatoid arthritis, unspecified (principal); Z88.0 Allergy status to penicillin

== ENCOUNTER → 2020-04-16 | Outpatient (CLI) | payer BC ==
--- NOTE | 2020-04-16 10:41 | REPMRS ---
Patient History The patient states she had a clinical breast exam in March 2020. No known family history of cancer. Took hormonal contraceptives for 7 years. Digital Woman Screen Mammo: April 16, 2020 - Exam #: [id number] Bilateral CC and MLO view(s) were taken. Technologist: Nicolasa Pierson, Technologist Prior study comparison: April 14, 2019, bilateral digital woman screen mammo performed at [facility]. April 13, 2018, digital woman screen mammo performed at [facility]. June 12, 2015, digital mammo diagnostic bilateral, performed at [facility]. FINDINGS: The breast tissue is heterogeneously dense. This may lower the sensitivity of mammography. The Volpara volumetric breast density category is: C. There is a moderate amount of heterogeneously dense fibroglandular tissue which is fairly symmetric. There is no interval development of dominant mass, architectural distortion, or grouped microcalcification typical of malignancy. There has been no change in the appearance of the mammogram from the prior studies. 3-D tomosynthesis shows no additional findings. Assessment: BI-RADS/ACR category 1 mammogram. Negative Mammogram. Recommendation Routine screening mammogram of both breasts in 1 year (for women over age 40). This patient's Lifetime Breast Cancer RIsk is estimated at 11.8 %. This mammogram was interpreted with the aid of an FDA-approved computer-aided dectection system. Electronically Signed By: Mario Caballero MD 04/16/20 [id number]
== END ==
LOC: M WHC 08:13
PROVIDERS: ATTEND Nurse Practitioner Women's Health
DX: Z12.31 Encounter for screening mammogram for malignant neoplasm of breast (principal); Z92.0 Personal history of contraception

== ENCOUNTER 2020-04-25 07:55 | Outpatient (CLI) | payer BC ==
[~2020-04-25] VITALS: Ht 157.5 cm; Wt 91.1 kg
[2020-04-25 08:00] VITALS: BP 134/76
[2020-04-25] MEDS ORDERED: NS 1,000 ML IV SCH (08:15)
[2020-04-25] MEDS ORDERED: EPINEPHrine INJ 1 MG/ML 1ML AMP IM PRN (08:15)
[2020-04-25] MEDS ORDERED: ALBUTEROL SULFATE 2.5 MG/0.5 ML INH NEB SOLN INH PRN (08:15)
[2020-04-25] MEDS ORDERED: ACETAMINOPHEN 650MG ER TAB (TYLENOL ARTHRITIS) PO ONE (08:15)
[2020-04-25] MEDS ORDERED: diphenhydrAMINE 50MG/ML VIAL (J1200) IV PRN (08:15)
[2020-04-25] MEDS ORDERED: methylPREDNISolone INJ 125 MG/2 ML VIAL (J2930) IV PRN (08:15)
[2020-04-25] MEDS ORDERED: TOCILIZUMAB IV ONE (08:30)
[2020-04-25] MEDS ORDERED: NS IV ONE (08:30)
[2020-04-25 09:24] VITALS: BP 115/72
== END 2020-04-25 09:20 | disposition home or self-care (01) ==
LOC: M INFU 07:55
PROVIDERS: ATTEND Internal Medicine
DX: M06.9 Rheumatoid arthritis, unspecified (principal); Z88.0 Allergy status to penicillin; Z88.8 Allergy status to other drugs, medicaments and biological substances

== ENCOUNTER → 2020-05-17 | Outpatient (CLI) | payer BC ==
[2020-05-17 16:23] LABS: BASO # 0.1 10^3/uL (0.0-0.2); BASO % 1.1 % (0.0-1.0); EOS # 0.6 10^3/uL (0.0-0.5); EOS % 10.6 % (0.0-3.0); HEMATOCRIT 37.8 % (36.0-47.0); HEMOGLOBIN 12.7 g/dl (12.0-15.5); LYMPH # 1.8 10^3/uL (1.5-5.0); LYMPH % 33.6 % (24.0-44.0); MEAN CORPUSCULAR HEMOGLOBIN 35.1 pg (27.0-33.0); MEAN CORPUSCULAR HGB CONC 33.6 g/dl (32.0-36.5); MEAN CORPUSCULAR VOLUME 104.4 fl (80.0-96.0); MONO # 0.7 10^3/uL (0.0-0.8); MONO % 12.2 % (0.0-5.0); NEUTROPHILS # 2.3 10^3/uL (1.5-8.5); NEUTROPHILS % 42.3 % (36.0-66.0); PLATELET COUNT, AUTOMATED 195 10^3/uL (150-450); RED BLOOD COUNT 3.62 10^6/uL (4.00-5.40); WHITE BLOOD COUNT 5.5 10^3/uL (4.0-10.0)
[2020-05-17 16:24] LABS: ALBUMIN 3.6 GM/DL (3.2-5.2); ALT/SGPT 25 U/L (12-78); BILIRUBIN,TOTAL 0.6 MG/DL (0.2-1.0); BLOOD UREA NITROGEN 18 MG/DL (7-18); C REACTIVE PROTEIN QUANTITATIV < 0.30 MG/DL (0.00-0.30); CALCIUM LEVEL 9.1 MG/DL (8.5-10.1); CARBON DIOXIDE LEVEL 30 MEQ/L (21-32); CHLORIDE LEVEL 103 MEQ/L (98-107); CREATININE FOR GFR 1.11 MG/DL (0.55-1.30); GLOMERULAR FILTRATION RATE 54.7 (>51); GLUCOSE, FASTING 189 MG/DL (70-100); POTASSIUM SERUM 4.2 MEQ/L (3.5-5.1); SODIUM LEVEL 140 MEQ/L (136-145); TOTAL PROTEIN 6.7 GM/DL (6.4-8.2)
[2020-05-17 18:01] LABS: ERYTHROCYTE SEDIMENTATION RATE 4 mm/hr (0-30)
[2020-05-17 18:27] LABS: FOLATE > 24.0 NG/ML; VITAMIN B12 LEVEL 1220 PG/ML
[2020-05-21 10:08] LABS: ALBUMIN % 63.1 % (55.8-66.1); ALPHA-1-GLOBULIN % 3.9 % (2.9-4.9)
[2020-05-21 10:09] LABS: ALBUMIN 4.23 GM/DL (3.29-5.55); ALPHA-1-GLOBULINS 0.26 GM/DL (0.17-0.41); BETA-1-GLOBULINS 0.36 GM/DL (0.28-0.60); BETA-1-GLOBULINS % 5.4 % (4.7-7.2); BETA-2-GLOBULINS 0.24 GM/DL (0.19-0.55); BETA-2-GLOBULINS % 3.6 % (3.2-6.5); GAMMA GLOBULINS 1.01 GM/DL (0.65-1.58)
== END ==
LOC: M WUC 14:36
PROVIDERS: ATTEND Internal Medicine
DX: M06.09 Rheumatoid arthritis without rheumatoid factor, multiple sites (principal); R71.8 Other abnormality of red blood cells

== ENCOUNTER 2020-05-23 07:58 | Outpatient (CLI) | payer BC ==
[~2020-05-23] VITALS: Ht 165.7 cm; Wt 91.1 kg
[2020-05-23 08:06] VITALS: BP 162/72
[2020-05-23] MEDS ORDERED: NS 1,000 ML IV SCH (08:15)
[2020-05-23] MEDS ORDERED: diphenhydrAMINE 50MG/ML VIAL (J1200) IV PRN (08:15)
[2020-05-23] MEDS ORDERED: TOCILIZUMAB IV ONE ×2 (08:15→08:30)
[2020-05-23] MEDS ORDERED: ALBUTEROL SULFATE 2.5 MG/0.5 ML INH NEB SOLN INH PRN (08:15)
[2020-05-23] MEDS ORDERED: ACETAMINOPHEN 650MG ER TAB (TYLENOL ARTHRITIS) PO ONE (08:15)
[2020-05-23] MEDS ORDERED: NS IV ONE ×2 (08:15→08:30)
[2020-05-23] MEDS ORDERED: methylPREDNISolone 125MG 2ML VIAL IV PRN (08:15)
[2020-05-23] MEDS ORDERED: EPINEPHrine INJ 1 MG/ML 1ML AMP IM PRN (08:15)
[2020-05-23 09:47] VITALS: BP 115/68
== END 2020-05-23 09:45 | disposition home or self-care (01) ==
LOC: M INFU 07:58
PROVIDERS: ATTEND Internal Medicine
DX: M06.9 Rheumatoid arthritis, unspecified (principal); Z88.0 Allergy status to penicillin; Z88.7 Allergy status to serum and vaccine

== ENCOUNTER → 2020-06-20 | Outpatient (CLI) | payer BC ==
[~2020-06-20] MED LIST changes: +ACETAMINOPHEN TAB 650MG DOSE (2X325MG) PO ONE; +ALBUTEROL SULFATE 2.5 MG/0.5 ML INH NEB SOLN INH PRN; +EPINEPHrine INJ 1 MG/ML 1ML AMP IM PRN; +NS 1,000 ML IV SCH; +[UNRECOGNIZED DRUG - OTHER] IV ONE; +diphenhydrAMINE 50MG/ML VIAL (J1200) IV PRN; +methylPREDNISolone 125MG 2ML VIAL IV PRN
[2020-06-20 08:10] VITALS: BP 170/70
== END ==
LOC: M INFU 08:02
PROVIDERS: ATTEND Internal Medicine
DX: M06.9 Rheumatoid arthritis, unspecified (principal)

== ENCOUNTER 2020-07-18 08:06 | Outpatient (CLI) | payer BC ==
[~2020-07-18] VITALS: Ht 165.1 cm; Wt 83.2 kg
[~2020-07-18 08:06] MED LIST changes: -ACETAMINOPHEN TAB 650MG DOSE (2X325MG) PO ONE; -ALBUTEROL SULFATE 2.5 MG/0.5 ML INH NEB SOLN INH PRN; -EPINEPHrine INJ 1 MG/ML 1ML AMP IM PRN; -NS 1,000 ML IV SCH; -[UNRECOGNIZED DRUG - OTHER] IV ONE; -diphenhydrAMINE 50MG/ML VIAL (J1200) IV PRN; -methylPREDNISolone 125MG 2ML VIAL IV PRN
[2020-07-18 08:15] VITALS: BP 175/79
[2020-07-18] MEDS ORDERED: EPINEPHrine INJ 1 MG/ML 1ML AMP IM PRN (08:30)
[2020-07-18] MEDS ORDERED: TOCILIZUMAB IV ONE (08:30)
[2020-07-18] MEDS ORDERED: diphenhydrAMINE 50MG/ML VIAL (J1200) IV PRN (08:30)
[2020-07-18] MEDS ORDERED: ALBUTEROL SULFATE 2.5 MG/0.5 ML INH NEB SOLN INH PRN (08:30)
[2020-07-18] MEDS ORDERED: ACETAMINOPHEN 650MG ER TAB (TYLENOL ARTHRITIS) PO ONE (08:30)
[2020-07-18] MEDS ORDERED: methylPREDNISolone 125MG 2ML VIAL IV PRN (08:30)
[2020-07-18] MEDS ORDERED: NS IV ONE (08:30)
[2020-07-18] MEDS ORDERED: NS 1,000 ML IV SCH (08:30)
[2020-07-18] MEDS ORDERED: ACETAMINOPHEN TAB 650MG DOSE (2X325MG) As Ordered ONE (08:34)
[2020-07-18 10:10] VITALS: BP 126/70
== END 2020-07-18 10:15 | disposition home or self-care (01) ==
LOC: M INFU 08:06
PROVIDERS: ATTEND Internal Medicine
DX: M06.9 Rheumatoid arthritis, unspecified (principal)

== ENCOUNTER 2020-08-15 13:28 | Outpatient (CLI) | payer BC ==
[~2020-08-15] VITALS: Ht 165.1 cm; Wt 88.5 kg
[2020-08-15 13:30] VITALS: BP 129/79
[2020-08-15] MEDS ORDERED: ACETAMINOPHEN 650MG ER TAB (TYLENOL ARTHRITIS) As Ordered ONE (13:52)
[2020-08-15] MEDS ORDERED: NS 1,000 ML IV SCH (14:00)
[2020-08-15] MEDS ORDERED: methylPREDNISolone 125MG 2ML VIAL IV PRN (14:00)
[2020-08-15] MEDS ORDERED: ALBUTEROL SULFATE 2.5 MG/0.5 ML INH NEB SOLN INH PRN (14:00)
[2020-08-15] MEDS ORDERED: NS IV ONE (14:00)
[2020-08-15] MEDS ORDERED: EPINEPHrine INJ 1 MG/ML 1ML AMP IM PRN (14:00)
[2020-08-15] MEDS ORDERED: ACETAMINOPHEN 650MG ER TAB (TYLENOL ARTHRITIS) PO ONE (14:00)
[2020-08-15] MEDS ORDERED: diphenhydrAMINE 50MG/ML VIAL (J1200) IV PRN (14:00)
[2020-08-15] MEDS ORDERED: TOCILIZUMAB IV ONE (14:00)
[2020-08-15 15:15] VITALS: BP 133/69
== END 2020-08-15 15:15 | disposition home or self-care (01) ==
LOC: M INFU 13:28
PROVIDERS: ATTEND Internal Medicine
DX: M06.9 Rheumatoid arthritis, unspecified (principal); Z88.3 Allergy status to other anti-infective agents; Z79.899 Other long term (current) drug therapy

== ENCOUNTER → 2020-09-03 | Outpatient (REF) | payer BC ==
[2020-09-03 16:11] LABS: BASO # 0.1 10^3/uL (0.0-0.2); BASO % 1.8 % (0.0-1.0); EOS # 0.6 10^3/uL (0.0-0.5); EOS % 16.6 % (0.0-3.0); HEMATOCRIT 37.1 % (36.0-47.0); HEMOGLOBIN 11.9 g/dl (12.0-15.5); LYMPH # 1.1 10^3/uL (1.5-5.0); LYMPH % 31.9 % (24.0-44.0); MEAN CORPUSCULAR HEMOGLOBIN 33.3 pg (27.0-33.0); MEAN CORPUSCULAR HGB CONC 32.1 g/dl (32.0-36.5); MEAN CORPUSCULAR VOLUME 103.9 fl (80.0-96.0); MONO # 0.4 10^3/uL (0.0-0.8); MONO % 10.8 % (0.0-5.0); NEUTROPHILS # 1.3 10^3/uL (1.5-8.5); NEUTROPHILS % 38.6 % (36.0-66.0); PLATELET COUNT, AUTOMATED 181 10^3/uL (150-450); RED BLOOD COUNT 3.57 10^6/uL (4.00-5.40); WHITE BLOOD COUNT 3.3 10^3/uL (4.0-10.0)
[2020-09-03 16:38] LABS: ALBUMIN 3.3 GM/DL (3.2-5.2); ALT/SGPT 23 U/L (12-78); BILIRUBIN,TOTAL 0.4 MG/DL (0.2-1.0); BLOOD UREA NITROGEN 21 MG/DL (7-18); CALCIUM LEVEL 8.7 MG/DL (8.5-10.1); CARBON DIOXIDE LEVEL 29 MEQ/L (21-32); CHLORIDE LEVEL 104 MEQ/L (98-107); GLOMERULAR FILTRATION RATE > 60.0 (>51); GLUCOSE, FASTING 195 MG/DL (70-100); IMMUNOGLOBULIN G 950 MG/DL (681-1648); POTASSIUM SERUM 4.7 MEQ/L (3.5-5.1); SODIUM LEVEL 136 MEQ/L (136-145); TOTAL PROTEIN 6.1 GM/DL (6.4-8.2)
== END ==
LOC: M LABDRAWC 15:42
PROVIDERS: ATTEND Allergy & Immunology Allergy
DX: D83.9 Common variable immunodeficiency, unspecified (principal)

== ENCOUNTER → 2020-09-03 | Outpatient (REF) | payer BC ==
[2020-09-03 16:11] LABS: APPEARANCE, URINE CLEAR (CLEAR); BACTERIA, URINE AUTO NEGATIVE (NEGATIVE); BILIRUBIN, URINE AUTO NEGATIVE (NEGATIVE); BLOOD, URINE BLOOD NEGATIVE (NEGATIVE); COLOR, URINE YELLOW (YELLOW); GLUCOSE, URINE (UA) AUTO NEGATIVE (NEGATIVE); HEMATOCRIT 38.3 % (36.0-47.0); HEMOGLOBIN 12.5 g/dl (12.0-15.5); KETONE, URINE AUTO NEGATIVE (NEGATIVE); LEUKOCYTE ESTERASE, URINE AUTO NEGATIVE (NEGATIVE); MEAN CORPUSCULAR HEMOGLOBIN 34.1 pg (27.0-33.0); MEAN CORPUSCULAR HGB CONC 32.6 g/dl (32.0-36.5); MEAN CORPUSCULAR VOLUME 104.4 fl (80.0-96.0); MUCUS, URINE SMALL (NEGATIVE); NITRITE, URINE AUTO NEGATIVE (NEGATIVE); PLATELET COUNT, AUTOMATED 181 10^3/uL (150-450); PROTEIN, URINE AUTO NEGATIVE (NEGATIVE); RBC, URINE AUTO 0 /HPF (0-3); RED BLOOD COUNT 3.67 10^6/uL (4.00-5.40); SPECIFIC GRAVITY URINE AUTO 1.012 (1.002-1.035); SQUAMOUS EPITHELIAL CELL UR AU 0 /HPF (0-6); UROBILINOGEN, URINE AUTO 0.2 mg/dL (0.0-2.0); WBC, URINE AUTO 0 /HPF (0-3); WHITE BLOOD COUNT 3.5 10^3/uL (4.0-10.0)
[2020-09-03 16:46] LABS: ALBUMIN 3.3 GM/DL (3.2-5.2); ALT/SGPT 22 U/L (12-78); BILIRUBIN,TOTAL 0.4 MG/DL (0.2-1.0); BLOOD UREA NITROGEN 20 MG/DL (7-18); CALCIUM LEVEL 8.9 MG/DL (8.5-10.1); CARBON DIOXIDE LEVEL 29 MEQ/L (21-32); CHLORIDE LEVEL 103 MEQ/L (98-107); CHOLESTEROL LEVEL 205 MG/DL (<200); CREATININE FOR GFR 1.01 MG/DL (0.55-1.30); FREE T4 0.95 NG/DL (0.76-1.46); GLOMERULAR FILTRATION RATE > 60.0 (>51); GLUCOSE, FASTING 189 MG/DL (70-100); HDL CHOLESTEROL 100 MG/DL (>40); LDL CHOLESTEROL 90 MG/DL (<100); NON-HDL-C 105 MG/DL; POTASSIUM SERUM 4.6 MEQ/L (3.5-5.1); SODIUM LEVEL 135 MEQ/L (136-145); TOTAL PROTEIN 6.2 GM/DL (6.4-8.2); TRIGLYCERIDES LEVEL 76 MG/DL (<150)
[2020-09-03 16:47] LABS: CREATININE, URINE 68.1 MG/DL; MALB URINE SIEMENS 7.6 MG/L; MAU/CREAT RATIO 11.1 MCG/MG (0.0-30.0)
[2020-09-03 17:01] LABS: VITAMIN B12 LEVEL 996 PG/ML (247-911)
== END ==
LOC: M LABDRAWC 15:46
PROVIDERS: ATTEND Internal Medicine Endocrinology, Diabetes & Metabolism
DX: E11.649 Type 2 diabetes mellitus with hypoglycemia without coma (principal); Z79.4 Long term (current) use of insulin; E06.3 Autoimmune thyroiditis; E10.65 Type 1 diabetes mellitus with hyperglycemia

== ENCOUNTER → 2020-09-03 | Outpatient (REF) | payer BC ==
[2020-09-03 16:11] LABS: BASO # 0.1 10^3/uL (0.0-0.2); BASO % 1.5 % (0.0-1.0); EOS # 0.5 10^3/uL (0.0-0.5); EOS % 15.7 % (0.0-3.0); HEMATOCRIT 37.1 % (36.0-47.0); MEAN CORPUSCULAR HEMOGLOBIN 33.6 pg (27.0-33.0); MEAN CORPUSCULAR HGB CONC 32.3 g/dl (32.0-36.5); MEAN CORPUSCULAR VOLUME 103.9 fl (80.0-96.0); MONO # 0.4 10^3/uL (0.0-0.8); MONO % 11.1 % (0.0-5.0); NEUTROPHILS # 1.4 10^3/uL (1.5-8.5); NEUTROPHILS % 40.7 % (36.0-66.0); PLATELET COUNT, AUTOMATED 181 10^3/uL (150-450); RED BLOOD COUNT 3.57 10^6/uL (4.00-5.40); WHITE BLOOD COUNT 3.3 10^3/uL (4.0-10.0)
[2020-09-03 16:38] LABS: ALBUMIN 3.3 GM/DL (3.2-5.2); ALT/SGPT 23 U/L (12-78); BILIRUBIN,TOTAL 0.4 MG/DL (0.2-1.0); BLOOD UREA NITROGEN 21 MG/DL (7-18); CALCIUM LEVEL 8.7 MG/DL (8.5-10.1); CARBON DIOXIDE LEVEL 29 MEQ/L (21-32); CHLORIDE LEVEL 104 MEQ/L (98-107); CREATININE FOR GFR 1.02 MG/DL (0.55-1.30); GLOMERULAR FILTRATION RATE > 60.0 (>51); GLUCOSE, FASTING 191 MG/DL (70-100); POTASSIUM SERUM 4.7 MEQ/L (3.5-5.1); SODIUM LEVEL 136 MEQ/L (136-145); TOTAL PROTEIN 6.2 GM/DL (6.4-8.2)
[2020-09-03 16:39] LABS: ERYTHROCYTE SEDIMENTATION RATE 5 mm/hr (0-30)
== END ==
LOC: M SFHCCLAY 07:31
PROVIDERS: ATTEND Internal Medicine
DX: M06.09 Rheumatoid arthritis without rheumatoid factor, multiple sites (principal)

== ENCOUNTER → 2020-09-10 | Outpatient (CLI) | payer BC ==
[2020-09-10 15:41] LABS: HEMATOCRIT 39.5 % (36.0-47.0); HEMOGLOBIN 12.8 g/dl (12.0-15.5); MEAN CORPUSCULAR HEMOGLOBIN 33.1 pg (27.0-33.0); MEAN CORPUSCULAR HGB CONC 32.4 g/dl (32.0-36.5); MEAN CORPUSCULAR VOLUME 102.1 fl (80.0-96.0); PLATELET COUNT, AUTOMATED 211 10^3/uL (150-450); RED BLOOD COUNT 3.87 10^6/uL (4.00-5.40); WHITE BLOOD COUNT 6.1 10^3/uL (4.0-10.0)
== END ==
LOC: M WUC 14:15
PROVIDERS: ATTEND Internal Medicine
DX: M06.9 Rheumatoid arthritis, unspecified (principal)

== ENCOUNTER 2020-09-12 07:50 | Outpatient (CLI) | payer BC ==
[~2020-09-12] VITALS: Ht 165.1 cm; Wt 88.5 kg
[2020-09-12 07:58] VITALS: BP 161/72
[2020-09-12] MEDS ORDERED: [UNRECOGNIZED DRUG - OTHER] IV ONE (08:00)
[2020-09-12] MEDS ORDERED: EPINEPHrine INJ 1 MG/ML 1ML AMP IM PRN (08:00)
[2020-09-12] MEDS ORDERED: diphenhydrAMINE 50MG/ML VIAL (J1200) IV PRN (08:00)
[2020-09-12] MEDS ORDERED: ACETAMINOPHEN TAB 650MG DOSE (2X325MG) PO ONE (08:00)
[2020-09-12] MEDS ORDERED: NS 1,000 ML IV SCH (08:00)
[2020-09-12] MEDS ORDERED: methylPREDNISolone 125MG 2ML VIAL IV PRN (08:00)
[2020-09-12] MEDS ORDERED: ALBUTEROL SULFATE 2.5 MG/0.5 ML INH NEB SOLN INH PRN (08:00)
[2020-09-12 08:26] VITALS: BP 161/72
[2020-09-12 09:10] VITALS: BP 120/65
[2020-09-12 09:40] VITALS: BP 135/69
== END 2020-09-12 09:40 | disposition home or self-care (01) ==
LOC: M INFU 07:50
PROVIDERS: ATTEND Internal Medicine
DX: M06.9 Rheumatoid arthritis, unspecified (principal)

== ENCOUNTER 2020-10-10 07:24 | Outpatient (CLI) | payer BC ==
[~2020-10-10] VITALS: Ht 165.1 cm; Wt 88.5 kg
[2020-10-10] MEDS ORDERED: ALBUTEROL SULFATE 2.5 MG/0.5 ML INH NEB SOLN INH PRN (07:30)
[2020-10-10] MEDS ORDERED: EPINEPHrine INJ 1 MG/ML 1ML AMP IM PRN (07:30)
[2020-10-10] MEDS ORDERED: NS 1,000 ML IV SCH (07:30)
[2020-10-10] MEDS ORDERED: methylPREDNISolone 125MG 2ML VIAL IV PRN (07:30)
[2020-10-10] MEDS ORDERED: [UNRECOGNIZED DRUG - OTHER] IV ONE (07:30)
[2020-10-10] MEDS ORDERED: diphenhydrAMINE 50MG/ML VIAL (J1200) IV PRN (07:30)
[2020-10-10] MEDS ORDERED: ACETAMINOPHEN 650MG ER TAB (TYLENOL ARTHRITIS) PO ONE (07:30)
[2020-10-10 07:32] VITALS: BP 156/70
[2020-10-10 07:42] VITALS: BP 156/70
[2020-10-10 08:53] VITALS: BP 116/64
== END 2020-10-10 08:55 | disposition home or self-care (01) ==
LOC: M INFU 07:24
PROVIDERS: ATTEND Internal Medicine
DX: M06.9 Rheumatoid arthritis, unspecified (principal); Z88.0 Allergy status to penicillin

== ENCOUNTER 2020-11-07 07:53 | Outpatient (CLI) | payer BC ==
[~2020-11-07] VITALS: Ht 165.1 cm; Wt 88.5 kg
[~2020-11-07 07:53] MED LIST changes: +ALBUTEROL SULFATE 2.5 MG/0.5 ML INH NEB SOLN INH PRN; +EPINEPHrine INJ 1 MG/ML 1ML AMP IM PRN; -MONT10TA4 PO; +MONT5TAB2 PO; +diphenhydrAMINE 50MG/ML VIAL (J1200) IV PRN; +methylPREDNISolone 125MG 2ML VIAL IV PRN
[2020-11-07] MEDS ORDERED: NS 1,000 ML IV SCH (08:00)
[2020-11-07] MEDS ORDERED: ACETAMINOPHEN 650MG ER TAB (TYLENOL ARTHRITIS) PO ONE (08:00)
[2020-11-07] MEDS ORDERED: [UNRECOGNIZED DRUG - OTHER] IV ONE (08:00)
[2020-11-07 08:06] VITALS: BP 131/67
[2020-11-07 09:30] VITALS: BP 120/79
== END 2020-11-07 09:30 | disposition home or self-care (01) ==
LOC: M INFU 07:53
PROVIDERS: ATTEND Internal Medicine
DX: M06.9 Rheumatoid arthritis, unspecified (principal); Z88.0 Allergy status to penicillin; Z88.8 Allergy status to other drugs, medicaments and biological substances

== ENCOUNTER 2020-12-05 08:03 | Outpatient (CLI) | payer BC ==
[~2020-12-05] VITALS: Ht 165.1 cm; Wt 86.0 kg
[~2020-12-05 08:03] MED LIST changes: +ACETAMINOPHEN 650MG ER TAB (TYLENOL ARTHRITIS) PO ONE; +NS 1,000 ML IV SCH; +NS IV ONE; +TOCILIZUMAB IV ONE
[2020-12-05 08:21] VITALS: BP 129/68
[2020-12-05 08:25] VITALS: BP 129/68
[2020-12-05 10:22] VITALS: BP 122/72
== END 2020-12-05 10:15 | disposition home or self-care (01) ==
LOC: M INFU 08:03
PROVIDERS: ATTEND Internal Medicine
DX: M06.9 Rheumatoid arthritis, unspecified (principal); Z88.0 Allergy status to penicillin

== ENCOUNTER → 2020-12-06 | Outpatient (CLI) | payer BC ==
[~2020-12-06] MED LIST changes: -ACETAMINOPHEN 650MG ER TAB (TYLENOL ARTHRITIS) PO ONE; -ALBUTEROL SULFATE 2.5 MG/0.5 ML INH NEB SOLN INH PRN; -EPINEPHrine INJ 1 MG/ML 1ML AMP IM PRN; -NS 1,000 ML IV SCH; -NS IV ONE; -TOCILIZUMAB IV ONE; -diphenhydrAMINE 50MG/ML VIAL (J1200) IV PRN; -methylPREDNISolone 125MG 2ML VIAL IV PRN
[2020-12-06 16:22] LABS: BASO # 0.1 10^3/uL (0.0-0.2); BASO % 1.1 % (0.0-1.0); EOS # 0.6 10^3/uL (0.0-0.5); EOS % 14.4 % (0.0-3.0); HEMATOCRIT 39.7 % (36.0-47.0); HEMOGLOBIN 13.1 g/dl (12.0-15.5); LYMPH # 1.7 10^3/uL (1.5-5.0); LYMPH % 38.8 % (24.0-44.0); MEAN CORPUSCULAR HEMOGLOBIN 33.7 pg (27.0-33.0); MEAN CORPUSCULAR VOLUME 102.1 fl (80.0-96.0); MONO # 0.6 10^3/uL (0.0-0.8); MONO % 12.4 % (0.0-5.0); NEUTROPHILS # 1.5 10^3/uL (1.5-8.5); NEUTROPHILS % 33.1 % (36.0-66.0); PLATELET COUNT, AUTOMATED 200 10^3/uL (150-450); RED BLOOD COUNT 3.89 10^6/uL (4.00-5.40); WHITE BLOOD COUNT 4.4 10^3/uL (4.0-10.0)
[2020-12-06 16:49] LABS: ERYTHROCYTE SEDIMENTATION RATE 5 mm/hr (0-30)
[2020-12-06 16:53] LABS: ALBUMIN 3.8 GM/DL (3.2-5.2); BILIRUBIN,TOTAL 0.5 MG/DL (0.2-1.0); C REACTIVE PROTEIN QUANTITATIV 0.3 MG/DL (0.00-0.30); CALCIUM LEVEL 9.4 MG/DL (8.5-10.1); CREATININE FOR GFR 1.18 MG/DL (0.55-1.30); GLOMERULAR FILTRATION RATE 50.8 (>51); POTASSIUM SERUM 4.3 MEQ/L (3.5-5.1); TOTAL PROTEIN 6.9 GM/DL (6.4-8.2)
== END ==
LOC: M WUC 14:06
PROVIDERS: ATTEND Internal Medicine
DX: M06.9 Rheumatoid arthritis, unspecified (principal)

== ENCOUNTER 2021-01-02 07:54 | Outpatient (CLI) | payer BC ==
[~2021-01-02] VITALS: Ht 165.1 cm; Wt 86.0 kg
[~2021-01-02 07:54] MED LIST changes: +ALBUTEROL SULFATE 2.5 MG/0.5 ML INH NEB SOLN INH PRN; +EPINEPHrine INJ 1 MG/ML 1ML AMP IM PRN; -LISI-538 PO; +LISI20TA33 PO; +MONT10TA10 PO; -MONT5TAB2 PO; +diphenhydrAMINE 50MG/ML VIAL (J1200) IV PRN; +methylPREDNISolone 125MG 2ML VIAL IV PRN
[2021-01-02] MEDS ORDERED: ACETAMINOPHEN 650MG ER TAB (TYLENOL ARTHRITIS) PO ONE (08:00)
[2021-01-02] MEDS ORDERED: TOCILIZUMAB IV ONE (08:00)
[2021-01-02] MEDS ORDERED: NS 1,000 ML IV SCH (08:00)
[2021-01-02] MEDS ORDERED: NS IV ONE (08:00)
[2021-01-02 08:10] VITALS: BP 144/92
[2021-01-02 08:17] VITALS: BP 144/92
[2021-01-02 09:42] VITALS: BP 124/71
== END 2021-01-02 09:40 | disposition home or self-care (01) ==
LOC: M INFU 07:54
PROVIDERS: ATTEND Internal Medicine
DX: M06.9 Rheumatoid arthritis, unspecified (principal); Z88.0 Allergy status to penicillin; Z88.8 Allergy status to other drugs, medicaments and biological substances

== ENCOUNTER 2021-02-06 08:49 | Outpatient (CLI) | payer BC ==
[~2021-02-06] VITALS: Ht 165.1 cm; Wt 86.0 kg
[2021-02-06] MEDS ORDERED: NS 1,000 ML IV SCH (09:00)
[2021-02-06] MEDS ORDERED: [UNRECOGNIZED DRUG - OTHER] IV ONE ×2 (09:00)
[2021-02-06] MEDS ORDERED: ACETAMINOPHEN 650MG ER TAB (TYLENOL ARTHRITIS) PO ONE (09:00)
[2021-02-06 10:00] VITALS: BP 147/72
== END 2021-02-06 10:10 | disposition home or self-care (01) ==
LOC: M INFU 08:49
PROVIDERS: ATTEND Internal Medicine
DX: M06.9 Rheumatoid arthritis, unspecified (principal); Z88.0 Allergy status to penicillin; Z88.8 Allergy status to other drugs, medicaments and biological substances

== ENCOUNTER 2021-03-06 08:21 | Outpatient (CLI) | payer BC ==
[~2021-03-06] VITALS: Ht 165.7 cm; Wt 86.1 kg
[2021-03-06] MEDS ORDERED: NS 1,000 ML IV SCH (08:30)
[2021-03-06] MEDS ORDERED: TOCILIZUMAB IV ONE (08:30)
[2021-03-06] MEDS ORDERED: NS IV ONE (08:30)
[2021-03-06] MEDS ORDERED: ACETAMINOPHEN 650MG ER TAB (TYLENOL ARTHRITIS) PO ONE (08:30)
[2021-03-06 08:34] VITALS: BP 161/84
[2021-03-06 10:20] VITALS: BP 144/85
== END 2021-03-06 10:20 | disposition home or self-care (01) ==
LOC: M INFU 08:21
PROVIDERS: ATTEND Internal Medicine
DX: M06.9 Rheumatoid arthritis, unspecified (principal); Z88.0 Allergy status to penicillin; Z88.8 Allergy status to other drugs, medicaments and biological substances

== ENCOUNTER 2021-04-03 08:22 | Outpatient (CLI) | payer BC ==
[~2021-04-03] VITALS: Ht 165.1 cm; Wt 86.0 kg
[~2021-04-03 08:22] MED LIST changes: +ACETAMINOPHEN 650MG ER TAB (TYLENOL ARTHRITIS) PO ONE
[2021-04-03] MEDS ORDERED: NS 1,000 ML IV SCH (08:30)
[2021-04-03] MEDS ORDERED: NS IV ONE (08:30)
[2021-04-03] MEDS ORDERED: TOCILIZUMAB IV ONE (08:30)
[2021-04-03 08:38] VITALS: BP 178/93
[2021-04-03 08:46] VITALS: BP 178/93
[2021-04-03 10:04] VITALS: BP 140/80
== END 2021-04-03 10:10 | disposition home or self-care (01) ==
LOC: M INFU 08:22
PROVIDERS: ATTEND Internal Medicine
DX: M06.9 Rheumatoid arthritis, unspecified (principal); Z88.0 Allergy status to penicillin

== ENCOUNTER → 2021-04-09 | Outpatient (CLI) | payer BC ==
[~2021-04-09] MED LIST changes: -ACETAMINOPHEN 650MG ER TAB (TYLENOL ARTHRITIS) PO ONE; -ALBUTEROL SULFATE 2.5 MG/0.5 ML INH NEB SOLN INH PRN; -EPINEPHrine INJ 1 MG/ML 1ML AMP IM PRN; -diphenhydrAMINE 50MG/ML VIAL (J1200) IV PRN; -methylPREDNISolone 125MG 2ML VIAL IV PRN
[2021-04-09 16:19] LABS: BASO # 0.1 10^3/uL (0.0-0.2); BASO % 1.3 % (0.0-1.0); EOS # 0.7 10^3/uL (0.0-0.5); EOS % 14.5 % (0.0-3.0); HEMATOCRIT 40.7 % (36.0-47.0); HEMOGLOBIN 13.3 g/dl (12.0-15.5); LYMPH # 1.8 10^3/uL (1.5-5.0); LYMPH % 39.9 % (24.0-44.0); MEAN CORPUSCULAR HEMOGLOBIN 33.6 pg (27.0-33.0); MEAN CORPUSCULAR HGB CONC 32.7 g/dl (32.0-36.5); MEAN CORPUSCULAR VOLUME 102.8 fl (80.0-96.0); MONO # 0.6 10^3/uL (0.0-0.8); MONO % 11.9 % (2.0-8.0); NEUTROPHILS # 1.5 10^3/uL (1.5-8.5); NEUTROPHILS % 32.2 % (36.0-66.0); PLATELET COUNT, AUTOMATED 205 10^3/uL (150-450); RED BLOOD COUNT 3.96 10^6/uL (4.00-5.40); WHITE BLOOD COUNT 4.6 10^3/uL (4.0-10.0)
[2021-04-09 16:44] LABS: ALBUMIN 3.7 GM/DL (3.2-5.2); BILIRUBIN,TOTAL 0.4 MG/DL (0.2-1.0); C REACTIVE PROTEIN QUANTITATIV 0.3 MG/DL (0.00-0.30); CALCIUM LEVEL 9.8 MG/DL (8.5-10.1); CREATININE FOR GFR 1.08 MG/DL (0.55-1.30); GLOMERULAR FILTRATION RATE 56.3 (>51); POTASSIUM SERUM 4.4 MEQ/L (3.5-5.1); TOTAL PROTEIN 6.8 GM/DL (6.4-8.2)
[2021-04-09 18:41] LABS: ERYTHROCYTE SEDIMENTATION RATE 5 mm/hr (0-30)
== END ==
LOC: M WUC 14:09
PROVIDERS: ATTEND Internal Medicine
DX: M06.09 Rheumatoid arthritis without rheumatoid factor, multiple sites (principal); Z20.5 Contact with and (suspected) exposure to viral hepatitis

== ENCOUNTER → 2021-04-18 | Outpatient (CLI) | payer BC ==
--- NOTE | 2021-04-18 14:51 | REP ---
INDICATION: RHEUMATOID ARTHRITIS COMPARISON: 12/05/2018. TECHNIQUE: Four views bilateral hands. FINDINGS: There is no evidence of acute fracture, dislocation, or intrinsic bone disease.The right hand demonstrates 2 subcentimeter subcortical cysts in the head of the 5th metacarpal and 1 in the head of the 3rd metacarpal. There is minimal joint space narrowing of the interphalangeal joints. On the left a subcentimeter cystic structure is seen in the head of the 1st metacarpal. There is minimal joint space narrowing of the interphalangeal joints. IMPRESSION: No fracture or dislocation. Minor bilateral arthritic changes. <Electronically signed by Margarito Willams > 04/18/21 0213
--- NOTE | 2021-04-18 14:57 | REP ---
INDICATION: RHEUMATOID ARTHRITIS COMPARISON: 02/23/2013. TECHNIQUE: Four views bilateral feet. FINDINGS: There is no evidence of acute fracture, dislocation, or intrinsic bone disease.The right foot demonstrates mild inferior calcaneal spurring. There is an accessory ossicle of the navicular bone. There is mild narrowing of the talonavicular joint with mild subchondral sclerosis. There is mild spurring at the medial margin of the joint between the medial cuneiform the base of 1st metatarsal, with mild joint space narrowing and subchondral sclerosis. There is mild narrowing and subchondral sclerosis at the 1st metatarsophalangeal joint with moderate hallux valgus deformity. There is mild erosion of the lateral head of 1st metatarsal. There are mild vascular calcifications in the soft tissues. The left foot demonstrates a moderate sized inferior calcaneal spur. There is a small spur at the medial aspect of the medial cuneiform bone. There is slight narrowing of the talonavicular joint. There is slight narrowing and subchondral sclerosis of the 1st metatarsophalangeal joint. There is a subcentimeter accessory ossicle of the navicular bone. Mild vascular calcifications are seen in the soft tissues. IMPRESSION: No fracture or dislocation. Arthritic changes as discussed in detail above, greater on the right than on the left. <Electronically signed by Margarito Willams > 04/18/21 [id number]
== END ==
LOC: M WUC 14:07
PROVIDERS: ATTEND Internal Medicine Rheumatology
DX: M19.041 Primary osteoarthritis, right hand (principal); M19.042 Primary osteoarthritis, left hand; M19.071 Primary osteoarthritis, right ankle and foot; M19.072 Primary osteoarthritis, left ankle and foot; M06.09 Rheumatoid arthritis without rheumatoid factor, multiple sites

== ENCOUNTER 2021-05-01 08:21 | Outpatient (CLI) | payer BC ==
[~2021-05-01] VITALS: Ht 165.1 cm; Wt 89.0 kg
[~2021-05-01 08:21] MED LIST changes: +ACETAMINOPHEN 650MG ER TAB (TYLENOL ARTHRITIS) PO ONE
[2021-05-01 08:30] VITALS: BP 187/86
[2021-05-01] MEDS ORDERED: NS 1,000 ML IV SCH (08:30)
[2021-05-01] MEDS ORDERED: EPINEPHrine INJ 1 MG/ML 1ML AMP IM PRN (08:30)
[2021-05-01] MEDS ORDERED: NS IV ONE (08:30)
[2021-05-01] MEDS ORDERED: ALBUTEROL SULFATE 2.5 MG/0.5 ML INH NEB SOLN INH PRN (08:30)
[2021-05-01] MEDS ORDERED: diphenhydrAMINE 50MG/ML VIAL (J1200) IV PRN (08:30)
[2021-05-01] MEDS ORDERED: TOCILIZUMAB IV ONE (08:30)
[2021-05-01] MEDS ORDERED: methylPREDNISolone 125MG 2ML VIAL IV PRN (08:30)
[2021-05-01 09:58] VITALS: BP 135/62
== END 2021-05-01 10:00 | disposition home or self-care (01) ==
LOC: M INFU 08:21
PROVIDERS: ATTEND Internal Medicine
DX: M06.9 Rheumatoid arthritis, unspecified (principal)

== ENCOUNTER 2021-05-29 08:10 | Outpatient (CLI) | payer BC ==
[~2021-05-29] VITALS: Ht 165.1 cm; Wt 89.0 kg
[~2021-05-29 08:10] MED LIST changes: +ALBUTEROL SULFATE 2.5 MG/0.5 ML INH NEB SOLN INH PRN; +EPINEPHrine INJ 1 MG/ML 1ML AMP IM PRN; +NS 1,000 ML IV SCH; +NS IV ONE; +TOCILIZUMAB IV ONE; +diphenhydrAMINE 50MG/ML VIAL (J1200) IV PRN; +methylPREDNISolone 125MG 2ML VIAL IV PRN
[2021-05-29 08:15] VITALS: BP 153/81
[2021-05-29 08:32] VITALS: BP 153/81
[2021-05-29 09:37] VITALS: BP 168/86
== END 2021-05-29 09:45 | disposition home or self-care (01) ==
LOC: M INFU 08:10
PROVIDERS: ATTEND Internal Medicine
DX: M06.9 Rheumatoid arthritis, unspecified (principal); Z88.0 Allergy status to penicillin

== ENCOUNTER 2021-06-26 08:08 | Outpatient (CLI) | payer BC ==
[~2021-06-26] VITALS: Ht 160 cm; Wt 86.8 kg
[2021-06-26 08:22] VITALS: BP 145/78
[2021-06-26 08:32] VITALS: BP 145/78
[2021-06-26 09:55] VITALS: BP 141/80
== END 2021-06-26 10:00 | disposition home or self-care (01) ==
LOC: M INFU 08:08
PROVIDERS: ATTEND Internal Medicine
DX: M06.9 Rheumatoid arthritis, unspecified (principal); Z88.0 Allergy status to penicillin

== ENCOUNTER → 2021-07-29 | Outpatient (REF) | payer BC ==
[~2021-07-29] MED LIST changes: -ACETAMINOPHEN 650MG ER TAB (TYLENOL ARTHRITIS) PO ONE; -ALBUTEROL SULFATE 2.5 MG/0.5 ML INH NEB SOLN INH PRN; -EPINEPHrine INJ 1 MG/ML 1ML AMP IM PRN; -NS 1,000 ML IV SCH; -NS IV ONE; -TOCILIZUMAB IV ONE; -diphenhydrAMINE 50MG/ML VIAL (J1200) IV PRN; -methylPREDNISolone 125MG 2ML VIAL IV PRN
[2021-07-29 20:58] LABS: IMMUNOGLOBULIN E 16.5 IU/ML (<100); IMMUNOGLOBULIN M 36.8 MG/DL (40-230)
== END ==
LOC: M LABDRAWC 18:29
PROVIDERS: ATTEND Allergy & Immunology Allergy
DX: D84.9 Immunodeficiency, unspecified (principal)

== ENCOUNTER → 2021-07-29 | Outpatient (CLI) | payer BC ==
--- NOTE | 2021-07-30 05:15 | REP ---
INDICATION: J18.9, PNEUMONIA OF LEFT LUNG DUE TO INFECTIOUS ORGANISM COMPARISON: 01/17/2014 TECHNIQUE: PA and lateral. FINDINGS: The mediastinum and cardiac silhouette are normal. The lung moore are clear and without acute consolidation, effusion, or pneumothorax. The skeletal structures are intact and normal. IMPRESSION: No acute cardiopulmonary process. <Electronically signed by Nathan Munoz > 07/30/21 0511
== END ==
LOC: M CLY 13:39
PROVIDERS: ATTEND Family Medicine
DX: J18.9 Pneumonia, unspecified organism (principal)

== ENCOUNTER → 2021-07-29 | Outpatient (REF) | payer BC ==
[2021-07-29 19:46] LABS: BASO # 0.1 10^3/uL (0.0-0.2); BASO % 1.4 % (0.0-1.0); EOS # 0.4 10^3/uL (0.0-0.5); EOS % 8.5 % (0.0-3.0); HEMATOCRIT 39.1 % (36.0-47.0); HEMOGLOBIN 12.7 g/dl (12.0-15.5); LYMPH # 1.7 10^3/uL (1.5-5.0); LYMPH % 33.7 % (24.0-44.0); MEAN CORPUSCULAR HEMOGLOBIN 34.3 pg (27.0-33.0); MEAN CORPUSCULAR HGB CONC 32.5 g/dl (32.0-36.5); MEAN CORPUSCULAR VOLUME 105.7 fl (80.0-96.0); MONO # 0.7 10^3/uL (0.0-0.8); MONO % 13.1 % (2.0-8.0); NEUTROPHILS # 2.1 10^3/uL (1.5-8.5); NEUTROPHILS % 42.9 % (36.0-66.0); PLATELET COUNT, AUTOMATED 209 10^3/uL (150-450)
[2021-07-29 20:13] LABS: ALBUMIN 3.6 GM/DL (3.2-5.2); ALT/SGPT 35 U/L (12-78); BILIRUBIN,TOTAL 0.4 MG/DL (0.2-1.0); BLOOD UREA NITROGEN 12 MG/DL (7-18); CALCIUM LEVEL 9.7 MG/DL (8.5-10.1); CARBON DIOXIDE LEVEL 31 MEQ/L (21-32); CHLORIDE LEVEL 102 MEQ/L (98-107); CREATININE FOR GFR 0.93 MG/DL (0.55-1.30); GLOMERULAR FILTRATION RATE > 60.0 (>51); GLUCOSE, FASTING 124 MG/DL (70-100); POTASSIUM SERUM 4.3 MEQ/L (3.5-5.1); SODIUM LEVEL 137 MEQ/L (136-145); TOTAL PROTEIN 6.8 GM/DL (6.4-8.2)
[2021-07-29 20:16] LABS: ERYTHROCYTE SEDIMENTATION RATE 7 mm/hr (0-30)
== END ==
LOC: M SFHCCLAY 13:07
PROVIDERS: ATTEND Internal Medicine Rheumatology
DX: M06.09 Rheumatoid arthritis without rheumatoid factor, multiple sites (principal)

== ENCOUNTER → 2021-08-06 | Outpatient (CLI) | payer BC ==
[~2021-08-06] VITALS: Ht 160 cm; Wt 86.8 kg
[~2021-08-06] MED LIST changes: +ACETAMINOPHEN 650MG ER TAB (TYLENOL ARTHRITIS) PO ONE; +ALBUTEROL SULFATE 2.5 MG/0.5 ML INH NEB SOLN INH PRN; +EPINEPHrine INJ 1 MG/ML 1ML AMP IM PRN; +NS 1,000 ML IV SCH; +NS IV ONE; +TOCILIZUMAB IV ONE; +diphenhydrAMINE 50MG/ML VIAL (J1200) IV PRN; +methylPREDNISolone 125MG 2ML VIAL IV PRN
[2021-08-06 11:44] VITALS: BP 144/70
== END ==
LOC: M INFU 11:31
PROVIDERS: ATTEND Internal Medicine
DX: Z53.8 Procedure and treatment not carried out for other reasons (principal)

== ENCOUNTER 2021-08-15 10:57 | Outpatient (CLI) | payer BC ==
[~2021-08-15] VITALS: Ht 165.1 cm; Wt 85.9 kg
[~2021-08-15 10:57] MED LIST changes: -MONT10TA10 PO; +MONT10TA97 PO
[2021-08-15 11:00] VITALS: BP 154/79
[2021-08-15 12:30] VITALS: BP 115/64
[2021-08-15 12:35] VITALS: BP 115/64
== END 2021-08-15 12:35 | disposition home or self-care (01) ==
LOC: M INFU 10:57
PROVIDERS: ATTEND Internal Medicine Rheumatology
DX: M06.9 Rheumatoid arthritis, unspecified (principal); Z88.0 Allergy status to penicillin

== ENCOUNTER 2021-09-11 08:10 | Outpatient (CLI) | payer BC ==
[~2021-09-11] VITALS: Ht 165.1 cm; Wt 85.9 kg
[~2021-09-11 08:10] MED LIST changes: -ACETAMINOPHEN 650MG ER TAB (TYLENOL ARTHRITIS) PO ONE; -ALBUTEROL SULFATE 2.5 MG/0.5 ML INH NEB SOLN INH PRN; -EPINEPHrine INJ 1 MG/ML 1ML AMP IM PRN; +MONT10TA10 PO; -MONT10TA97 PO; -NS 1,000 ML IV SCH; -NS IV ONE; -TOCILIZUMAB IV ONE; -diphenhydrAMINE 50MG/ML VIAL (J1200) IV PRN; -methylPREDNISolone 125MG 2ML VIAL IV PRN
[2021-09-11 08:16] VITALS: BP 127/78
[2021-09-11] MEDS ORDERED: EPINEPHrine INJ 1 MG/ML 1ML AMP IM PRN (08:30)
[2021-09-11] MEDS ORDERED: ALBUTEROL SULFATE 2.5 MG/0.5 ML INH NEB SOLN INH PRN (08:30)
[2021-09-11] MEDS ORDERED: NS IV ONE (08:30)
[2021-09-11] MEDS ORDERED: ACETAMINOPHEN 650MG ER TAB (TYLENOL ARTHRITIS) PO ONE (08:30)
[2021-09-11] MEDS ORDERED: NS 1,000 ML IV SCH (08:30)
[2021-09-11] MEDS ORDERED: methylPREDNISolone 125MG 2ML VIAL IV PRN (08:30)
[2021-09-11] MEDS ORDERED: TOCILIZUMAB IV ONE (08:30)
[2021-09-11] MEDS ORDERED: diphenhydrAMINE 50MG/ML VIAL (J1200) IV PRN (08:30)
[2021-09-11 10:12] VITALS: BP 127/72
== END 2021-09-11 10:15 | disposition home or self-care (01) ==
LOC: M INFU 08:10
PROVIDERS: ATTEND Internal Medicine
DX: M06.9 Rheumatoid arthritis, unspecified (principal); Z88.0 Allergy status to penicillin

== ENCOUNTER → 2021-09-22 | Outpatient (CLI) | payer BC ==
--- NOTE | 2021-09-22 09:40 | REP ---
INDICATION: NUMBNESS OF UPPER EXTREMITY. NO HISTORY OF TRAUMA WHATSOEVER. COMPARISON: 02/23/2013 TECHNIQUE: Seven views FINDINGS: Advanced disc space narrowing has developed at the C5-6 and C6-7 levels with heavy anterior and posterior osteophytic ridging seen particularly at C5-6. Vertebral body height and alignment is essentially unchanged. The facet joints are again seen to be well aligned bilaterally. There is a slight cervical kyphosis status quo. There is evidence of limitation of flexion and extension radiographically. There is evidence of bilateral C5-6 and C6-7 foraminal narrowing which has increased from the prior exam at C5-6 and developed at the C6-7 level since the last exam. Degenerative facet and uncovertebral joint changes are seen bilaterally at every level increased from the prior exam. IMPRESSION: Chronic changes as described above. <Electronically signed by Robel Cantu > 09/22/21 [id number]
== END ==
LOC: M CLY 08:28
PROVIDERS: ATTEND Family Medicine
DX: R20.0 Anesthesia of skin (principal)

== ENCOUNTER → 2021-09-30 | Outpatient (CLI) | payer BC ==
[2021-09-30 15:50] LABS: BASO # 0.1 10^3/uL (0.0-0.2); BASO % 1.2 % (0.0-1.0); EOS # 0.1 10^3/uL (0.0-0.5); EOS % 2.7 % (0.0-3.0); HEMATOCRIT 39.2 % (36.0-47.0); HEMOGLOBIN 12.8 g/dl (12.0-15.5); LYMPH # 1.4 10^3/uL (1.5-5.0); LYMPH % 32.7 % (24.0-44.0); MEAN CORPUSCULAR HEMOGLOBIN 34.6 pg (27.0-33.0); MEAN CORPUSCULAR HGB CONC 32.7 g/dl (32.0-36.5); MEAN CORPUSCULAR VOLUME 105.9 fl (80.0-96.0); MONO # 0.5 10^3/uL (0.0-0.8); MONO % 12.3 % (2.0-8.0); NEUTROPHILS # 2.1 10^3/uL (1.5-8.5); NEUTROPHILS % 50.6 % (36.0-66.0); PLATELET COUNT, AUTOMATED 197 10^3/uL (150-450); WHITE BLOOD COUNT 4.1 10^3/uL (4.0-10.0)
[2021-09-30 16:29] LABS: ALBUMIN 3.4 GM/DL (3.2-5.2); ALT/SGPT 26 U/L (12-78); BILIRUBIN,TOTAL 0.3 MG/DL (0.2-1.0); BLOOD UREA NITROGEN 14 MG/DL (7-18); CALCIUM LEVEL 9.5 MG/DL (8.5-10.1); CARBON DIOXIDE LEVEL 32 MEQ/L (21-32); CHLORIDE LEVEL 102 MEQ/L (98-107); CREATININE FOR GFR 0.94 MG/DL (0.55-1.30); GLOMERULAR FILTRATION RATE > 60.0 (>51); GLUCOSE, FASTING 156 MG/DL (70-100); POTASSIUM SERUM 4.3 MEQ/L (3.5-5.1); SODIUM LEVEL 136 MEQ/L (136-145); TOTAL PROTEIN 6.7 GM/DL (6.4-8.2)
[2021-09-30 16:43] LABS: ERYTHROCYTE SEDIMENTATION RATE 4 mm/hr (0-30)
== END ==
LOC: M WUC 10:49
PROVIDERS: ATTEND Internal Medicine Rheumatology
DX: M06.09 Rheumatoid arthritis without rheumatoid factor, multiple sites (principal)

== ENCOUNTER 2021-10-09 09:59 | Outpatient (CLI) | payer BC ==
[~2021-10-09] VITALS: Ht 165.7 cm; Wt 85.9 kg
[~2021-10-09 09:59] MED LIST changes: +NS IV ONE; +TOCILIZUMAB IV ONE
[2021-10-09] MEDS ORDERED: ALBUTEROL SULFATE 2.5 MG/0.5 ML INH NEB SOLN INH PRN (10:00)
[2021-10-09] MEDS ORDERED: NS 1,000 ML IV SCH (10:00)
[2021-10-09] MEDS ORDERED: TOCILIZUMAB IV ONE (10:00)
[2021-10-09] MEDS ORDERED: NS IV ONE (10:00)
[2021-10-09] MEDS ORDERED: EPINEPHrine INJ 1 MG/ML 1ML AMP IM PRN (10:00)
[2021-10-09] MEDS ORDERED: ACETAMINOPHEN 650MG ER TAB (TYLENOL ARTHRITIS) PO ONE (10:00)
[2021-10-09] MEDS ORDERED: methylPREDNISolone 125MG 2ML VIAL IV PRN (10:00)
[2021-10-09] MEDS ORDERED: diphenhydrAMINE 50MG/ML VIAL (J1200) IV PRN (10:00)
[2021-10-09 10:10] VITALS: BP 139/85
[2021-10-09 11:45] VITALS: BP 117/67
== END 2021-10-09 12:00 | disposition home or self-care (01) ==
LOC: M INFU 09:59
PROVIDERS: ATTEND Internal Medicine Rheumatology
DX: M06.9 Rheumatoid arthritis, unspecified (principal); Z88.0 Allergy status to penicillin; Z88.8 Allergy status to other drugs, medicaments and biological substances

== ENCOUNTER 2021-10-22 08:31 | Outpatient (RCR) | payer BC ==
[~2021-10-22 08:31] MED LIST changes: -MONT10TA10 PO; +MONT10TA97 PO; -NS IV ONE; -TOCILIZUMAB IV ONE
== END 2021-10-28 ==
LOC: M PT 08:31
PROVIDERS: ATTEND Family Medicine
DX: M54.2 Cervicalgia (principal); R20.0 Anesthesia of skin

== ENCOUNTER 2021-11-06 08:13 | Outpatient (CLI) | payer BC ==
[~2021-11-06] VITALS: Ht 165.1 cm; Wt 86.8 kg
[2021-11-06 08:21] VITALS: BP 133/72
[2021-11-06] MEDS ORDERED: ACETAMINOPHEN 650MG ER TAB (TYLENOL ARTHRITIS) PO ONE (08:30)
[2021-11-06] MEDS ORDERED: methylPREDNISolone 125MG 2ML VIAL IV PRN (08:30)
[2021-11-06] MEDS ORDERED: EPINEPHrine INJ 1 MG/ML 1ML AMP IM PRN (08:30)
[2021-11-06] MEDS ORDERED: diphenhydrAMINE 50MG/ML VIAL (J1200) IV PRN (08:30)
[2021-11-06] MEDS ORDERED: NS IV ONE (08:30)
[2021-11-06] MEDS ORDERED: TOCILIZUMAB IV ONE (08:30)
[2021-11-06] MEDS ORDERED: NS 1,000 ML IV SCH (08:30)
[2021-11-06] MEDS ORDERED: ALBUTEROL SULFATE 2.5 MG/0.5 ML INH NEB SOLN INH PRN (08:30)
[2021-11-06 10:12] VITALS: BP 123/72
== END 2021-11-06 10:15 | disposition home or self-care (01) ==
LOC: M INFU 08:13
PROVIDERS: ATTEND Internal Medicine Rheumatology
DX: M06.9 Rheumatoid arthritis, unspecified (principal); Z88.0 Allergy status to penicillin

== ENCOUNTER 2021-11-19 08:00 | Outpatient (RCR) | payer BC ==
[~2021-11-19 08:00] MED LIST changes: +MONT10TA10 PO; -MONT10TA97 PO
== END 2021-11-28 ==
LOC: M PT 08:00
PROVIDERS: ATTEND Family Medicine
DX: M54.2 Cervicalgia (principal); R20.0 Anesthesia of skin

== ENCOUNTER 2021-12-04 08:22 | Outpatient (CLI) | payer BC ==
[~2021-12-04] VITALS: Ht 165.1 cm; Wt 86.8 kg
[~2021-12-04 08:22] MED LIST changes: +ALBUTEROL SULFATE 2.5 MG/0.5 ML INH NEB SOLN INH PRN; +EPINEPHrine INJ 1 MG/ML 1ML AMP IM PRN; -MONT10TA10 PO; +MONT10TA97 PO; +diphenhydrAMINE 50MG/ML VIAL (J1200) IV PRN; +methylPREDNISolone 125MG 2ML VIAL IV PRN
[2021-12-04] MEDS ORDERED: NS 1,000 ML IV SCH (08:30)
[2021-12-04] MEDS ORDERED: ACETAMINOPHEN 650MG ER TAB (TYLENOL ARTHRITIS) PO ONE (08:30)
[2021-12-04] MEDS ORDERED: TOCILIZUMAB IV ONE (08:30)
[2021-12-04] MEDS ORDERED: NS IV ONE (08:30)
[2021-12-04 08:35] VITALS: BP 168/78
[2021-12-04 08:46] VITALS: BP 168/78
[2021-12-04 10:02] VITALS: BP 141/70
== END 2021-12-04 10:00 | disposition home or self-care (01) ==
LOC: M INFU 08:22
PROVIDERS: ATTEND Internal Medicine
DX: M06.9 Rheumatoid arthritis, unspecified (principal); Z88.0 Allergy status to penicillin

== ENCOUNTER 2022-01-01 08:21 | Outpatient (CLI) | payer BC ==
[~2022-01-01] VITALS: Ht 165.1 cm; Wt 85.9 kg
[2022-01-01] MEDS ORDERED: ACETAMINOPHEN 650MG ER TAB (TYLENOL ARTHRITIS) PO ONE (08:50)
[2022-01-01] MEDS ORDERED: NS 1,000 ML IV SCH (08:50)
[2022-01-01 08:52] VITALS: BP 161/78
[2022-01-01] MEDS ORDERED: TOCILIZUMAB IV ONE (09:00)
[2022-01-01] MEDS ORDERED: NS IV ONE (09:00)
[2022-01-01 10:25] VITALS: BP 128/76
== END 2022-01-01 10:35 | disposition home or self-care (01) ==
LOC: M INFU 08:21
PROVIDERS: ATTEND Internal Medicine
DX: M06.9 Rheumatoid arthritis, unspecified (principal); Z88.0 Allergy status to penicillin

== ENCOUNTER → 2022-01-19 | Outpatient (REF) | payer BC ==
[~2022-01-19] MED LIST changes: -ALBUTEROL SULFATE 2.5 MG/0.5 ML INH NEB SOLN INH PRN; -EPINEPHrine INJ 1 MG/ML 1ML AMP IM PRN; -diphenhydrAMINE 50MG/ML VIAL (J1200) IV PRN; -methylPREDNISolone 125MG 2ML VIAL IV PRN
[2022-01-19 11:38] LABS: BASO # 0.1 10^3/uL (0.0-0.2); BASO % 1.5 % (0.0-1.0); EOS # 0.6 10^3/uL (0.0-0.5); EOS % 15.5 % (0.0-3.0); HEMATOCRIT 39.7 % (36.0-47.0); HEMOGLOBIN 12.9 g/dl (12.0-15.5); LYMPH # 1.2 10^3/uL (1.5-5.0); MEAN CORPUSCULAR HEMOGLOBIN 33.7 pg (27.0-33.0); MEAN CORPUSCULAR HGB CONC 32.5 g/dl (32.0-36.5); MEAN CORPUSCULAR VOLUME 103.7 fl (80.0-96.0); MONO # 0.5 10^3/uL (0.0-0.8); MONO % 11.7 % (2.0-8.0); NEUTROPHILS # 1.6 10^3/uL (1.5-8.5); PLATELET COUNT, AUTOMATED 186 10^3/uL (150-450); RED BLOOD COUNT 3.83 10^6/uL (4.00-5.40); WHITE BLOOD COUNT 3.9 10^3/uL (4.0-10.0)
[2022-01-19 12:00] LABS: ERYTHROCYTE SEDIMENTATION RATE 5 mm/hr (0-30)
[2022-01-19 12:17] LABS: ALBUMIN 3.6 GM/DL (3.2-5.2); ALT/SGPT 30 U/L (12-78); BILIRUBIN,TOTAL 0.5 MG/DL (0.2-1.0); BLOOD UREA NITROGEN 16 MG/DL (7-18); CALCIUM LEVEL 9.2 MG/DL (8.5-10.1); CARBON DIOXIDE LEVEL 28 MEQ/L (21-32); CHLORIDE LEVEL 104 MEQ/L (98-107); CREATININE FOR GFR 0.97 MG/DL (0.55-1.30); GLOMERULAR FILTRATION RATE > 60.0 (>51); GLUCOSE, FASTING 213 MG/DL (70-100); POTASSIUM SERUM 4.3 MEQ/L (3.5-5.1); SODIUM LEVEL 139 MEQ/L (136-145); TOTAL PROTEIN 6.9 GM/DL (6.4-8.2)
== END ==
LOC: M SFHCCLAY 08:59
PROVIDERS: ATTEND Internal Medicine Rheumatology
DX: M06.09 Rheumatoid arthritis without rheumatoid factor, multiple sites (principal); Z20.5 Contact with and (suspected) exposure to viral hepatitis; Z79.899 Other long term (current) drug therapy

== ENCOUNTER 2022-01-29 08:32 | Outpatient (CLI) | payer BC ==
[~2022-01-29] VITALS: Ht 165.7 cm; Wt 85.0 kg
[2022-01-29 08:30] VITALS: BP 148/71
[~2022-01-29 08:32] MED LIST changes: +ACETAMINOPHEN 650MG ER TAB (TYLENOL ARTHRITIS) PO ONE; +ALBUTEROL SULFATE 2.5 MG/0.5 ML INH NEB SOLN INH PRN; +EPINEPHrine INJ 1 MG/ML 1ML AMP IM PRN; +NS 1,000 ML IV SCH; +NS IV ONE; +TOCILIZUMAB IV ONE; +diphenhydrAMINE 50MG/ML VIAL (J1200) IV PRN; +methylPREDNISolone 125MG 2ML VIAL IV PRN
[2022-01-29 09:59] VITALS: BP 136/74
== END 2022-01-29 10:00 | disposition home or self-care (01) ==
LOC: M INFU 08:32
PROVIDERS: ATTEND Internal Medicine Rheumatology
DX: M06.9 Rheumatoid arthritis, unspecified (principal); Z88.0 Allergy status to penicillin

== ENCOUNTER 2022-02-26 08:32 | Outpatient (CLI) | payer BC ==
[~2022-02-26] VITALS: Ht 165.1 cm; Wt 85.0 kg
[~2022-02-26 08:32] MED LIST changes: -ACETAMINOPHEN 650MG ER TAB (TYLENOL ARTHRITIS) PO ONE; +ACETAMINOPHEN TAB 650MG DOSE (2X325MG) PO ONE
[2022-02-26 08:35] VITALS: BP 116/66
[2022-02-26] MEDS ORDERED: TOCILIZUMAB IV ONE (08:59)
[2022-02-26] MEDS ORDERED: NS IV ONE (08:59)
[2022-02-26 10:17] VITALS: BP 136/70
== END 2022-02-26 10:17 | disposition home or self-care (01) ==
LOC: M INFU 08:32
PROVIDERS: ATTEND Internal Medicine Rheumatology
DX: M06.9 Rheumatoid arthritis, unspecified (principal); Z88.0 Allergy status to penicillin

== ENCOUNTER 2022-03-26 09:22 | Outpatient (CLI) | payer BC ==
[~2022-03-26] VITALS: Ht 165.1 cm; Wt 85.0 kg
[~2022-03-26 09:22] MED LIST changes: +ACETAMINOPHEN 650MG ER TAB (TYLENOL ARTHRITIS) PO ONE; -ACETAMINOPHEN TAB 650MG DOSE (2X325MG) PO ONE
[2022-03-26 09:45] VITALS: BP 121/70
[2022-03-26 10:48] VITALS: BP 126/76
== END 2022-03-26 10:50 | disposition home or self-care (01) ==
LOC: M INFU 09:22
PROVIDERS: ATTEND Internal Medicine Rheumatology
DX: M06.9 Rheumatoid arthritis, unspecified (principal); Z88.0 Allergy status to penicillin

== ENCOUNTER 2022-04-23 08:35 | Outpatient (CLI) | payer BC ==
[~2022-04-23] VITALS: Ht 165.1 cm; Wt 85.0 kg
[2022-04-23 08:45] VITALS: BP 140/76
[2022-04-23 10:23] VITALS: BP 111/63
== END 2022-04-23 10:30 | disposition home or self-care (01) ==
LOC: M INFU 08:35
PROVIDERS: ATTEND Internal Medicine Rheumatology
DX: M06.9 Rheumatoid arthritis, unspecified (principal); Z88.0 Allergy status to penicillin

== ENCOUNTER 2022-05-21 07:45 | Outpatient (CLI) | payer BC ==
[~2022-05-21] VITALS: Ht 165.1 cm; Wt 85.0 kg
[~2022-05-21 07:45] MED LIST changes: -ACETAMINOPHEN 650MG ER TAB (TYLENOL ARTHRITIS) PO ONE; -NS 1,000 ML IV SCH; -NS IV ONE; -TOCILIZUMAB IV ONE
[2022-05-21 07:52] VITALS: BP 177/85
[2022-05-21] MEDS ORDERED: NS IV ONE (08:00)
[2022-05-21] MEDS ORDERED: ACETAMINOPHEN 650MG ER TAB (TYLENOL ARTHRITIS) PO ONE (08:00)
[2022-05-21] MEDS ORDERED: NS 1,000 ML IV SCH (08:00)
[2022-05-21] MEDS ORDERED: TOCILIZUMAB IV ONE (08:00)
[2022-05-21 09:15] VITALS: BP 128/86
== END 2022-05-21 09:10 | disposition home or self-care (01) ==
LOC: M INFU 07:45
PROVIDERS: ATTEND Internal Medicine Rheumatology
DX: M06.9 Rheumatoid arthritis, unspecified (principal); Z88.0 Allergy status to penicillin; Z88.1 Allergy status to other antibiotic agents

== ENCOUNTER 2022-06-18 08:50 | Outpatient (CLI) | payer BC ==
[~2022-06-18] VITALS: Ht 165.1 cm; Wt 82.7 kg
[2022-06-18 08:00] VITALS: BP 151/85
[~2022-06-18 08:50] MED LIST changes: +ACETAMINOPHEN TAB 650MG DOSE (2X325MG) PO ONE; +NS 1,000 ML IV SCH; +NS IV ONE; +TOCILIZUMAB IV ONE; +[UNRECOGNIZED DRUG - OTHER] IV ONE
[2022-06-18 10:05] VITALS: BP 126/68
== END 2022-06-18 10:05 | disposition home or self-care (01) ==
LOC: M INFU 08:50
PROVIDERS: ATTEND Internal Medicine Rheumatology
DX: M06.9 Rheumatoid arthritis, unspecified (principal); Z88.0 Allergy status to penicillin

== ENCOUNTER 2022-07-16 08:40 | Outpatient (CLI) | payer BC ==
[~2022-07-16] VITALS: Ht 167.6 cm; Wt 85.0 kg
[~2022-07-16 08:40] MED LIST changes: -[UNRECOGNIZED DRUG - OTHER] IV ONE
[2022-07-16 08:53] VITALS: BP 160/74
[2022-07-16 10:04] VITALS: BP 123/64
== END 2022-07-16 10:05 | disposition home or self-care (01) ==
LOC: M INFU 08:40
PROVIDERS: ATTEND Internal Medicine Rheumatology
DX: M06.9 Rheumatoid arthritis, unspecified (principal); Z88.0 Allergy status to penicillin; Z88.8 Allergy status to other drugs, medicaments and biological substances

== ENCOUNTER → 2022-07-21 | Outpatient (CLI) | payer BC ==
[~2022-07-21] MED LIST changes: -ACETAMINOPHEN TAB 650MG DOSE (2X325MG) PO ONE; -ALBUTEROL SULFATE 2.5 MG/0.5 ML INH NEB SOLN INH PRN; -EPINEPHrine INJ 1 MG/ML 1ML AMP IM PRN; -NS 1,000 ML IV SCH; -NS IV ONE; -TOCILIZUMAB IV ONE; -diphenhydrAMINE 50MG/ML VIAL (J1200) IV PRN; -methylPREDNISolone 125MG 2ML VIAL IV PRN
== END ==
LOC: M PLAIMG 09:02
PROVIDERS: ATTEND Family Medicine
DX: M50.30 Other cervical disc degeneration, unspecified cervical region (principal); M48.02 Spinal stenosis, cervical region

== ENCOUNTER 2022-08-13 08:10 | Outpatient (CLI) | payer BC ==
[~2022-08-13] VITALS: Ht 165.7 cm; Wt 88.0 kg
[~2022-08-13 08:10] MED LIST changes: +ACETAMINOPHEN 650MG ER TAB (TYLENOL ARTHRITIS) PO ONE; +ALBUTEROL SULFATE 2.5 MG/0.5 ML INH NEB SOLN INH PRN; +EPINEPHrine INJ 1 MG/ML 1ML AMP IM PRN; +NS 1,000 ML IV SCH; +NS IV ONE; +TOCILIZUMAB IV ONE; +diphenhydrAMINE 50MG/ML VIAL (J1200) IV PRN; +methylPREDNISolone 125MG 2ML VIAL IV PRN
[2022-08-13 08:48] VITALS: BP 187/77
[2022-08-13 09:31] VITALS: BP 135/72
== END 2022-08-13 09:30 | disposition home or self-care (01) ==
LOC: M INFU 08:10
PROVIDERS: ATTEND Internal Medicine Rheumatology
DX: M06.9 Rheumatoid arthritis, unspecified (principal); Z88.0 Allergy status to penicillin; Z88.8 Allergy status to other drugs, medicaments and biological substances

== ENCOUNTER → 2022-08-25 | Outpatient (REF) | payer BC ==
[~2022-08-25] MED LIST changes: -ACETAMINOPHEN 650MG ER TAB (TYLENOL ARTHRITIS) PO ONE; -ALBUTEROL SULFATE 2.5 MG/0.5 ML INH NEB SOLN INH PRN; -EPINEPHrine INJ 1 MG/ML 1ML AMP IM PRN; -NS 1,000 ML IV SCH; -NS IV ONE; -TOCILIZUMAB IV ONE; -diphenhydrAMINE 50MG/ML VIAL (J1200) IV PRN; -methylPREDNISolone 125MG 2ML VIAL IV PRN
[2022-08-25 17:53] LABS: BASO # 0.1 10^3/uL (0.0-0.2); BASO % 1.6 % (0.0-1.0); EOS # 0.5 10^3/uL (0.0-0.5); EOS % 12.1 % (0.0-3.0); HEMATOCRIT 40.6 % (36.0-47.0); HEMOGLOBIN 13.6 g/dl (12.0-15.5); LYMPH # 1.4 10^3/uL (1.5-5.0); LYMPH % 32.9 % (24.0-44.0); MEAN CORPUSCULAR HEMOGLOBIN 34.6 pg (27.0-33.0); MEAN CORPUSCULAR HGB CONC 33.5 g/dl (32.0-36.5); MEAN CORPUSCULAR VOLUME 103.3 fl (80.0-96.0); MONO # 0.9 10^3/uL (0.0-0.8); MONO % 21.3 % (2.0-8.0); NEUTROPHILS # 1.4 10^3/uL (1.5-8.5); NEUTROPHILS % 31.9 % (36.0-66.0); PLATELET COUNT, AUTOMATED 222 10^3/uL (150-450); RED BLOOD COUNT 3.93 10^6/uL (4.00-5.40); WHITE BLOOD COUNT 4.3 10^3/uL (4.0-10.0)
[2022-08-25 17:59] LABS: ALBUMIN 3.6 GM/DL (3.2-5.2); BILIRUBIN,TOTAL 0.6 MG/DL (0.2-1.0); C REACTIVE PROTEIN QUANTITATIV 0.3 MG/DL (0.00-0.30); CALCIUM LEVEL 9.3 MG/DL (8.5-10.1); CREATININE FOR GFR 1.38 MG/DL (0.55-1.30); GLOMERULAR FILTRATION RATE 42.3 (>51); POTASSIUM SERUM 4.3 MEQ/L (3.5-5.1)
[2022-08-25 18:26] LABS: ERYTHROCYTE SEDIMENTATION RATE 5 mm/hr (0-30)
== END ==
LOC: M SFHCCLAY 12:33
PROVIDERS: ATTEND Internal Medicine Rheumatology
DX: M06.09 Rheumatoid arthritis without rheumatoid factor, multiple sites (principal); M89.49 Other hypertrophic osteoarthropathy, multiple sites; Z20.5 Contact with and (suspected) exposure to viral hepatitis; Z79.899 Other long term (current) drug therapy

== ENCOUNTER 2022-09-10 08:25 | Outpatient (CLI) | payer BC ==
[~2022-09-10 08:25] MED LIST changes: +ALBUTEROL SULFATE 2.5 MG/0.5 ML INH NEB SOLN INH PRN; +EPINEPHrine INJ 1 MG/ML 1ML AMP IM PRN; +diphenhydrAMINE 50MG/ML VIAL (J1200) IV PRN; +methylPREDNISolone 125MG 2ML VIAL IV PRN
[2022-09-10] MEDS ORDERED: NS IV ONE (08:30)
[2022-09-10] MEDS ORDERED: TOCILIZUMAB IV ONE (08:30)
[2022-09-10] MEDS ORDERED: NS 1,000 ML IV SCH (08:30)
[2022-09-10] MEDS ORDERED: ACETAMINOPHEN 650MG ER TAB (TYLENOL ARTHRITIS) PO ONE (08:30)
[2022-09-10 08:35] VITALS: BP 143/76
[2022-09-10 10:10] VITALS: BP 136/83
== END 2022-09-10 10:15 | disposition home or self-care (01) ==
LOC: M INFU 08:25
PROVIDERS: ATTEND Internal Medicine Rheumatology
DX: M06.9 Rheumatoid arthritis, unspecified (principal); Z88.0 Allergy status to penicillin; Z88.8 Allergy status to other drugs, medicaments and biological substances

== ENCOUNTER → 2022-09-28 | Outpatient (CLI) | payer BC ==
[~2022-09-28] MED LIST changes: -ALBUTEROL SULFATE 2.5 MG/0.5 ML INH NEB SOLN INH PRN; -EPINEPHrine INJ 1 MG/ML 1ML AMP IM PRN; -diphenhydrAMINE 50MG/ML VIAL (J1200) IV PRN; -methylPREDNISolone 125MG 2ML VIAL IV PRN
== END ==
LOC: M WHC 09:09
PROVIDERS: ATTEND Nurse Practitioner Family
DX: Z12.31 Encounter for screening mammogram for malignant neoplasm of breast (principal)

== ENCOUNTER 2022-10-08 08:55 | Outpatient (CLI) | payer BC ==
[~2022-10-08] VITALS: Ht 165.1 cm; Wt 88.0 kg
[~2022-10-08 08:55] MED LIST changes: +ACETAMINOPHEN 650MG ER TAB (TYLENOL ARTHRITIS) PO ONE; +ALBUTEROL SULFATE 2.5 MG/0.5 ML INH NEB SOLN INH PRN; +EPINEPHrine INJ 1 MG/ML 1ML AMP IM PRN; +NS 1,000 ML IV SCH; +NS IV ONE; +TOCILIZUMAB IV ONE; +diphenhydrAMINE 50MG/ML VIAL IV PRN; +methylPREDNISolone 125MG 2ML VIAL IV PRN
[2022-10-08 09:04] VITALS: BP 176/73
[2022-10-08 10:34] VITALS: BP 127/82
== END 2022-10-08 10:35 | disposition home or self-care (01) ==
LOC: M INFU 08:55
PROVIDERS: ATTEND Internal Medicine Rheumatology
DX: M06.9 Rheumatoid arthritis, unspecified (principal); Z88.0 Allergy status to penicillin; Z88.7 Allergy status to serum and vaccine

== ENCOUNTER → 2022-10-29 | Outpatient (REF) | payer BC ==
[~2022-10-29] MED LIST changes: -ACETAMINOPHEN 650MG ER TAB (TYLENOL ARTHRITIS) PO ONE; -ALBUTEROL SULFATE 2.5 MG/0.5 ML INH NEB SOLN INH PRN; -EPINEPHrine INJ 1 MG/ML 1ML AMP IM PRN; -NS 1,000 ML IV SCH; -NS IV ONE; -TOCILIZUMAB IV ONE; -diphenhydrAMINE 50MG/ML VIAL IV PRN; -methylPREDNISolone 125MG 2ML VIAL IV PRN
[2022-10-29 18:05] LABS: BASO # 0.1 10^3/uL (0.0-0.2); BASO % 0.9 % (0.0-1.0); EOS # 0.8 10^3/uL (0.0-0.5); EOS % 13.7 % (0.0-3.0); HEMATOCRIT 38.6 % (36.0-47.0); HEMOGLOBIN 12.7 g/dl (12.0-15.5); LYMPH # 1.4 10^3/uL (1.5-5.0); MEAN CORPUSCULAR HEMOGLOBIN 35.2 pg (27.0-33.0); MEAN CORPUSCULAR HGB CONC 32.9 g/dl (32.0-36.5); MEAN CORPUSCULAR VOLUME 106.9 fl (80.0-96.0); MONO # 0.5 10^3/uL (0.0-0.8); MONO % 8.7 % (2.0-8.0); NEUTROPHILS # 2.9 10^3/uL (1.5-8.5); NEUTROPHILS % 51.3 % (36.0-66.0); PLATELET COUNT, AUTOMATED 183 10^3/uL (150-450); RED BLOOD COUNT 3.61 10^6/uL (4.00-5.40); WHITE BLOOD COUNT 5.6 10^3/uL (4.0-10.0)
[2022-10-29 18:17] LABS: ALBUMIN 3.7 G/DL (3.2-5.2); BILIRUBIN,TOTAL 0.5 MG/DL (0.3-1.2); CALCIUM LEVEL 9.3 MG/DL (8.5-10.1); CREATININE FOR GFR 1.03 MG/DL (0.55-1.30); POTASSIUM SERUM 4.2 MMOL/L (3.5-5.1); TOTAL PROTEIN 6.4 G/DL (5.7-8.2)
== END ==
LOC: M LABDRAWC 16:47
PROVIDERS: ATTEND Allergy & Immunology Allergy
DX: D83.9 Common variable immunodeficiency, unspecified (principal)

== ENCOUNTER 2022-11-05 08:35 | Outpatient (CLI) | payer BC ==
[~2022-11-05] VITALS: Ht 165.1 cm; Wt 88.0 kg
[~2022-11-05 08:35] MED LIST changes: +ACETAMINOPHEN 650MG ER TAB (TYLENOL ARTHRITIS) PO ONE; +ALBUTEROL SULFATE 2.5 MG/0.5 ML INH NEB SOLN INH PRN; +EPINEPHrine INJ 1 MG/ML 1ML AMP IM PRN; +NS 1,000 ML IV SCH; +NS IV ONE; +TOCILIZUMAB IV ONE; +diphenhydrAMINE 50MG/ML VIAL IV PRN; +methylPREDNISolone 125MG 2ML VIAL IV PRN
[2022-11-05 08:48] VITALS: BP 166/71
[2022-11-05 10:17] VITALS: BP 128/74
== END 2022-11-05 10:20 | disposition home or self-care (01) ==
LOC: M INFU 08:35
PROVIDERS: ATTEND Internal Medicine Rheumatology
DX: M06.9 Rheumatoid arthritis, unspecified (principal); Z88.0 Allergy status to penicillin; Z88.8 Allergy status to other drugs, medicaments and biological substances

== ENCOUNTER 2022-12-03 08:50 | Outpatient (CLI) | payer BC ==
[~2022-12-03] VITALS: Ht 165.1 cm; Wt 88.0 kg
[~2022-12-03 08:50] MED LIST changes: -ALBUTEROL SULFATE 2.5 MG/0.5 ML INH NEB SOLN INH PRN; +ALBUTEROL SULFATE 2.5MG/0.5ML INH NEB SOLN INH PRN
[2022-12-03 09:21] VITALS: BP 164/83
[2022-12-03 10:18] VITALS: BP 140/76
== END 2022-12-03 10:25 | disposition home or self-care (01) ==
LOC: M INFU 08:50
PROVIDERS: ATTEND Internal Medicine Rheumatology
DX: M06.9 Rheumatoid arthritis, unspecified (principal); Z88.0 Allergy status to penicillin; Z88.7 Allergy status to serum and vaccine

== ENCOUNTER 2022-12-31 08:50 | Outpatient (CLI) | payer BC ==
[~2022-12-31] VITALS: Ht 165.1 cm; Wt 88.0 kg
[2022-12-31 08:58] VITALS: BP 149/73
[2022-12-31 10:20] VITALS: BP 149/73
== END 2022-12-31 10:20 | disposition home or self-care (01) ==
LOC: M INFU 08:50
PROVIDERS: ATTEND Internal Medicine Rheumatology
DX: M06.9 Rheumatoid arthritis, unspecified (principal); Z88.0 Allergy status to penicillin; Z88.8 Allergy status to other drugs, medicaments and biological substances

== ENCOUNTER 2023-01-28 08:30 | Outpatient (CLI) | payer BC ==
[~2023-01-28] VITALS: Ht 160 cm; Wt 86.0 kg
[~2023-01-28 08:30] MED LIST changes: +ACETAMINOPHEN 650MG ER TAB (TYLENOL ARTHRITIS) PO ONE; +ALBUTEROL SULFATE 2.5MG/0.5ML INH NEB SOLN INH PRN; +EPINEPHrine INJ 1 MG/ML 1ML AMP IM PRN; +NS 1,000 ML IV SCH; +NS IV ONE; +TOCILIZUMAB IV ONE; +diphenhydrAMINE 50MG/ML VIAL IV PRN; +methylPREDNISolone 125MG 2ML VIAL IV PRN
[2023-01-28 08:37] VITALS: BP 153/77
[2023-01-28 10:21] VITALS: BP 147/75
== END 2023-01-28 10:20 | disposition home or self-care (01) ==
LOC: M INFU 08:30
PROVIDERS: ATTEND Internal Medicine Rheumatology
DX: M06.9 Rheumatoid arthritis, unspecified (principal); Z88.0 Allergy status to penicillin; Z88.8 Allergy status to other drugs, medicaments and biological substances

== ENCOUNTER → 2023-01-28 | Outpatient (CLI) | payer BC ==
[~2023-01-28] MED LIST changes: -ACETAMINOPHEN 650MG ER TAB (TYLENOL ARTHRITIS) PO ONE; -ALBUTEROL SULFATE 2.5MG/0.5ML INH NEB SOLN INH PRN; -EPINEPHrine INJ 1 MG/ML 1ML AMP IM PRN; -NS 1,000 ML IV SCH; -NS IV ONE; -TOCILIZUMAB IV ONE; -diphenhydrAMINE 50MG/ML VIAL IV PRN; -methylPREDNISolone 125MG 2ML VIAL IV PRN
[2023-01-28 14:48] LABS: BASO # 0.1 10^3/uL (0.0-0.2); BASO % 1.4 % (0.0-1.0); EOS # 0.7 10^3/uL (0.0-0.5); EOS % 14.3 % (0.0-3.0); HEMATOCRIT 37.8 % (36.0-47.0); HEMOGLOBIN 12.5 g/dl (12.0-15.5); LYMPH # 1.4 10^3/uL (1.5-5.0); LYMPH % 27.3 % (24.0-44.0); MEAN CORPUSCULAR HEMOGLOBIN 34.9 pg (27.0-33.0); MEAN CORPUSCULAR HGB CONC 33.1 g/dl (32.0-36.5); MEAN CORPUSCULAR VOLUME 105.6 fl (80.0-96.0); MONO # 0.6 10^3/uL (0.0-0.8); MONO % 11.9 % (2.0-8.0); NEUTROPHILS # 2.2 10^3/uL (1.5-8.5); NEUTROPHILS % 44.9 % (36.0-66.0); PLATELET COUNT, AUTOMATED 205 10^3/uL (150-450); RED BLOOD COUNT 3.58 10^6/uL (4.00-5.40)
[2023-01-28 15:20] LABS: C REACTIVE PROTEIN QUANTITATIV < 0.40 MG/DL (<1.0)
[2023-01-28 15:21] LABS: ALBUMIN 3.7 G/DL (3.2-5.2); ALKALINE PHOSPHATASE 122 U/L (46-116); ALT/SGPT 29 U/L (7.0-40); AST/SGOT 27 U/L (<34); BILIRUBIN,TOTAL 0.5 MG/DL (0.3-1.2); BLOOD UREA NITROGEN 10 MG/DL (9-23); CARBON DIOXIDE LEVEL 31 MMOL/L (20-31); CHLORIDE LEVEL 103 MMOL/L (98-107); CREATININE FOR GFR 0.79 MG/DL (0.55-1.30); GLOMERULAR FILTRATION RATE > 60.0 (>51); GLUCOSE, FASTING 199 MG/DL (60-100); POTASSIUM SERUM 4.3 MMOL/L (3.5-5.1); SODIUM LEVEL 139 MMOL/L (136-145); TOTAL PROTEIN 6.6 G/DL (5.7-8.2)
[2023-01-28 15:28] LABS: ERYTHROCYTE SEDIMENTATION RATE 3 mm/hr (0-30)
[2023-01-29 20:07] LABS: HBV HBV DNA not detected IU/mL (.)
== END ==
LOC: M WUC 11:07
PROVIDERS: ATTEND Internal Medicine Rheumatology
DX: M06.09 Rheumatoid arthritis without rheumatoid factor, multiple sites (principal); M89.49 Other hypertrophic osteoarthropathy, multiple sites; Z20.5 Contact with and (suspected) exposure to viral hepatitis; Z79.899 Other long term (current) drug therapy

== ENCOUNTER → 2023-02-18 | Outpatient (REF) | payer BC ==
[~2023-02-18] MED LIST changes: -ACETAMINOPHEN 650MG ER TAB (TYLENOL ARTHRITIS) PO ONE; -ALBUTEROL SULFATE 2.5MG/0.5ML INH NEB SOLN INH PRN; -EPINEPHrine INJ 1 MG/ML 1ML AMP IM PRN; -NS 1,000 ML IV SCH; -NS IV ONE; -TOCILIZUMAB IV ONE; -diphenhydrAMINE 50MG/ML VIAL IV PRN; -methylPREDNISolone 125MG 2ML VIAL IV PRN
[2023-02-18 19:17] LABS: BASO # 0.1 10^3/uL (0.0-0.2); BASO % 1.2 % (0.0-1.0); EOS % 19.4 % (0.0-3.0); HEMOGLOBIN 12.7 g/dl (12.0-15.5); LYMPH # 1.3 10^3/uL (1.5-5.0); LYMPH % 27.1 % (24.0-44.0); MEAN CORPUSCULAR HEMOGLOBIN 34.7 pg (27.0-33.0); MEAN CORPUSCULAR HGB CONC 32.6 g/dl (32.0-36.5); MEAN CORPUSCULAR VOLUME 106.6 fl (80.0-96.0); MONO # 0.5 10^3/uL (0.0-0.8); MONO % 10.2 % (2.0-8.0); NEUTROPHILS # 2.1 10^3/uL (1.5-8.5); NEUTROPHILS % 41.9 % (36.0-66.0); PLATELET COUNT, AUTOMATED 192 10^3/uL (150-450); RED BLOOD COUNT 3.66 10^6/uL (4.00-5.40); WHITE BLOOD COUNT 4.9 10^3/uL (4.0-10.0)
== END ==
LOC: M LABDRAWC 16:52
PROVIDERS: ATTEND Allergy & Immunology Allergy
DX: D72.10 Eosinophilia, unspecified (principal)

== ENCOUNTER 2023-02-25 08:44 | Outpatient (CLI) | payer BC ==
[~2023-02-25 08:44] MED LIST changes: +ACETAMINOPHEN 650MG ER TAB (TYLENOL ARTHRITIS) PO ONE; +ALBUTEROL SULFATE 2.5MG/0.5ML INH NEB SOLN INH PRN; +EPINEPHrine INJ 1 MG/ML 1ML AMP IM PRN; +NS 1,000 ML IV SCH; +NS IV ONE; +TOCILIZUMAB IV ONE; +diphenhydrAMINE 50MG/ML VIAL IV PRN; +methylPREDNISolone 125MG 2ML VIAL IV PRN
[2023-02-25 09:30] VITALS: BP 171/85
[2023-02-25 10:08] VITALS: BP 132/66
== END 2023-02-25 10:10 | disposition home or self-care (01) ==
LOC: M INFU 08:44
PROVIDERS: ATTEND Internal Medicine Rheumatology
DX: M06.9 Rheumatoid arthritis, unspecified (principal); Z88.0 Allergy status to penicillin; Z88.8 Allergy status to other drugs, medicaments and biological substances

== ENCOUNTER → 2023-03-25 | Outpatient (CLI) | payer BC ==
[~2023-03-25] VITALS: Ht 160 cm; Wt 86.0 kg
[2023-03-25 08:25] VITALS: BP 138/78
[2023-03-25 10:30] VITALS: BP 134/66
== END ==
LOC: M INFU 08:25
PROVIDERS: ATTEND Internal Medicine Rheumatology
DX: M06.9 Rheumatoid arthritis, unspecified (principal); Z88.0 Allergy status to penicillin; Z88.8 Allergy status to other drugs, medicaments and biological substances

== ENCOUNTER 2023-04-22 07:43 | Outpatient (CLI) | payer BC ==
[~2023-04-22] VITALS: Ht 158.1 cm; Wt 85.9 kg
[2023-04-22] VITALS (8 sets, daily range): BP systolic 121–149; BP diastolic 71–88
[~2023-04-22 07:43] MED LIST changes: +ALBUTEROL SULFATE 2.5MG/0.5ML INH NEB SOLN INH PRN; +EPINEPHrine INJ 1 MG/ML 1ML AMP IM PRN; +diphenhydrAMINE 50MG/ML VIAL IV PRN; +methylPREDNISolone 125MG 2ML VIAL IV PRN
[2023-04-22] MEDS ORDERED: TOCILIZUMAB IV ONE (08:30)
[2023-04-22] MEDS ORDERED: NS 1,000 ML IV SCH (08:30)
[2023-04-22] MEDS ORDERED: NS IV ONE (08:30)
[2023-04-22] MEDS ORDERED: ACETAMINOPHEN 650MG ER TAB (TYLENOL ARTHRITIS) PO ONE (08:30)
[2023-04-22 08:35] LABS: BASO # 0.1 10^3/uL (0.0-0.2); BASO % 1.8 % (0.0-1.0); EOS # 0.8 10^3/uL (0.0-0.5); HEMOGLOBIN 12.3 g/dl (12.0-15.5); MEAN CORPUSCULAR HEMOGLOBIN 34.1 pg (27.0-33.0); MEAN CORPUSCULAR HGB CONC 32.4 g/dl (32.0-36.5); MEAN CORPUSCULAR VOLUME 105.3 fl (80.0-96.0); MONO # 0.3 10^3/uL (0.0-0.8); MONO % 10.2 % (2.0-8.0); NEUTROPHILS # 1.1 10^3/uL (1.5-8.5); NEUTROPHILS % 33.2 % (36.0-66.0); PLATELET COUNT, AUTOMATED 163 10^3/uL (150-450); RED BLOOD COUNT 3.61 10^6/uL (4.00-5.40); WHITE BLOOD COUNT 3.3 10^3/uL (4.0-10.0)
[2023-04-22 08:54] LABS: C REACTIVE PROTEIN QUANTITATIV < 0.40 MG/DL (<1.0)
[2023-04-22 08:56] LABS: ALBUMIN 3.5 G/DL (3.2-5.2); ALKALINE PHOSPHATASE 83 U/L (46-116); ALT/SGPT 36 U/L (7.0-40); AST/SGOT 30 U/L (<34); BILIRUBIN,TOTAL 0.6 MG/DL (0.3-1.2); BLOOD UREA NITROGEN 20 MG/DL (9-23); CALCIUM LEVEL 8.6 MG/DL (8.5-10.1); CARBON DIOXIDE LEVEL 30 MMOL/L (20-31); CHLORIDE LEVEL 103 MMOL/L (98-107); CREATININE FOR GFR 0.74 MG/DL (0.55-1.30); GLOMERULAR FILTRATION RATE > 60.0 (>51); GLUCOSE, FASTING 201 MG/DL (60-100); POTASSIUM SERUM 3.9 MMOL/L (3.5-5.1); SODIUM LEVEL 139 MMOL/L (136-145); TOTAL PROTEIN 6.2 G/DL (5.7-8.2)
[2023-04-22 09:30] LABS: EOS % 23.5 % (0.0-3.0)
[2023-04-22 16:03] LABS: ERYTHROCYTE SEDIMENTATION RATE 2 mm/hr (0-30)
== END 2023-04-22 10:50 ==
LOC: M INFU 07:43
PROVIDERS: ATTEND Internal Medicine Rheumatology
DX: M06.9 Rheumatoid arthritis, unspecified (principal); Z88.0 Allergy status to penicillin; Z88.8 Allergy status to other drugs, medicaments and biological substances

== ENCOUNTER → 2023-04-22 | Outpatient (CLI) | payer BC ==
[~2023-04-22] MED LIST changes: -ACETAMINOPHEN 650MG ER TAB (TYLENOL ARTHRITIS) PO ONE; -ALBUTEROL SULFATE 2.5MG/0.5ML INH NEB SOLN INH PRN; -EPINEPHrine INJ 1 MG/ML 1ML AMP IM PRN; -NS 1,000 ML IV SCH; -NS IV ONE; -TOCILIZUMAB IV ONE; -diphenhydrAMINE 50MG/ML VIAL IV PRN; -methylPREDNISolone 125MG 2ML VIAL IV PRN
[2023-04-22 08:36] LABS: BASO # 0.1 10^3/uL (0.0-0.2); BASO % 1.8 % (0.0-1.0); EOS # 0.8 10^3/uL (0.0-0.5); HEMATOCRIT 38.2 % (36.0-47.0); HEMOGLOBIN 12.7 g/dl (12.0-15.5); LYMPH % 28.9 % (24.0-44.0); MEAN CORPUSCULAR HEMOGLOBIN 34.6 pg (27.0-33.0); MEAN CORPUSCULAR HGB CONC 33.2 g/dl (32.0-36.5); MEAN CORPUSCULAR VOLUME 104.1 fl (80.0-96.0); MONO # 0.4 10^3/uL (0.0-0.8); MONO % 11.1 % (2.0-8.0); NEUTROPHILS # 1.2 10^3/uL (1.5-8.5); NEUTROPHILS % 33.6 % (36.0-66.0); PLATELET COUNT, AUTOMATED 161 10^3/uL (150-450); RED BLOOD COUNT 3.67 10^6/uL (4.00-5.40); WHITE BLOOD COUNT 3.4 10^3/uL (4.0-10.0)
[2023-04-22 08:55] LABS: ALBUMIN 3.5 G/DL (3.2-5.2); ALKALINE PHOSPHATASE 85 U/L (46-116); ALT/SGPT 36 U/L (7.0-40); AST/SGOT 32 U/L (<34); BILIRUBIN,TOTAL 0.6 MG/DL (0.3-1.2); BLOOD UREA NITROGEN 18 MG/DL (9-23); CALCIUM LEVEL 9.1 MG/DL (8.5-10.1); CARBON DIOXIDE LEVEL 30 MMOL/L (20-31); CHLORIDE LEVEL 105 MMOL/L (98-107); CHOLESTEROL LEVEL 187 MG/DL (<200); CHOLESTEROL RISK RATIO 1.87 (<5); CREATININE FOR GFR 0.71 MG/DL (0.55-1.30); GLOMERULAR FILTRATION RATE > 60.0 (>51); GLUCOSE, FASTING 198 MG/DL (60-100); HDL CHOLESTEROL 99.8 MG/DL (>40); LDL CHOLESTEROL 70.4 MG/DL (<100); NON-HDL-C 87.2 MG/DL; POTASSIUM SERUM 3.9 MMOL/L (3.5-5.1); SODIUM LEVEL 139 MMOL/L (136-145); TOTAL PROTEIN 6.2 G/DL (5.7-8.2); TRIGLYCERIDES LEVEL 84 MG/DL (<150)
[2023-04-22 08:57] LABS: THYROID STIMULATING HORMONE 0.771 uIU/ML (0.55-4.78)
[2023-04-22 08:58] LABS: TOTAL 25(OH) VITAMIN D 75.8 NG/ML (20.0-100.0); VITAMIN B12 LEVEL 1024 PG/ML (211-911)
[2023-04-22 09:31] LABS: EOS % 24.3 % (0.0-3.0)
[2023-04-22 10:02] LABS: CREATININE, URINE 19.6 MG/DL; MALB URINE SIEMENS < 3.0 MG/L; MAU/CREAT RATIO 15.3 MCG/MG (0.0-30.0)
== END ==
LOC: M LAB 07:49
PROVIDERS: ATTEND Internal Medicine Endocrinology, Diabetes & Metabolism
DX: Z96.41 Presence of insulin pump (external) (internal) (principal); E10.65 Type 1 diabetes mellitus with hyperglycemia; E03.8 Other specified hypothyroidism; E06.3 Autoimmune thyroiditis; E78.5 Hyperlipidemia, unspecified; E10.3293 Type 1 diabetes mellitus with mild nonproliferative diabetic retinopathy without macular edema, bilateral; Z79.4 Long term (current) use of insulin

== ENCOUNTER → 2023-05-13 | Outpatient (REF) | payer BC ==
[~2023-05-13] MED LIST changes: -ALBUTEROL SULFATE 2.5MG/0.5ML INH NEB SOLN INH PRN; -EPINEPHrine INJ 1 MG/ML 1ML AMP IM PRN; -diphenhydrAMINE 50MG/ML VIAL IV PRN; -methylPREDNISolone 125MG 2ML VIAL IV PRN
== END ==
LOC: M SFHCRHEU 11:31
PROVIDERS: ATTEND Internal Medicine Rheumatology
DX: Z53.9 Procedure and treatment not carried out, unspecified reason (principal); M06.09 Rheumatoid arthritis without rheumatoid factor, multiple sites; M89.49 Other hypertrophic osteoarthropathy, multiple sites; Z20.5 Contact with and (suspected) exposure to viral hepatitis; Z79.899 Other long term (current) drug therapy; R79.89 Other specified abnormal findings of blood chemistry; M79.641 Pain in right hand

== ENCOUNTER 2023-05-20 08:36 | Outpatient (CLI) | payer BC ==
[~2023-05-20] VITALS: Ht 160 cm; Wt 86.0 kg
[~2023-05-20 08:36] MED LIST changes: +ACETAMINOPHEN 650MG ER TAB (TYLENOL ARTHRITIS) PO ONE; +ALBUTEROL SULFATE 2.5MG/0.5ML INH NEB SOLN INH PRN; +EPINEPHrine INJ 1 MG/ML 1ML AMP IM PRN; +NS 1,000 ML IV SCH; +NS IV ONE; +TOCILIZUMAB IV ONE; +diphenhydrAMINE 50MG/ML VIAL IV PRN; +methylPREDNISolone 125MG 2ML VIAL IV PRN
[2023-05-20 08:45] VITALS: BP 185/97; O2SAT 98
[2023-05-20 10:00] VITALS: BP 144/81; O2SAT 97
== END 2023-05-20 10:00 | disposition home or self-care (01) ==
LOC: M INFU 08:36
PROVIDERS: ATTEND Internal Medicine Rheumatology
DX: M06.9 Rheumatoid arthritis, unspecified (principal); M89.49 Other hypertrophic osteoarthropathy, multiple sites; R79.89 Other specified abnormal findings of blood chemistry; M79.641 Pain in right hand; Z20.5 Contact with and (suspected) exposure to viral hepatitis; Z79.899 Other long term (current) drug therapy

== ENCOUNTER 2023-06-17 08:35 | Outpatient (CLI) | payer BC ==
[~2023-06-17] VITALS: Ht 160 cm; Wt 86.0 kg
[2023-06-17 08:52] VITALS: BP 174/81; O2SAT 96
[2023-06-17 10:03] VITALS: BP 138/75; O2SAT 95
== END 2023-06-17 10:15 | disposition home or self-care (01) ==
LOC: M INFU 08:35
PROVIDERS: ATTEND Internal Medicine Rheumatology
DX: M05.9 Rheumatoid arthritis with rheumatoid factor, unspecified (principal); Z88.0 Allergy status to penicillin; Z88.8 Allergy status to other drugs, medicaments and biological substances

== ENCOUNTER → 2023-06-30 | Outpatient (CLI) | payer BC ==
[~2023-06-30] MED LIST changes: -ACETAMINOPHEN 650MG ER TAB (TYLENOL ARTHRITIS) PO ONE; -ALBUTEROL SULFATE 2.5MG/0.5ML INH NEB SOLN INH PRN; -EPINEPHrine INJ 1 MG/ML 1ML AMP IM PRN; -NS 1,000 ML IV SCH; -NS IV ONE; -TOCILIZUMAB IV ONE; -diphenhydrAMINE 50MG/ML VIAL IV PRN; -methylPREDNISolone 125MG 2ML VIAL IV PRN
[2023-06-30 17:14] LABS: BASO # 0.1 10^3/uL (0.0-0.2); BASO % 1.5 % (0.0-1.0); EOS # 0.6 10^3/uL (0.0-0.5); EOS % 12.6 % (0.0-3.0); HEMATOCRIT 39.2 % (36.0-47.0); HEMOGLOBIN 12.7 g/dl (12.0-15.5); LYMPH # 1.5 10^3/uL (1.5-5.0); LYMPH % 32.8 % (24.0-44.0); MEAN CORPUSCULAR HEMOGLOBIN 34.4 pg (27.0-33.0); MEAN CORPUSCULAR HGB CONC 32.4 g/dl (32.0-36.5); MEAN CORPUSCULAR VOLUME 106.2 fl (80.0-96.0); MONO # 0.6 10^3/uL (0.0-0.8); MONO % 12.4 % (2.0-8.0); NEUTROPHILS # 1.9 10^3/uL (1.5-8.5); NEUTROPHILS % 40.5 % (36.0-66.0); PLATELET COUNT, AUTOMATED 181 10^3/uL (150-450); RED BLOOD COUNT 3.69 10^6/uL (4.00-5.40); WHITE BLOOD COUNT 4.7 10^3/uL (4.0-10.0)
== END ==
LOC: M WUC 12:35
PROVIDERS: ATTEND Allergy & Immunology Allergy
DX: D83.9 Common variable immunodeficiency, unspecified (principal)

== ENCOUNTER → 2023-06-30 | Outpatient (CLI) | payer BC ==
[2023-06-30 17:14] LABS: BASO # 0.1 10^3/uL (0.0-0.2); BASO % 1.3 % (0.0-1.0); EOS # 0.6 10^3/uL (0.0-0.5); EOS % 14.1 % (0.0-3.0); HEMATOCRIT 40.1 % (36.0-47.0); HEMOGLOBIN 12.9 g/dl (12.0-15.5); LYMPH # 1.5 10^3/uL (1.5-5.0); MEAN CORPUSCULAR HEMOGLOBIN 34.6 pg (27.0-33.0); MEAN CORPUSCULAR HGB CONC 32.2 g/dl (32.0-36.5); MEAN CORPUSCULAR VOLUME 107.5 fl (80.0-96.0); MONO # 0.5 10^3/uL (0.0-0.8); MONO % 11.4 % (2.0-8.0); NEUTROPHILS # 1.8 10^3/uL (1.5-8.5); NEUTROPHILS % 39.8 % (36.0-66.0); PLATELET COUNT, AUTOMATED 169 10^3/uL (150-450); RED BLOOD COUNT 3.73 10^6/uL (4.00-5.40); WHITE BLOOD COUNT 4.6 10^3/uL (4.0-10.0)
== END ==
LOC: M WUC 12:39
PROVIDERS: ATTEND Internal Medicine Rheumatology
DX: M06.09 Rheumatoid arthritis without rheumatoid factor, multiple sites (principal); M89.49 Other hypertrophic osteoarthropathy, multiple sites; R79.89 Other specified abnormal findings of blood chemistry; M79.641 Pain in right hand; Z20.5 Contact with and (suspected) exposure to viral hepatitis; Z79.899 Other long term (current) drug therapy

== ENCOUNTER 2023-07-15 09:50 | Outpatient (CLI) | payer BC ==
[~2023-07-15] VITALS: Ht 162.6 cm; Wt 83.6 kg
[2023-07-15 09:50] VITALS: BP 139/71; O2SAT 95
[~2023-07-15 09:50] MED LIST changes: +ALBUTEROL SULFATE 2.5MG/0.5ML INH NEB SOLN INH PRN; +EPINEPHrine INJ 1 MG/ML 1ML AMP IM PRN; +diphenhydrAMINE 50MG/ML VIAL IV PRN; +methylPREDNISolone 125MG 2ML VIAL IV PRN
[2023-07-15] MEDS ORDERED: NS 1,000 ML IV SCH (10:30)
[2023-07-15] MEDS ORDERED: NS IV ONE (10:30)
[2023-07-15] MEDS ORDERED: ACETAMINOPHEN 650MG ER TAB (TYLENOL ARTHRITIS) PO ONE (10:30)
[2023-07-15] MEDS ORDERED: TOCILIZUMAB IV ONE (10:30)
[2023-07-15 11:30] VITALS: BP 156/81; TEMP 36.6; O2SAT 96
== END 2023-07-15 11:30 | disposition home or self-care (01) ==
LOC: M INFU 09:50
PROVIDERS: ATTEND Internal Medicine Rheumatology
DX: M06.9 Rheumatoid arthritis, unspecified (principal); Z88.0 Allergy status to penicillin; Z88.8 Allergy status to other drugs, medicaments and biological substances

== ENCOUNTER → 2023-07-28 | Outpatient (REF) | payer BC ==
[~2023-07-28] MED LIST changes: -ALBUTEROL SULFATE 2.5MG/0.5ML INH NEB SOLN INH PRN; -EPINEPHrine INJ 1 MG/ML 1ML AMP IM PRN; -diphenhydrAMINE 50MG/ML VIAL IV PRN; -methylPREDNISolone 125MG 2ML VIAL IV PRN
== END ==
LOC: M LAB REF 17:14
PROVIDERS: ATTEND Otolaryngology
DX: J32.0 Chronic maxillary sinusitis (principal); J31.0 Chronic rhinitis; J34.89 Other specified disorders of nose and nasal sinuses

== ENCOUNTER 2023-08-12 08:47 | Outpatient (CLI) | payer BC ==
[~2023-08-12] VITALS: Ht 167.6 cm; Wt 80.9 kg
[~2023-08-12 08:47] MED LIST changes: +ALBUTEROL SULFATE 2.5MG/0.5ML INH NEB SOLN INH PRN; +EPINEPHrine INJ 1 MG/ML 1ML AMP IM PRN; +diphenhydrAMINE 50MG/ML VIAL IV PRN; +methylPREDNISolone 125MG 2ML VIAL IV PRN
[2023-08-12] MEDS ORDERED: TOCILIZUMAB IV ONE (09:00)
[2023-08-12] MEDS ORDERED: NS IV ONE (09:00)
[2023-08-12] MEDS ORDERED: NS 1,000 ML IV SCH (09:00)
[2023-08-12] MEDS ORDERED: ACETAMINOPHEN 650MG ER TAB (TYLENOL ARTHRITIS) PO ONE (09:00)
[2023-08-12 09:04] VITALS: BP 188/84; TEMP 97.6; O2SAT 97
[2023-08-12 10:44] VITALS: BP 179/84; O2SAT 97
== END 2023-08-12 10:45 ==
LOC: M INFU 08:47
PROVIDERS: ATTEND Internal Medicine Rheumatology
DX: M06.9 Rheumatoid arthritis, unspecified (principal); Z88.0 Allergy status to penicillin; Z88.8 Allergy status to other drugs, medicaments and biological substances

== ENCOUNTER → 2023-08-12 | Outpatient (REF) | payer BC ==
[2023-08-12 19:18] LABS: BASO # 0.1 10^3/uL (0.0-0.2); BASO % 0.7 % (0.0-1.0); EOS # 1.1 10^3/uL (0.0-0.5); HEMATOCRIT 36.9 % (36.0-47.0); LYMPH # 1.5 10^3/uL (1.5-5.0); LYMPH % 19.5 % (24.0-44.0); MEAN CORPUSCULAR HEMOGLOBIN 35.1 pg (27.0-33.0); MEAN CORPUSCULAR HGB CONC 32.5 g/dl (32.0-36.5); MEAN CORPUSCULAR VOLUME 107.9 fl (80.0-96.0); MONO # 0.8 10^3/uL (0.0-0.8); MONO % 9.9 % (2.0-8.0); NEUTROPHILS # 4.2 10^3/uL (1.5-8.5); NEUTROPHILS % 55.6 % (36.0-66.0); PLATELET COUNT, AUTOMATED 140 10^3/uL (150-450); RED BLOOD COUNT 3.42 10^6/uL (4.00-5.40); WHITE BLOOD COUNT 7.6 10^3/uL (4.0-10.0)
[2023-08-12 19:41] LABS: C REACTIVE PROTEIN QUANTITATIV < 0.40 MG/DL (<1.0)
[2023-08-12 19:43] LABS: ALBUMIN 3.3 G/DL (3.2-5.2); ALKALINE PHOSPHATASE 91 U/L (46-116); ALT/SGPT 26 U/L (7.0-40); AST/SGOT 17 U/L (<34); BILIRUBIN,TOTAL 0.3 MG/DL (0.3-1.2); BLOOD UREA NITROGEN 19 MG/DL (9-23); CALCIUM LEVEL 8.8 MG/DL (8.5-10.1); CARBON DIOXIDE LEVEL 31 MMOL/L (20-31); CHLORIDE LEVEL 102 MMOL/L (98-107); CREATININE FOR GFR 0.83 MG/DL (0.55-1.30); GLOMERULAR FILTRATION RATE > 60.0 (>51); GLUCOSE, FASTING 134 MG/DL (60-100); POTASSIUM SERUM 4.1 MMOL/L (3.5-5.1); SODIUM LEVEL 140 MMOL/L (136-145); TOTAL PROTEIN 6.2 G/DL (5.7-8.2)
[2023-08-12 20:01] LABS: ERYTHROCYTE SEDIMENTATION RATE 17 mm/hr (0-30)
== END ==
LOC: M WUC 16:18
PROVIDERS: ATTEND Internal Medicine Rheumatology
DX: M06.09 Rheumatoid arthritis without rheumatoid factor, multiple sites (principal); M89.49 Other hypertrophic osteoarthropathy, multiple sites; Z20.5 Contact with and (suspected) exposure to viral hepatitis; R79.89 Other specified abnormal findings of blood chemistry; M79.641 Pain in right hand

== ENCOUNTER 2023-09-09 09:30 | Outpatient (CLI) | payer BC ==
[~2023-09-09] VITALS: Ht 165.1 cm; Wt 81.1 kg
[~2023-09-09 09:30] MED LIST changes: +ACETAMINOPHEN 650MG ER TAB (TYLENOL ARTHRITIS) PO ONE; +NS 1,000 ML IV SCH
[2023-09-09 09:35] VITALS: BP 155/75; TEMP 97.9; O2SAT 98
[2023-09-09] MEDS ORDERED: TOCILIZUMAB IV ONE (10:00)
[2023-09-09] MEDS ORDERED: NS IV ONE (10:00)
[2023-09-09 11:12] VITALS: BP 159/84; O2SAT 97
== END 2023-09-09 11:15 | disposition home or self-care (01) ==
LOC: M INFU 09:30
PROVIDERS: ATTEND Internal Medicine Rheumatology
DX: M06.9 Rheumatoid arthritis, unspecified (principal); Z88.0 Allergy status to penicillin; Z88.8 Allergy status to other drugs, medicaments and biological substances

== ENCOUNTER 2023-10-07 08:11 | Outpatient (CLI) | payer BC ==
[~2023-10-07] VITALS: Ht 175.3 cm; Wt 81.3 kg
[~2023-10-07 08:11] MED LIST changes: -ACETAMINOPHEN 650MG ER TAB (TYLENOL ARTHRITIS) PO ONE; -NS 1,000 ML IV SCH
[2023-10-07] MEDS ORDERED: TOCILIZUMAB IV ONE (08:30)
[2023-10-07] MEDS ORDERED: NS 1,000 ML IV SCH (08:30)
[2023-10-07] MEDS ORDERED: ACETAMINOPHEN 650MG ER TAB (TYLENOL ARTHRITIS) PO ONE (08:30)
[2023-10-07] MEDS ORDERED: NS IV ONE (08:30)
[2023-10-07 08:34] VITALS: BP 162/79; O2SAT 99
[2023-10-07 10:30] VITALS: BP 170/80; O2SAT 99
== END 2023-10-07 10:30 ==
LOC: M INFU 08:11
PROVIDERS: ATTEND Internal Medicine Rheumatology
DX: M06.9 Rheumatoid arthritis, unspecified (principal); Z88.0 Allergy status to penicillin; Z88.8 Allergy status to other drugs, medicaments and biological substances

== ENCOUNTER 2023-11-04 09:22 | Outpatient (CLI) | payer BC ==
[~2023-11-04] VITALS: Ht 162.6 cm; Wt 79.0 kg
[~2023-11-04 09:22] MED LIST changes: +ACETAMINOPHEN TAB 650MG DOSE (2X325MG) PO ONE; +ALBUTEROL SULFATE 2.5MG/0.5ML INH NEB SOLN INH PRN; +EPINEPHrine INJ 1 MG/ML 1ML AMP IM PRN; +NS 1,000 ML IV SCH; +NS IV ONE; +TOCILIZUMAB IV ONE; +diphenhydrAMINE 50MG/ML VIAL IV PRN; +methylPREDNISolone 125MG 2ML VIAL IV PRN
[2023-11-04 09:27] VITALS: BP_SYST 149; BP_SYST 197; BP_DIAS 69; BP_DIAS 93; O2SAT 98; O2SAT 99
[2023-11-04 10:48] VITALS: BP 164/99; O2SAT 99
== END 2023-11-04 10:48 | disposition home or self-care (01) ==
LOC: M INFU 09:22
PROVIDERS: ATTEND Internal Medicine Rheumatology
DX: M06.9 Rheumatoid arthritis, unspecified (principal); Z88.0 Allergy status to penicillin; Z88.8 Allergy status to other drugs, medicaments and biological substances

== ENCOUNTER → 2023-11-04 | Outpatient (CLI) | payer BC ==
[~2023-11-04] MED LIST changes: -ALBUTEROL SULFATE 2.5MG/0.5ML INH NEB SOLN INH PRN; -EPINEPHrine INJ 1 MG/ML 1ML AMP IM PRN; -diphenhydrAMINE 50MG/ML VIAL IV PRN; -methylPREDNISolone 125MG 2ML VIAL IV PRN
== END ==
LOC: M PLAIMG 13:43
PROVIDERS: ATTEND Otolaryngology
DX: J32.0 Chronic maxillary sinusitis (principal); J31.0 Chronic rhinitis

== ENCOUNTER 2023-12-02 08:38 | Outpatient (CLI) | payer BC ==
[~2023-12-02] VITALS: Ht 162.6 cm; Wt 83.0 kg
[~2023-12-02 08:38] MED LIST changes: +ACETAMINOPHEN 650MG ER TAB (TYLENOL ARTHRITIS) PO ONE; +ALBUTEROL SULFATE 2.5MG/0.5ML INH NEB SOLN INH PRN; +EPINEPHrine INJ 1 MG/ML 1ML AMP IM PRN; +NS 1,000 ML IV SCH; +NS IV ONE; +TOCILIZUMAB IV ONE; +diphenhydrAMINE 50MG/ML VIAL IV PRN; +methylPREDNISolone 125MG 2ML VIAL IV PRN
[2023-12-02 08:40] VITALS: BP 177/78; O2SAT 97
[2023-12-02 10:55] VITALS: BP 130/69; O2SAT 98
== END 2023-12-02 10:55 | disposition home or self-care (01) ==
LOC: M INFU 08:38
PROVIDERS: ATTEND Internal Medicine Rheumatology
DX: M06.9 Rheumatoid arthritis, unspecified (principal); Z88.0 Allergy status to penicillin; Z88.8 Allergy status to other drugs, medicaments and biological substances

== ENCOUNTER → 2023-12-02 | Outpatient (CLI) | payer BC ==
[~2023-12-02] MED LIST changes: -ACETAMINOPHEN TAB 650MG DOSE (2X325MG) PO ONE; -ALBUTEROL SULFATE 2.5MG/0.5ML INH NEB SOLN INH PRN; -EPINEPHrine INJ 1 MG/ML 1ML AMP IM PRN; -NS 1,000 ML IV SCH; -NS IV ONE; -TOCILIZUMAB IV ONE; -diphenhydrAMINE 50MG/ML VIAL IV PRN; -methylPREDNISolone 125MG 2ML VIAL IV PRN
[2023-12-02 17:16] LABS: BASO # 0.1 10^3/uL (0.0-0.2); BASO % 1.6 % (0.0-1.0); EOS # 0.8 10^3/uL (0.0-0.5); HEMATOCRIT 40.8 % (36.0-47.0); HEMOGLOBIN 13.5 g/dl (12.0-15.5); LYMPH # 1.8 10^3/uL (1.5-5.0); LYMPH % 32.1 % (24.0-44.0); MEAN CORPUSCULAR HEMOGLOBIN 35.2 pg (27.0-33.0); MEAN CORPUSCULAR HGB CONC 33.1 g/dl (32.0-36.5); MEAN CORPUSCULAR VOLUME 106.3 fl (80.0-96.0); MONO # 0.5 10^3/uL (0.0-0.8); MONO % 9.3 % (2.0-8.0); NEUTROPHILS # 2.4 10^3/uL (1.5-8.5); NEUTROPHILS % 42.8 % (36.0-66.0); PLATELET COUNT, AUTOMATED 195 10^3/uL (150-450); RED BLOOD COUNT 3.84 10^6/uL (4.00-5.40); WHITE BLOOD COUNT 5.6 10^3/uL (4.0-10.0)
[2023-12-02 17:27] LABS: ERYTHROCYTE SEDIMENTATION RATE 7 mm/hr (0-30)
[2023-12-02 17:40] LABS: C REACTIVE PROTEIN QUANTITATIV < 0.40 MG/DL (<1.0)
[2023-12-02 17:41] LABS: ALBUMIN 3.4 G/DL (3.2-5.2); ALKALINE PHOSPHATASE 99 U/L (46-116); ALT/SGPT 27 U/L (7.0-40); AST/SGOT 23 U/L (<34); BILIRUBIN,TOTAL 0.4 MG/DL (0.3-1.2); BLOOD UREA NITROGEN 19 MG/DL (9-23); CALCIUM LEVEL 8.9 MG/DL (8.5-10.1); CARBON DIOXIDE LEVEL 32 MMOL/L (20-31); CHLORIDE LEVEL 102 MMOL/L (98-107); CREATININE FOR GFR 0.77 MG/DL (0.55-1.30); GLOMERULAR FILTRATION RATE > 60.0 (>51); GLUCOSE, FASTING 229 MG/DL (60-100); SODIUM LEVEL 136 MMOL/L (136-145); TOTAL PROTEIN 6.4 G/DL (5.7-8.2)
== END ==
LOC: M WUC 11:10
PROVIDERS: ATTEND Internal Medicine Rheumatology
DX: M06.09 Rheumatoid arthritis without rheumatoid factor, multiple sites (principal); M89.49 Other hypertrophic osteoarthropathy, multiple sites; M79.641 Pain in right hand; R79.89 Other specified abnormal findings of blood chemistry; Z20.5 Contact with and (suspected) exposure to viral hepatitis; Z79.899 Other long term (current) drug therapy

== ENCOUNTER 2023-12-30 08:45 | Outpatient (CLI) | payer BC ==
[~2023-12-30] VITALS: Ht 162.6 cm; Wt 77.7 kg
[2023-12-30 08:45] VITALS: BP 105/59; O2SAT 94
[2023-12-30 10:40] VITALS: BP 136/69; TEMP 36.2; O2SAT 99
== END 2023-12-30 10:40 ==
LOC: M INFU 08:45
PROVIDERS: ATTEND Internal Medicine Rheumatology
DX: M06.09 Rheumatoid arthritis without rheumatoid factor, multiple sites (principal); Z88.0 Allergy status to penicillin; Z88.8 Allergy status to other drugs, medicaments and biological substances

== ENCOUNTER 2024-01-27 08:15 | Outpatient (CLI) | payer BC ==
[~2024-01-27] VITALS: Ht 165.1 cm; Wt 83.1 kg
[2024-01-27 08:30] VITALS: BP 154/74; TEMP 98.4; O2SAT 100
[2024-01-27] MEDS ORDERED: NS 1,000 ML IV SCH ×2 (08:30)
[2024-01-27] MEDS: ACETAMINOPHEN 650MG ER TAB (TYLENOL ARTHRITIS) PO ONE (08:36)
[2024-01-27] MEDS: [UNRECOGNIZED DRUG - OTHER] IV ONE (09:02)
[2024-01-27 10:01] VITALS: BP 140/83; TEMP 98.2; O2SAT 98
== END 2024-01-27 10:05 ==
LOC: M INFU 08:15
PROVIDERS: ATTEND Internal Medicine Rheumatology
DX: M06.09 Rheumatoid arthritis without rheumatoid factor, multiple sites (principal); Z88.0 Allergy status to penicillin; Z88.8 Allergy status to other drugs, medicaments and biological substances

== ENCOUNTER → 2024-01-27 | Outpatient (CLI) | payer BC ==
[~2024-01-27] MED LIST changes: -ACETAMINOPHEN 650MG ER TAB (TYLENOL ARTHRITIS) PO ONE; -ALBUTEROL SULFATE 2.5MG/0.5ML INH NEB SOLN INH PRN; +ASCO500C3 PO; -EPINEPHrine INJ 1 MG/ML 1ML AMP IM PRN; +LOSA50TA28 PO; -NS 1,000 ML IV SCH; -NS IV ONE; +PREG25CA PO; +THERTAB52 PO; -TOCILIZUMAB IV ONE; +VITA-243 PO; +XANA0.5T PO; +ZINC100T3 PO; +[UNRECOGNIZED DRUG - CODE]; -diphenhydrAMINE 50MG/ML VIAL IV PRN; -methylPREDNISolone 125MG 2ML VIAL IV PRN
== END ==
LOC: M EKG 07:57
PROVIDERS: ATTEND Anesthesiology
DX: I10 Essential (primary) hypertension (principal); E11.9 Type 2 diabetes mellitus without complications

== ENCOUNTER 2024-02-03 08:55 | Day surgery (SDC) | payer BC ==
[~2024-02-03] VITALS: Ht 165.1 cm; Wt 84.5 kg
[2024-02-03] MEDS: LR 1,000 ML IV SCH (11:08)
[2024-02-03] MEDS ORDERED: GLUCOSE 4GM CHEW TABLET PO PRN (11:10)
[2024-02-03] MEDS ORDERED: GLUCAGON INJ 1MG VIAL SC PRN (11:10)
[2024-02-03] MEDS ORDERED: INSULIN LISPRO (NovoLOG) PER UNIT SC PRN (11:10)
[2024-02-03] MEDS ORDERED: DEXTROSE 50% 50ML SYRINGE IV PRN (11:10)
[2024-02-03] MEDS ORDERED: D5W 250 ML IV SCH (11:30)
[2024-02-03] MEDS ORDERED: SODIUM CHLORIDE 0.9% NASAL GEL 15GM (AYR) As Ordered ONE (11:59)
[2024-02-03] MEDS: METHYLENE BLUE 0.5% (5MG/ML) 10 ML AMP (PROVAYBLUE) As Ordered ONE (12:34)
[2024-02-03] MEDS: EPINEPHrine 1MG/ML INJ 30ML MD-VIAL As Ordered ONE (12:34)
[2024-02-03] MEDS: LIDOCAINE W/EPINEPHRINE 1% 20ML VIAL As Ordered ONE (12:55)
[2024-02-03] MEDS: BACITRACIN OINTMENT 30GM TUBE As Ordered ONE (13:47)
[2024-02-03] MEDS ORDERED: dexmedeTOMIDine (4MCG/ML)200MCG/50ML BTL (PRECEDEX) As Ordered ONE (14:07)
[2024-02-03] MEDS ORDERED: ONDANSETRON 4MG 2ML VIAL As Ordered ONE (14:07)
[2024-02-03] MEDS ORDERED: MIDAZOLAM INJ 2MG/2ML VIAL As Ordered ONE (14:07)
[2024-02-03] MEDS ORDERED: METOCLOPRAMIDE INJ 10MG/2ML VIAL As Ordered ONE (14:07)
[2024-02-03] MEDS ORDERED: SUGAMMADEX SODIUM 500 MG/5 ML VIAL (BRIDION) As Ordered ONE (14:07)
[2024-02-03] MEDS ORDERED: propofoL 200 MG/20 ML VIAL As Ordered ONE (14:07)
[2024-02-03] MEDS ORDERED: LIDOCAINE 2% 100MG/5ML SDV (FOR ANES.) As Ordered ONE (14:07)
[2024-02-03] MEDS ORDERED: fentaNYL 250 MCG/5 ML INJECTION As Ordered ONE (14:07)
[2024-02-03] MEDS ORDERED: ePHEDrine SULFATE 25 MG/5 ML(5MG/ML) SYRINGE As Ordered ONE (14:07)
[2024-02-03] MEDS ORDERED: ACETAMINOPHEN 1000MG 100ML IV BAG As Ordered ONE (14:07)
[2024-02-03] MEDS ORDERED: PHENYLephrine 500MCG 5ML (100MCG/ML) SYRINGE As Ordered ONE (14:07)
[2024-02-03] MEDS ORDERED: ROCURONIUM BROMIDE 50MG/5ML VIAL As Ordered ONE (14:07)
[2024-02-03] MEDS ORDERED: LR 1,000 ML IV SCH (14:15)
[2024-02-03] MEDS ORDERED: ONDANSETRON 4MG 2ML VIAL IV PRN (14:15)
[2024-02-03] MEDS ORDERED: MEPERIDINE 25 MG/ML 1ML VIAL IV PRN (14:15)
[2024-02-03] MEDS ORDERED: METOCLOPRAMIDE INJ 10MG/2ML VIAL IV PRN (14:15)
[2024-02-03] MEDS ORDERED: diphenhydrAMINE 50MG/ML VIAL IV PRN (14:15)
[2024-02-03] MEDS ORDERED: fentaNYL 100 MCG/2 ML INJECTION IV PRN (14:15)
[2024-02-03] MEDS: oxyCODONE 5MG TAB PO PRN (14:47)
[2024-02-03 15:25] VITALS: BP 133/74; TEMP 97.3; O2SAT 98
== END 2024-02-03 15:30 | disposition home or self-care (01) ==
LOC: M SDC 08:55
PROVIDERS: ATTEND Otolaryngology
DX: J31.0 Chronic rhinitis (principal); J34.89 Other specified disorders of nose and nasal sinuses; J34.2 Deviated nasal septum; B95.7 Other staphylococcus as the cause of diseases classified elsewhere; E10.9 Type 1 diabetes mellitus without complications; Z79.899 Other long term (current) drug therapy
CPT/HCPCS: 30560; 31237; 61782; 87070; 87075; 87077; 87186; 87205; 88305; J0131; J0171; J1100; J2250; J2371; J2405; J2765; J3010; Q9968

== ENCOUNTER → 2024-02-10 | Outpatient (REF) | payer BC ==
[2024-02-10 20:32] LABS: ALBUMIN 3.9 G/DL (3.2-5.2); ALKALINE PHOSPHATASE 79 U/L (46-116); ALT/SGPT 27 U/L (7.0-40); AST/SGOT 20 U/L (<34); BILIRUBIN,TOTAL 0.5 MG/DL (0.3-1.2); BLOOD UREA NITROGEN 16 MG/DL (9-23); CALCIUM LEVEL 9.4 MG/DL (8.5-10.1); CARBON DIOXIDE LEVEL 32 MMOL/L (20-31); CHLORIDE LEVEL 106 MMOL/L (98-107); CREATININE FOR GFR 0.87 MG/DL (0.55-1.30); GLOMERULAR FILTRATION RATE > 60.0 (>51); GLUCOSE, FASTING 37 MG/DL (60-100); POTASSIUM SERUM 3.9 MMOL/L (3.5-5.1); SODIUM LEVEL 141 MMOL/L (136-145); TOTAL PROTEIN 6.7 G/DL (5.7-8.2)
== END ==
LOC: M SFHCCLAY 11:12
PROVIDERS: ATTEND Family Medicine
DX: I10 Essential (primary) hypertension (principal)

== ENCOUNTER → 2024-02-10 | Outpatient (REF) | payer BC ==
[2024-02-10 18:49] LABS: BASO # 0.1 10^3/uL (0.0-0.2); BASO % 1.5 % (0.0-1.0); EOS # 0.4 10^3/uL (0.0-0.5); EOS % 10.9 % (0.0-3.0); HEMATOCRIT 40.7 % (36.0-47.0); HEMOGLOBIN 13.4 g/dl (12.0-15.5); LYMPH # 1.5 10^3/uL (1.5-5.0); LYMPH % 37.6 % (24.0-44.0); MEAN CORPUSCULAR HEMOGLOBIN 33.8 pg (27.0-33.0); MEAN CORPUSCULAR HGB CONC 32.9 g/dl (32.0-36.5); MEAN CORPUSCULAR VOLUME 102.5 fl (80.0-96.0); MONO # 0.6 10^3/uL (0.0-0.8); MONO % 13.7 % (2.0-8.0); NEUTROPHILS # 1.5 10^3/uL (1.5-8.5); NEUTROPHILS % 36.1 % (36.0-66.0); PLATELET COUNT, AUTOMATED 174 10^3/uL (150-450); RED BLOOD COUNT 3.97 10^6/uL (4.00-5.40)
== END ==
LOC: M LABDRAWC 17:18
PROVIDERS: ATTEND Allergy & Immunology Allergy
DX: D83.9 Common variable immunodeficiency, unspecified (principal)

== ENCOUNTER → 2024-02-23 | Outpatient (REF) | payer BC | LOC: M LAB REF 17:06 | PROVIDERS: ATTEND Physician Assistant Medical | DX: J31.0 Chronic rhinitis (principal) ==

== ENCOUNTER 2024-02-24 09:06 | Outpatient (CLI) | payer BC ==
[~2024-02-24] VITALS: Ht 165.1 cm; Wt 65.2 kg
[~2024-02-24 09:06] MED LIST changes: +ALBUTEROL SULFATE 2.5MG/0.5ML INH NEB SOLN INH PRN; +EPINEPHrine INJ 1 MG/ML 1ML AMP IM PRN; +NS 1,000 ML IV SCH; +diphenhydrAMINE 50MG/ML VIAL IV PRN; +methylPREDNISolone 125MG 2ML VIAL IV PRN
[2024-02-24 09:10] VITALS: BP 136/68; TEMP 98; O2SAT 97
[2024-02-24] MEDS: ACETAMINOPHEN 650MG ER TAB (TYLENOL ARTHRITIS) PO ONE (09:33)
[2024-02-24] MEDS: [UNRECOGNIZED DRUG - OTHER] IV ONE (09:39)
[2024-02-24 10:45] VITALS: BP 124/70; TEMP 98.8; O2SAT 99
== END 2024-02-24 10:50 | disposition home or self-care (01) ==
LOC: M INFU 09:06
PROVIDERS: ATTEND Internal Medicine Rheumatology
DX: M06.09 Rheumatoid arthritis without rheumatoid factor, multiple sites (principal); Z88.0 Allergy status to penicillin; Z88.8 Allergy status to other drugs, medicaments and biological substances

== ENCOUNTER → 2024-03-10 | Outpatient (CLI) | payer BC ==
[~2024-03-10] MED LIST changes: -ALBUTEROL SULFATE 2.5MG/0.5ML INH NEB SOLN INH PRN; -EPINEPHrine INJ 1 MG/ML 1ML AMP IM PRN; -NS 1,000 ML IV SCH; -diphenhydrAMINE 50MG/ML VIAL IV PRN; -methylPREDNISolone 125MG 2ML VIAL IV PRN
== END ==
LOC: M CARPUL 08:32
PROVIDERS: ATTEND Family Medicine
DX: R60.0 Localized edema (principal); I10 Essential (primary) hypertension; I08.0 Rheumatic disorders of both mitral and aortic valves; I77.819 Aortic ectasia, unspecified site

== ENCOUNTER 2024-03-23 08:29 | Outpatient (CLI) | payer BC ==
[~2024-03-23] VITALS: Ht 165.1 cm; Wt 81.2 kg
[~2024-03-23 08:29] MED LIST changes: +ALBUTEROL SULFATE 2.5MG/0.5ML INH NEB SOLN INH PRN; +EPINEPHrine INJ 1 MG/ML 1ML AMP IM PRN; +NS 1,000 ML IV SCH; +diphenhydrAMINE 50MG/ML VIAL IV PRN; +methylPREDNISolone 125MG 2ML VIAL IV PRN
[2024-03-23 08:30] VITALS: BP 186/89; O2SAT 97
[2024-03-23] MEDS: ACETAMINOPHEN 650MG ER TAB (TYLENOL ARTHRITIS) PO ONE (08:38)
[2024-03-23] MEDS: NS IV ONE (09:02)
[2024-03-23] MEDS: TOCILIZUMAB IV ONE (09:02)
[2024-03-23 10:00] VITALS: BP 128/70; O2SAT 98
== END 2024-03-23 10:05 ==
LOC: M INFU 08:29
PROVIDERS: ATTEND Internal Medicine Rheumatology
DX: M06.09 Rheumatoid arthritis without rheumatoid factor, multiple sites (principal); Z88.0 Allergy status to penicillin; Z88.8 Allergy status to other drugs, medicaments and biological substances

== ENCOUNTER → 2024-03-23 | Outpatient (REF) | payer BC | LOC: M SFHCRHEU 12:11 | PROVIDERS: ATTEND Internal Medicine Rheumatology | DX: M06.09 Rheumatoid arthritis without rheumatoid factor, multiple sites (principal); M89.49 Other hypertrophic osteoarthropathy, multiple sites; Z20.5 Contact with and (suspected) exposure to viral hepatitis; Z79.899 Other long term (current) drug therapy; R79.89 Other specified abnormal findings of blood chemistry; M79.641 Pain in right hand ==

== ENCOUNTER 2024-04-20 09:23 | Outpatient (CLI) | payer BC ==
[~2024-04-20] VITALS: Ht 165.1 cm; Wt 65.0 kg
[~2024-04-20 09:23] MED LIST changes: +VITA90CA4; -[UNRECOGNIZED DRUG - CODE]
[2024-04-20 09:30] VITALS: BP 152/68; O2SAT 97
[2024-04-20] MEDS: ACETAMINOPHEN 650MG ER TAB (TYLENOL ARTHRITIS) PO ONE (09:37)
[2024-04-20] MEDS: TOCILIZUMAB IV ONE (09:49)
[2024-04-20] MEDS: NS IV ONE (09:49)
[2024-04-20 10:50] VITALS: BP 154/70; O2SAT 95
== END 2024-04-20 10:53 ==
LOC: M INFU 09:23
PROVIDERS: ATTEND Internal Medicine Rheumatology
DX: M06.09 Rheumatoid arthritis without rheumatoid factor, multiple sites (principal); Z88.0 Allergy status to penicillin; Z88.8 Allergy status to other drugs, medicaments and biological substances

== ENCOUNTER 2024-05-18 08:40 | Outpatient (CLI) | payer BC ==
[~2024-05-18] VITALS: Ht 165.1 cm; Wt 81.3 kg
[~2024-05-18 08:40] MED LIST changes: -AZEL0.055; +AZEL1SPR4; -NS 1,000 ML IV SCH
[2024-05-18] MEDS: ACETAMINOPHEN 650MG ER TAB (TYLENOL ARTHRITIS) PO ONE (08:58)
[2024-05-18 09:00] VITALS: BP 163/77; O2SAT 96
[2024-05-18] MEDS ORDERED: NS 1,000 ML IV SCH (09:00)
[2024-05-18] MEDS: NS IV ONE (09:34)
[2024-05-18] MEDS: TOCILIZUMAB IV ONE (09:34)
[2024-05-18 10:38] VITALS: BP 158/76; O2SAT 97
== END 2024-05-18 10:40 ==
LOC: M INFU 08:40
PROVIDERS: ATTEND Internal Medicine Rheumatology
DX: M06.09 Rheumatoid arthritis without rheumatoid factor, multiple sites (principal); Z88.0 Allergy status to penicillin; Z88.8 Allergy status to other drugs, medicaments and biological substances

== ENCOUNTER 2024-06-15 08:30 | Outpatient (CLI) | payer BC ==
[~2024-06-15] VITALS: Ht 165.1 cm; Wt 78.6 kg
[2024-06-15 08:30] VITALS: BP 155/79; O2SAT 97
[~2024-06-15 08:30] MED LIST changes: +ALBUTEROL SULFATE 2.5MG/0.5ML INH NEB SOLN INH PRN; +EPINEPHrine INJ 1 MG/ML 1ML AMP IM PRN; +NS 1,000 ML IV SCH; +diphenhydrAMINE 50MG/ML VIAL IV PRN; +methylPREDNISolone 125MG 2ML VIAL IV PRN
[2024-06-15] MEDS: ACETAMINOPHEN 650MG ER TAB (TYLENOL ARTHRITIS) PO ONE (09:00)
[2024-06-15] MEDS: NS IV ONE (09:12)
[2024-06-15] MEDS: TOCILIZUMAB IV ONE (09:12)
[2024-06-15 10:10] VITALS: BP 157/79; O2SAT 97
[2024-06-15] MEDS ORDERED: TOCILIZUMAB IV ONE ×5 (14:00→15:00)
[2024-06-15] MEDS ORDERED: NS IV ONE ×5 (14:00→15:00)
== END 2024-06-15 10:10 ==
LOC: M INFU 08:30
PROVIDERS: ATTEND Internal Medicine Rheumatology
DX: M06.9 Rheumatoid arthritis, unspecified (principal); Z88.0 Allergy status to penicillin; Z88.8 Allergy status to other drugs, medicaments and biological substances
CPT/HCPCS: 96365; J3262

== ENCOUNTER → 2024-06-15 | Outpatient (CLI) | payer BC ==
[~2024-06-15] MED LIST changes: -ALBUTEROL SULFATE 2.5MG/0.5ML INH NEB SOLN INH PRN; -EPINEPHrine INJ 1 MG/ML 1ML AMP IM PRN; -diphenhydrAMINE 50MG/ML VIAL IV PRN; -methylPREDNISolone 125MG 2ML VIAL IV PRN
[2024-06-15 17:36] LABS: BASO # 0.1 10^3/uL (0.0-0.2); BASO % 1.3 % (0.0-1.0); EOS # 1.2 10^3/uL (0.0-0.5); HEMATOCRIT 38.3 % (36.0-47.0); HEMOGLOBIN 12.8 g/dl (12.0-15.5); LYMPH # 1.5 10^3/uL (1.5-5.0); LYMPH % 28.7 % (24.0-44.0); MEAN CORPUSCULAR HGB CONC 33.4 g/dl (32.0-36.5); MEAN CORPUSCULAR VOLUME 104.6 fl (80.0-96.0); MONO # 0.6 10^3/uL (0.0-0.8); MONO % 10.6 % (2.0-8.0); NEUTROPHILS # 1.9 10^3/uL (1.5-8.5); NEUTROPHILS % 36.4 % (36.0-66.0); PLATELET COUNT, AUTOMATED 161 10^3/uL (150-450); RED BLOOD COUNT 3.66 10^6/uL (4.00-5.40); WHITE BLOOD COUNT 5.3 10^3/uL (4.0-10.0)
[2024-06-15 17:53] LABS: APPEARANCE, URINE CLEAR (CLEAR); BACTERIA, URINE AUTO NEGATIVE (NEGATIVE); BILIRUBIN, URINE AUTO NEGATIVE (NEGATIVE); BLOOD, URINE BLOOD NEGATIVE (NEGATIVE); COLOR, URINE YELLOW (YELLOW); GLUCOSE, URINE (UA) AUTO NEGATIVE (NEGATIVE); KETONE, URINE AUTO NEGATIVE (NEGATIVE); LEUKOCYTE ESTERASE, URINE AUTO NEGATIVE (NEGATIVE); NITRITE, URINE AUTO NEGATIVE (NEGATIVE); PROTEIN, URINE AUTO NEGATIVE (NEGATIVE); RBC, URINE AUTO 0 /HPF (0-3); SPECIFIC GRAVITY URINE AUTO 1.023 (1.002-1.035); SQUAMOUS EPITHELIAL CELL UR AU 0 /HPF (0-6); UROBILINOGEN, URINE AUTO 0.2 mg/dL (0.0-2.0); WBC, URINE AUTO 0 /HPF (0-3)
[2024-06-15 18:11] LABS: TOTAL 25(OH) VITAMIN D 69.9 NG/ML (20.0-100.0)
[2024-06-15 18:12] LABS: VITAMIN B12 LEVEL 1100 PG/ML (211-911)
[2024-06-15 18:13] LABS: THYROID STIMULATING HORMONE 1.312 uIU/ML (0.55-4.78)
[2024-06-15 18:16] LABS: ALBUMIN 3.5 G/DL (3.2-5.2); ALKALINE PHOSPHATASE 83 U/L (46-116); ALT/SGPT 28 U/L (7.0-40); AST/SGOT 21 U/L (<34); BILIRUBIN,TOTAL 0.5 MG/DL (0.3-1.2); BLOOD UREA NITROGEN 17 MG/DL (9-23); CALCIUM LEVEL 9.4 MG/DL (8.5-10.1); CARBON DIOXIDE LEVEL 30 MMOL/L (20-31); CHLORIDE LEVEL 105 MMOL/L (98-107); CHOLESTEROL LEVEL 204 MG/DL (<200); CHOLESTEROL RISK RATIO 1.89 (<5); CREATININE FOR GFR 0.78 MG/DL (0.55-1.30); GLOMERULAR FILTRATION RATE > 60.0 (>51); GLUCOSE, FASTING 147 MG/DL (60-100); HDL CHOLESTEROL 107.9 MG/DL (>40); LDL CHOLESTEROL 84.9 MG/DL (<100); NON-HDL-C 96.1 MG/DL; POTASSIUM SERUM 4.3 MMOL/L (3.5-5.1); SODIUM LEVEL 139 MMOL/L (136-145); TOTAL PROTEIN 6.2 G/DL (5.7-8.2); TRIGLYCERIDES LEVEL 56 MG/DL (<150)
[2024-06-15 18:19] LABS: CREATININE, URINE 109.1 MG/DL
[2024-06-15 18:21] LABS: EOS % 22.8 % (0.0-3.0)
[2024-06-15 18:23] LABS: MAU/CREAT RATIO 3.6 MCG/MG (0.0-30.0)
== END ==
LOC: M WUC 10:54
PROVIDERS: ATTEND Internal Medicine Endocrinology, Diabetes & Metabolism
DX: E10.65 Type 1 diabetes mellitus with hyperglycemia (principal); Z79.4 Long term (current) use of insulin; M85.851 Other specified disorders of bone density and structure, right thigh; M85.852 Other specified disorders of bone density and structure, left thigh; Z96.41 Presence of insulin pump (external) (internal); E03.8 Other specified hypothyroidism; E06.3 Autoimmune thyroiditis; E78.5 Hyperlipidemia, unspecified

== ENCOUNTER → 2024-06-15 | Outpatient (CLI) | payer BC ==
[2024-06-15 17:34] LABS: BASO # 0.1 10^3/uL (0.0-0.2); BASO % 1.5 % (0.0-1.0); EOS # 1.2 10^3/uL (0.0-0.5); HEMATOCRIT 37.5 % (36.0-47.0); HEMOGLOBIN 12.7 g/dl (12.0-15.5); LYMPH # 1.6 10^3/uL (1.5-5.0); LYMPH % 29.9 % (24.0-44.0); MEAN CORPUSCULAR HEMOGLOBIN 35.5 pg (27.0-33.0); MEAN CORPUSCULAR HGB CONC 33.9 g/dl (32.0-36.5); MEAN CORPUSCULAR VOLUME 104.7 fl (80.0-96.0); MONO # 0.5 10^3/uL (0.0-0.8); MONO % 10.4 % (2.0-8.0); NEUTROPHILS # 1.8 10^3/uL (1.5-8.5); NEUTROPHILS % 34.3 % (36.0-66.0); PLATELET COUNT, AUTOMATED 168 10^3/uL (150-450); RED BLOOD COUNT 3.58 10^6/uL (4.00-5.40); WHITE BLOOD COUNT 5.2 10^3/uL (4.0-10.0)
[2024-06-15 18:15] LABS: ERYTHROCYTE SEDIMENTATION RATE 3 mm/hr (0-30)
[2024-06-15 18:20] LABS: EOS % 23.7 % (0.0-3.0)
[2024-06-15 18:21] LABS: C REACTIVE PROTEIN QUANTITATIV < 0.40 MG/DL (<1.0)
[2024-06-15 18:23] LABS: ALBUMIN 3.4 G/DL (3.2-5.2); ALKALINE PHOSPHATASE 84 U/L (46-116); ALT/SGPT 27 U/L (7.0-40); AST/SGOT 20 U/L (<34); BILIRUBIN,TOTAL 0.5 MG/DL (0.3-1.2); BLOOD UREA NITROGEN 18 MG/DL (9-23); CALCIUM LEVEL 9.3 MG/DL (8.5-10.1); CARBON DIOXIDE LEVEL 29 MMOL/L (20-31); CHLORIDE LEVEL 107 MMOL/L (98-107); CREATININE FOR GFR 0.79 MG/DL (0.55-1.30); GLOMERULAR FILTRATION RATE > 60.0 (>51); GLUCOSE, FASTING 147 MG/DL (60-100); POTASSIUM SERUM 4.3 MMOL/L (3.5-5.1); SODIUM LEVEL 140 MMOL/L (136-145); TOTAL PROTEIN 6.2 G/DL (5.7-8.2)
== END ==
LOC: M WUC 10:51
PROVIDERS: ATTEND Internal Medicine Rheumatology
DX: M06.09 Rheumatoid arthritis without rheumatoid factor, multiple sites (principal); M89.49 Other hypertrophic osteoarthropathy, multiple sites; Z20.5 Contact with and (suspected) exposure to viral hepatitis; Z79.899 Other long term (current) drug therapy; R79.89 Other specified abnormal findings of blood chemistry; M79.641 Pain in right hand

== ENCOUNTER 2024-07-13 09:18 | Outpatient (CLI) | payer BC ==
[~2024-07-13] VITALS: Ht 165.1 cm; Wt 81.0 kg
[2024-07-13 09:20] VITALS: BP 167/75; O2SAT 96
[2024-07-13] MEDS: ACETAMINOPHEN 650MG ER TAB (TYLENOL ARTHRITIS) PO ONE (09:28)
[2024-07-13] MEDS: TOCILIZUMAB IV ONE (09:43)
[2024-07-13] MEDS: NS IV ONE (09:43)
[2024-07-13 10:40] VITALS: BP 135/93; O2SAT 97
== END 2024-07-13 10:45 ==
LOC: M INFU 09:18
PROVIDERS: ATTEND Internal Medicine Rheumatology
DX: M06.09 Rheumatoid arthritis without rheumatoid factor, multiple sites (principal); Z88.0 Allergy status to penicillin; Z88.8 Allergy status to other drugs, medicaments and biological substances
CPT/HCPCS: 96365; J3262

== ENCOUNTER 2024-08-10 09:36 | Outpatient (CLI) | payer BC ==
[~2024-08-10] VITALS: Ht 165.1 cm; Wt 81.0 kg
[2024-08-10 09:45] VITALS: BP 165/77; O2SAT 98
[2024-08-10] MEDS: ACETAMINOPHEN 650MG ER TAB (TYLENOL ARTHRITIS) PO ONE (09:59)
[2024-08-10] MEDS: NS IV ONE (10:29)
[2024-08-10] MEDS: TOCILIZUMAB IV ONE (10:29)
[2024-08-10 11:25] VITALS: BP 157/70; O2SAT 97
== END 2024-08-10 11:30 ==
LOC: M INFU 09:36
PROVIDERS: ATTEND Internal Medicine Rheumatology
DX: M06.09 Rheumatoid arthritis without rheumatoid factor, multiple sites (principal); Z88.0 Allergy status to penicillin; Z88.8 Allergy status to other drugs, medicaments and biological substances
CPT/HCPCS: 96365; J3262

== ENCOUNTER → 2024-09-18 | Outpatient (CLI) | payer BC ==
[~2024-09-18] MED LIST changes: -ALBUTEROL SULFATE 2.5MG/0.5ML INH NEB SOLN INH PRN; -EPINEPHrine INJ 1 MG/ML 1ML AMP IM PRN; -NS 1,000 ML IV SCH; -diphenhydrAMINE 50MG/ML VIAL IV PRN; -methylPREDNISolone 125MG 2ML VIAL IV PRN
== END ==
LOC: M CLY 10:20
PROVIDERS: ATTEND Family Medicine
DX: M25.571 Pain in right ankle and joints of right foot (principal); M54.16 Radiculopathy, lumbar region; M47.816 Spondylosis without myelopathy or radiculopathy, lumbar region; M47.817 Spondylosis without myelopathy or radiculopathy, lumbosacral region

== ENCOUNTER → 2024-09-18 | Outpatient (CLI) | payer BC | LOC: M CLY 09:58 | PROVIDERS: ATTEND Family Medicine | DX: M25.571 Pain in right ankle and joints of right foot (principal); M54.16 Radiculopathy, lumbar region; Z53.9 Procedure and treatment not carried out, unspecified reason ==

== ENCOUNTER → 2024-12-19 | Outpatient (REF) | payer BC ==
[2024-12-19 17:12] LABS: HEMATOCRIT 41.2 % (36.0-47.0); HEMOGLOBIN 13.7 g/dl (12.0-15.5); MEAN CORPUSCULAR HEMOGLOBIN 33.8 pg (27.0-33.0); MEAN CORPUSCULAR HGB CONC 33.3 g/dl (32.0-36.5); MEAN CORPUSCULAR VOLUME 101.7 fl (80.0-96.0); PLATELET COUNT, AUTOMATED 240 10^3/uL (150-450); RED BLOOD COUNT 4.05 10^6/uL (4.00-5.40); WHITE BLOOD COUNT 6.1 10^3/uL (4.0-10.0)
[2024-12-19 17:39] LABS: C REACTIVE PROTEIN QUANTITATIV < 0.50 MG/DL (<1.0)
[2024-12-19 17:40] LABS: ALBUMIN 3.4 G/DL (3.2-5.2); ALKALINE PHOSPHATASE 122 U/L (35-104); ALT/SGPT 25 U/L (7.0-40); AST/SGOT 27 U/L (<34); BILIRUBIN,TOTAL 0.5 MG/DL (0.3-1.2); BLOOD UREA NITROGEN 15 MG/DL (9-23); CALCIUM LEVEL 9.4 MG/DL (8.5-10.1); CARBON DIOXIDE LEVEL 32 MMOL/L (20-31); CHLORIDE LEVEL 104 MMOL/L (98-107); CREATININE FOR GFR 0.73 MG/DL (0.55-1.30); GLOMERULAR FILTRATION RATE > 60.0 (>51); GLUCOSE, FASTING 64 MG/DL (60-100); POTASSIUM SERUM 4.3 MMOL/L (3.5-5.1); SODIUM LEVEL 142 MMOL/L (136-145); TOTAL PROTEIN 7.3 G/DL (5.7-8.2)
[2024-12-19 17:41] LABS: THYROID STIMULATING HORMONE 1.247 uIU/ML (0.55-4.78)
[2024-12-19 18:05] LABS: HEMOGLOBIN A1c 6.6 % (4.0-6.0)
== END ==
LOC: M SFHCCLAY 11:09
PROVIDERS: ATTEND Family Medicine
DX: M06.09 Rheumatoid arthritis without rheumatoid factor, multiple sites (principal); E10.9 Type 1 diabetes mellitus without complications

== ENCOUNTER → 2024-12-19 | Outpatient (CLI) | payer BC | LOC: M CLY 11:25 | PROVIDERS: ATTEND Family Medicine | DX: M25.571 Pain in right ankle and joints of right foot (principal); M79.674 Pain in right toe(s); M19.071 Primary osteoarthritis, right ankle and foot; M77.31 Calcaneal spur, right foot; I70.201 Unspecified atherosclerosis of native arteries of extremities, right leg; M85.871 Other specified disorders of bone density and structure, right ankle and foot ==

== ENCOUNTER → 2025-06-21 | Outpatient (REF) | payer BC ==
[~2025-06-21] MED LIST changes: -PREG25CA PO; +PREG25CA63 PO
[2025-06-21 17:50] LABS: BASO # 0.1 10^3/uL (0.0-0.2); BASO % 1.5 % (0.0-1.0); EOS # 1.1 10^3/uL (0.0-0.5); EOS % 20.0 % (0.0-3.0); LYMPH # 1.2 10^3/uL (1.5-5.0); LYMPH % 23.4 % (24.0-44.0); MONO # 0.8 10^3/uL (0.0-0.8); MONO % 14.2 % (2.0-8.0); NEUTROPHILS # 2.2 10^3/uL (1.5-8.5); NEUTROPHILS % 40.7 % (36.0-66.0); PLATELET COUNT, AUTOMATED 239 10^3/uL (150-450)
== END ==
LOC: M LAB REF 12:56
PROVIDERS: ATTEND Nurse Practitioner Family
DX: D83.9 Common variable immunodeficiency, unspecified (principal)